=== PATIENT | female | born 1960 | race Caucasian/White ===

== ENCOUNTER 2020-08-04 15:35 | Outpatient (REF) | payer OTHER, SELFPAY | END 2020-08-04 15:36 | disposition home or self-care (01) | LOC: HO.HMGCX 15:35 | PROVIDERS: PCP Family Medicine; Visit Provider Family Medicine | DX: Z13.89 Encounter for screening for other disorder (principal) ==

== ENCOUNTER 2020-08-08 11:28 | Outpatient (REF) | payer OTHER, SELFPAY ==
--- NOTE | 2020-08-08 | US_ITS ---
EXAMINATION: US ABDOMEN LIMITED CLINICAL INFORMATION: Elevated transaminase levels. COMPARISON: MRI abdomen 04/27/2020. CT abdomen and pelvis 03/22/2020. TECHNIQUE: Real-time imaging of the right upper quadrant abdominal viscera. FINDINGS: PANCREAS: The visualized head and body of the pancreas appears unremarkable. Remainder of the pancreas is obscured by bowel gas. LIVER: Diffuse increased echogenicity of the liver parenchyma. No focal hepatic lesion. There is no intrahepatic biliary duct dilatation seen. GALLBLADDER: Normal. The gallbladder is physiologically distended without evidence of stones, sludge, polyps, wall thickening or pericholecystic fluid. COMMON BILE DUCT: Normal in caliber measuring 0.4 cm in diameter. RIGHT KIDNEY: Normal. No hydronephrosis. No renal calculi or focal parenchymal lesions. The kidney measures 10.0 cm in maximum dimension. FREE FLUID: None. US/US abdomen limited IMPRESSION: 1. Increased hepatic echogenicity more commonly seen with hepatic steatosis. Hepatic steatosis is also seen on the previous MRI of 04/27/2020. 2. No focal liver lesions or biliary duct dilatation. 3. Otherwise unremarkable study.
== END 2020-08-08 11:29 | disposition home or self-care (01) ==
LOC: HO.HMGCX 11:28
PROVIDERS: PCP Family Medicine; Visit Provider Family Medicine
DX: R74.01 Elevation of levels of liver transaminase levels (principal)
CPT/HCPCS: 76705

== ENCOUNTER → 2020-09-05 09:22 | Outpatient (BNVA) | payer MEDICAID, SELFPAY | PROVIDERS: Visit Provider Physician Assistant | DX: Z76.89 Persons encountering health services in other specified circumstances (principal) ==

== ENCOUNTER 2020-11-28 09:29 | Outpatient (REF) | payer MEDICAID, SELFPAY ==
[2020-11-28 10:28] LABS: MANUAL DIFF FLAG NO
[2020-11-28 10:41] LABS: Basophils Percent Auto 0.5 % (0-2); Eosinophils Absolute Auto 0.1 X10*3/uL (0.0-0.4); Eosinophils Percent Auto 1.8 % (0-4); Hematocrit 38.1 % (37-47); Hemoglobin 12.9 g/dl (12.0-16.0); Imm Gran Abs Auto 0.01 X10*3/uL (0.00-0.03); Imm Gran Pct Auto 0.3 % (0.0-0.4); Lymphocytes Absolute Auto 1.9 X10*3/uL (1.2-4.9); Mean Corpuscular HGB Conc 33.9 g/dl (31.0-35.0); Mean Corpuscular Hemoglobin 30.1 pg (27.0-33.0); Mean Platelet Volume 9.4 fL (9.4-12.3); Monocytes Absolute Auto 0.2 X10*3/uL (0.1-1.2); Monocytes Percent Auto 5.6 % (2-11); Neutrophils Absolute Auto 1.7 X10*3/uL (2.0-8.3); Neutrophils Percent Auto 43.8 % (45-73); Platelet Count 291 X10*3/uL (160-400); Red Blood Count 4.28 X10*6/uL (4.20-5.50); Red Cell Distribution Width 12.2 % (11.0-16.0); White Blood Count 3.9 X10*3/uL (4.8-10.8)
[2020-11-28 10:51] LABS: Alanine Aminotransferase 54 U/L (0-31); Albumin Level 4.5 g/dL (3.5-5.0); Alkaline Phosphatase 78 U/L (39-117); Anion Gap 11 (12-20); Aspartate Amino Transferase 40 U/L (5-31); Bilirubin Direct 0.2 mg/dL (0.0-0.5); Bilirubin Total 0.7 mg/dL (0.0-1.0); Blood Urea Nitrogen 14 mg/dL (9-16); Calcium 9.3 mg/dL (8.4-10.2); Carbon Dioxide 28 mmol/L (22-29); Chloride 108 mmol/L (96-108); Cholesterol 201 mg/dL; Estimated Glomerular Filt Rate > 60; Glucose Random 105 mg/dL (60-115); HDL Cholesterol 66 mg/dL; LDL Cholesterol Calculated 120 mg/dl; Potassium 4.1 mmol/L (3.3-5.1); Sodium 143 mmol/L (135-145); Total Protein 7.2 g/dL (6.5-8.0); Triglycerides 75 mg/dL
[2020-11-28 11:14] LABS: HBc Num1 0.06 S/CO (0.00-0.79); Hepatitis B Core Antibody Nonreactive (Nonreactive); ~HepC Num1 0.05 S/CO (0.00-0.79); ~Hepatitis C Antibody Nonreactive (Nonreactive)
[2020-11-28 11:28] LABS: HBS Num1 32.05 mIU/mL (0-7.99); HBsAGNum1 0.32 S/CO (0.00-0.99); Hepatitis B Surface Antigen Negative (Negative); ~Hepatitis B Surface Antibody REACTIVE (Nonreactive)
[2020-11-29 06:37] LABS: Insulin Level Total 8.1 uIU/mL
[2020-11-30 17:02] LABS: Mitochondrial Antibodies NEGATIVE (NEGATIVE)
[2020-12-01 04:43] LABS: ~Hepatitis A Antibody IgM Nonreactive (Nonreactive)
[2020-12-01 13:32] LABS: Anti Nuclear Antibody Screen NEGATIVE (NEGATIVE)
[2020-12-05 12:22] LABS: Smooth Muscle Antibody <20 U (<20)
== END 2020-11-28 09:30 | disposition home or self-care (01) ==
LOC: HO.LAB 09:29
PROVIDERS: PCP Family Medicine; Visit Provider Physician Assistant
DX: R10.11 Right upper quadrant pain (principal); K76.0 Fatty (change of) liver, not elsewhere classified; R79.89 Other specified abnormal findings of blood chemistry; R74.01 Elevation of levels of liver transaminase levels; E78.89 Other lipoprotein metabolism disorders; R74.8 Abnormal levels of other serum enzymes
CPT/HCPCS: 36415; 80053; 80061; 80076; 82248; 83525; 85025; 86038; 86039; 86255; 86256; 86704; 86706; 86709; 86803; 87340

== ENCOUNTER → 2021-01-02 09:55 | Outpatient (BNVA) | payer MEDICAID, SELFPAY | PROVIDERS: PCP Family Medicine; Visit Provider Internal Medicine Gastroenterology ==

== ENCOUNTER 2021-02-05 09:12 | Outpatient (REF) | payer MEDICAID, SELFPAY ==
--- NOTE | ~2021-02-05 | US_ITS ---
EXAMINATION: US ABDOMEN LIMITED WITH LIVER ELASTOGRAPHY CLINICAL INFORMATION: Abnormal serum enzymes. COMPARISON: None. TECHNIQUE: Real-time imaging of the abdominal viscera. Noninvasive ultrasound liver fibrosis assessment is performed using Mark ElastPQ point quantification shear wave elastography (pSWE) with a C5-2 MHz transducer. Multiple elastography samples are obtained. FINDINGS: PANCREAS: The visualized pancreatic head and body are normal in appearance. The remainder of the pancreas is obscured from visualization by the overlying bowel gas. LIVER: The liver demonstrates normal size, contour and increased echogenicity. There is a focal area of fatty sparing. No additional lesions seen. There is no intrahepatic ductal dilatation. The right lobe measures 14.9 cm in length. The left lobe measures 10.8 cm in length. Portal flow is antegrade. Shear wave liver elastography median stiffness is 1.79 m/s (reference: normal median stiffness is 1.3 m/s or less). IQR/median stiffness to assess sampling precision is 0.28 (reference: good quality data set is IQR/median stiffness of 0.15 or less). GALLBLADDER: Normal. The gallbladder is physiologically distended without evidence of stones, sludge, polyps, wall thickening or pericholecystic fluid. COMMON BILE DUCT: Normal in caliber measuring 0.5 cm in diameter. RIGHT KIDNEY: No hydronephrosis. There is a small echogenic upper pole stone measuring 0.2 x 0.1 cm. There are 2 anechoic cysts measuring 0.8 x 1.0 x 0.8 cm in lower pole and a cyst in the upper/midpole measuring 0.5 x 0.4 x 0.5 cm. The kidney measures 10.0 cm in maximum dimension. FREE FLUID: None. US/US abdomen walker w elastography IMPRESSION: 1. Diffuse hepatic steatosis with areas of focal fatty sparing. Normal hepatopedal flow seen in the portal vein. 2. Nonobstructive echogenic calculi upper pole and 2 cysts in the upper/midpole and lower pole right kidney. 3. Liver elastography: Mean liver stiffness measures 1.79 corresponding to cACLD suggestive. REFERENCE: Society of Radiologists in Ultrasound Liver Stiffness Thresholds (2020): LIVER STIFFNESS THRESHOLDS: *Liver Stiffness equal or less than 1.3 m/s: High probability of being normal. *Liver Stiffness less than 1.7 m/s: In the absence of other known clinical signs, rules out compensated advanced chronic liver disease. *Liver Stiffness 1.7-2.1 m/s: Suggestive of compensated advanced chronic liver disease but need further test for confirmation. *Liver Stiffness over 2.1 m/s: Rules in compensated advanced chronic liver disease. *Liver Stiffness over 2.4 m/s: Suggestive of clinically significant portal hypertension. QUALITY OF DATA SET: *IQR/Median value equal or less than 0.15 implies a quality data set. *IQR/Median value over 0.15 implies a poor quality data set. SIGNIFICANT CHANGE FROM PRIOR EXAM: Significant change if liver stiffness measurement is 10% or greater from prior exam. OTHER CONSIDERATIONS: The stage of liver fibrosis may be overestimated in the setting of acute hepatitis, liver inflammation, elevated liver function tests, hepatic vascular congestion, obstructive cholestasis, non-fasting state, and infiltrative diseases such as amyloidosis and lymphoma. In some patients with NAFLD, the liver stiffness thresholds for compensated advanced chronic liver disease may be lower. In causes other than viral hepatitis and NAFLD, liver stiffness thresholds are not well established.
== END 2021-02-05 09:13 | disposition home or self-care (01) ==
LOC: HO.US 09:12
PROVIDERS: Visit Provider Internal Medicine Gastroenterology
DX: R74.8 Abnormal levels of other serum enzymes (principal); E78.89 Other lipoprotein metabolism disorders
CPT/HCPCS: 76705; 76981

== ENCOUNTER → 2021-03-21 11:02 | Outpatient (BNVA) | payer MEDICAID, SELFPAY | PROVIDERS: Referring Provider Physician Assistant; Visit Provider Dietitian, Registered | DX: K21.9 Gastro-esophageal reflux disease without esophagitis (principal) | CPT/HCPCS: 97802 ==

== ENCOUNTER → 2021-06-20 11:26 | Outpatient (BNVA) | payer MEDICAID, SELFPAY | PROVIDERS: Visit Provider Dietitian, Registered | DX: K21.9 Gastro-esophageal reflux disease without esophagitis (principal) | CPT/HCPCS: 97803 ==

== ENCOUNTER 2021-06-25 09:15 | Outpatient (REF) | payer MEDICAID, SELFPAY ==
--- NOTE | ~2021-06-25 | MM_ITS ---
EXAMINATION: MM SCREENING DIGITAL BREAST TOMOSYNTHESIS, BILATERAL CLINICAL INFORMATION: Screening. Asymptomatic. The lifetime risk of breast cancer based on the Tyrer-Cuzick Model is 7%. COMPARISON: Mammography: 10/20/2018, 06/20/2017, 06/17/2016 TECHNIQUE: Digital breast tomosynthesis is performed in both the craniocaudal and mediolateral oblique views along with computer-aided detection (CAD). Synthesized 2D images are generated from the tomosynthesis. FINDINGS: The breasts are heterogeneously dense, which may obscure small masses (ACR BI-RADS breast composition Category c). There are no significant masses, abnormal calcifications, or other abnormalities. No developing density. Parenchymal pattern is similar to prior studies. The axilla are unremarkable. Skin contours are smooth. MM/MM tomosynthesis screening BI IMPRESSION: No mammographic evidence of malignancy. ASSESSMENT: BI-RADS 1: Negative RECOMMENDATION: Routine annual mammography screening. This patient's information was entered into a reminder system with a target due date for their next mammogram.
== END 2021-06-25 09:16 | disposition home or self-care (01) ==
LOC: HO.MAMMO 09:15
PROVIDERS: Visit Provider Internal Medicine
DX: Z12.31 Encounter for screening mammogram for malignant neoplasm of breast (principal)
CPT/HCPCS: 77063; 77067

== ENCOUNTER → 2021-07-10 10:31 | Outpatient (BNVA) | payer MEDICAID, SELFPAY | PROVIDERS: Visit Provider Internal Medicine Gastroenterology | DX: K63.5 Polyp of colon (principal); E78.89 Other lipoprotein metabolism disorders; R74.8 Abnormal levels of other serum enzymes | CPT/HCPCS: 99212 ==

== ENCOUNTER 2021-07-18 11:01 | Outpatient (REF) | payer MEDICAID, SELFPAY ==
[2021-07-18 11:22] LABS: MANUAL DIFF FLAG NO
[2021-07-18 11:45] LABS: Basophils Percent Auto 0.5 % (0-2); Eosinophils Absolute Auto 0.1 X10*3/uL (0.0-0.4); Eosinophils Percent Auto 2.3 % (0-4); Hematocrit 36.8 % (37.0-47.0); Hemoglobin 12.6 g/dl (12.0-16.0); Imm Gran Abs Auto 0.01 X10*3/uL (0.00-0.03); Imm Gran Pct Auto 0.2 % (0.0-0.4); Lymphocytes Percent Auto 44.1 % (20-40); Mean Corpuscular HGB Conc 34.2 g/dl (31.0-35.0); Mean Corpuscular Hemoglobin 30.4 pg (27.0-33.0); Mean Corpuscular Volume 88.7 fL (80.0-98.0); Monocytes Absolute Auto 0.3 X10*3/uL (0.1-1.2); Monocytes Percent Auto 7.2 % (2-11); Neutrophils Percent Auto 45.7 % (45-73); Platelet Count 252 X10*3/uL (160-400); Red Blood Count 4.15 X10*6/uL (4.20-5.50); Red Cell Distribution Width 11.9 % (11.0-16.0); White Blood Count 4.4 X10*3/uL (4.8-10.8)
[2021-07-18 12:02] LABS: Prothrombin Time 11.8 SEC (9.9-13.0)
[2021-07-18 12:10] LABS: Alanine Aminotransferase 22 U/L (0-31); Albumin Level 4.2 g/dL (3.5-5.0); Alkaline Phosphatase 89 U/L (39-117); Anion Gap 12 (12-20); Aspartate Amino Transferase 22 U/L (5-31); Bilirubin Total 0.5 mg/dL (0.0-1.0); Blood Urea Nitrogen 18 mg/dL (9-16); Calcium 9.2 mg/dL (8.4-10.2); Carbon Dioxide 28 mmol/L (22-29); Chloride 109 mmol/L (96-108); Estimated Glomerular Filt Rate > 60; Glucose Random 97 mg/dL (60-115); Potassium 4.5 mmol/L (3.3-5.1); Sodium 144 mmol/L (135-145); Total Protein 6.6 g/dL (6.5-8.0)
== END 2021-07-18 11:02 | disposition home or self-care (01) ==
LOC: HO.LAB 11:01
PROVIDERS: PCP Internal Medicine; Visit Provider Internal Medicine Gastroenterology
DX: E78.89 Other lipoprotein metabolism disorders (principal); R74.8 Abnormal levels of other serum enzymes; K63.5 Polyp of colon; K75.81 Nonalcoholic steatohepatitis (NASH)
CPT/HCPCS: 36415; 80053; 85025; 85610

== ENCOUNTER 2021-10-30 09:24 | Day surgery (SDC) | payer MEDICAID, SELFPAY ==
[2021-10-25 11:59] VITALS: BMI 24.3
--- NOTE | 2021-10-30 09:47 | MHC.SHP ---
Pre-Procedural Eval Section A Date of Service: 10/30/21 Section B Chief Complaint: colon polyp Relevant Family History (Specify if Yes): No Relevant Social History: None Present Medications: see Short Stay Collaborative assessment Medical History: Significant History (Elevated liver enzymes Gastroesophageal reflux disease Steatosis) History of Previous Operations: Relevant previous surgery/procedure and date(s) (hysterectomy, endoscopy) Allergies: Allergies Allergy/AdvReac Type Severity Reaction Status Date / Time acetaminophen [ACETAMINOPHEN] Allergy Intermediate Shows Verified 07/10/21 10:50 Hepitis when takes too much oxycodone [OXYCODONE] Allergy Intermediate GI UPSET Verified 07/10/21 10:50 Review of Systems Sugical H&P ROS: Negative: Constitution, Cardiovascular, Respiratory, Neurological, Psychiatric, Hem-Onc, Allergic/Immunologic, Gastrointestinal, Genitourinary, Musculoskeletal, Integumentary, Endocrine and Eyes/Ears/Nose/Throat Exam Surgical H&P Exam: Normal: HEENT, Normal: Heart, Normal: Lungs, Normal: Extremities, Normal: Abdomen, Normal: Skin and Normal: Neurological Plan Diagnosis/Plan: Unchanged I have reviewed the history and physical and performed a pertinent physical examination on my patient. No changes have occurred unless specified.
--- NOTE | 2021-10-30 10:04 | PC.NURSE ---
PT @ 0955 VASOVAGAL DIZZY WITH IV ATTEMPT X 1 - REMOVED & PRESSURE APPLIED, & PALE, HR SBRADY 26 - 30'S - REVERSE TRENDELENBERG & LEGS UP. SUSHANT RN PRESENT WITH THIS RN. NEW IV STARTED #20 R F/A. VERY SCLEROSED VEINS. BP 97/53, HR 45 SBRADY. INC OF STOOL SM AMT. 10:00 IMMEDIATE LR W.O WITH HR MID 40'S. 97/53. (BASELINE 55 HR INITIALLY UPON ARRIVAL. ) ABLE TO AMBULATE 1 ASSIST WITHOUT DIZZINESS FOR FURTHER STOOL, CLEAR YELLOW.) BP 115/61
--- NOTE | 2021-10-30 10:23 | HO.ANESPROP2 ---
HPI - Anesthesia Eval Consult details Narrative: Screening [facility] Active Problems Active Problems: All Active Problems (Updated 07/10/21 @ 11:24 by Ondina Hooker MD) Colon polyp (Acute) Gastroesophageal reflux disease (Acute) Steatosis (Acute) Elevated liver enzymes (Acute) Past Medical History Medical History Elevated liver enzymes Gastroesophageal reflux disease Steatosis Family History Family History Father Hypercholesterolemia Mother Hypertension Osteoporosis Arthritis Family history of problems with anesthesia: No Surgical History Surgical History History of hysterectomy Hx of colonoscopy Hx of endoscopy History of Problems with Anesthesia: No Social History Social History Household Members Other:: lives with father Alcohol intake: never Patient Tobacco Use Status: Never used Tobacco Use of substances other than those prescribed or required for medical reasons: No Are you DNR?: No Advance Directives: No Advance Directives Information Provided: Yes Patient : No (hysterectomy) Current occupational status: employed 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 Meds Allergies Allergy/AdvReac Type Severity Reaction Status Date / Time acetaminophen [ACETAMINOPHEN] Allergy Intermediate Shows Verified 07/10/21 10:50 Hepitis when takes too much oxycodone [OXYCODONE] Allergy Intermediate GI UPSET Verified 07/10/21 10:50 Active Medications: Current Medications Lactated Ringer's (Lr) 1,000 mls @ 50 mls/hr IVCONT .Q20H [facility] Home Medications Medication Instructions Recorded Confirmed Last Taken Type cholecalciferol (vitamin D3) 10 10 mcg PO DAILY 05/25/20 09/05/20 Unknown History mcg (400 unit) capsule (Vitamin D3) folic acid 800 mcg tablet 0.8 mg PO DAILY 05/25/20 09/05/20 Unknown History omeprazole 20 mg capsule,delayed mg PO 05/25/20 09/05/20 Unknown History release B-complex with vitamin C 1 tab PO DAILY 07/10/21 Unknown History cetirizine 10 mg tablet 10 mg PO DAILY 07/10/21 Unknown History finasteride 5 mg tablet 5 mg PO DAILY 07/10/21 Unknown History milk thistle 500 mg capsule 500 mg PO DAILY 07/10/21 Unknown History Exam Exam Date and Time: October 30, 2021 1023 Height,Weight and Vital Signs: Height 5 ft 2 in Weight 60.328 kg Airway Mallampati Class: II TM Dist: >3cm Neck ROM: Full Loose/Missing/Broken Teeth: No Heart: rrr+[id number] Lungs: cta b/l Assessment and Plan Assessment Anesthesia Assessment: Anesthesia Plan Discussed and Chart Reviewed Final Anesthetic Review Family History of Problems with Anesthesia: No History of Problems with Anesthesia: No NPO: Yes ASA Class: II Final Preanesthetic Review: No Changes in Pt Med Stat, Meds/Allgs Chart Reviewed, Consent Obtained/Reviewed and Anes Risks/Benef Reviewed Patient Risk: Intermediate Procedure Risk: Low Assessment/Block/Sedation in SS: Assess/Block/Sedation-SS Anesthetic Plan Anesthetic Plan: MAC: and Agree w/ Assess. and Plan Disposition: Standard PACU
--- NOTE | 2021-10-30 11:24 | PM.OP ---
Brief Operative Note Date of Service: 10/30/21 Pre-op diagnosis: hx of polyp Post-op diagnosis: same Procedure: see op note Surgeon: Ondina Hooker MD Anesthesia: MAC Was an Lastex Operator used for this Procedure?: No Estimated blood loss (mL): 0 Condition: stable Disposition: PACU
--- NOTE | 2021-10-30 11:25 | W.PM.OPN ---
Operative Note Operative Note Date of Service: 10/30/21 Narrative: Operative Information Procedure Description: Colonoscopy COLONOSCOPY Instrument: Olympus variable stiffness pediatric scope 190L Colonoscopy Monitoring: Vital signs and clinical assessment, continuous EKG monitoring, Pulse oximetry, Carbon Dioxide monitoring and blood pressure monitoring were done throughout the procedure. Colon withdrawal time was 27 minutes. Procedure: The patient was placed in the left lateral decubitis position and pre-procedure medications were administered. After a digital rectal examination of the ano-rectum, the video colonoscope was inserted into the rectum and advanced through the colon to the cecum/TI. The colonoscope was slowly withdrawn in a retrograde panoramic fashion and the colon mucosa was carefully examined including a retroflexed view of the rectum. Findings and interventions are described below. Procedure Difficulty: easy Findings: Terminal Ileum-normal Cecum: 10-12 mm sessile polyp noted adjacent to ileocecal valve. scope was withdrawn and then distal attachement placed. Using this I was able to push the ileocecal valve out of the way and get better visualization of the polyp which was lifted with ORISE. It was removed with cold snare, with small amount of residual tissue removed with forceps. circumferential APC then applied to edges and base of polyp with good effect Ascending Colon: normal Transverse Colon -normal Descending Colon: 6-8 mm sessile polyp removed with forceps Sigmoid Colon: normal Rectum: Retroflexion with small internal hemorrhoids, grade I Anorectum - normal Colon preparation: [place] Bowel Preparation Scale Right colon; 3 Transverse colon: 3 Left colon; 2 (0 = Unprepared colon segment with mucosa not seen due to solid stool that cannot be cleared. 1 = Portion of mucosa of the colon segment seen, but other areas of the colon segment not well seen due to staining, residual stool and/or opaque liquid. 2 = Minor amount of residual staining, small fragments of stool and/or opaque liquid, but mucosa of colon segment seen well. 3 = Entire mucosa of colon segment seen well with no residual staining, small fragments of stool or opaque liquid) Impression and Post Procedure Diagnosis: polyps internal hemorrhoids Plan: High fiber diet leaflet Avoid straining at stool, epsom salts and sitz bath, anusol supps or cream Repeat Colonoscopy in 3 years due to polyps today and prior history or earlier if clinically indicated Above findings were reviewed with the patient and relevant handouts were provided if indicated.
[2021-10-30 11:30] VITALS: BP 86/60; PULSE 48; RESP 10; TEMP 36.2; O2SAT 99
[2021-10-30 11:36] VITALS: BP 94/50; PULSE 48; RESP 17; TEMP 36.5; O2SAT 97
[2021-10-30 11:46] VITALS: BP 112/64; PULSE 51; RESP 18; TEMP 36.1; O2SAT 98
== END 2021-10-30 12:32 | disposition home or self-care (01) ==
PROVIDERS: PCP Internal Medicine; Visit Provider Internal Medicine Gastroenterology
PROC: 0DJD8ZZ Inspection of Lower Intestinal Tract, Via Natural or Artificial Opening Endoscopic (ICD-10-PCS; CPT 45378; principal; 2021-10-30 10:30)
DX: Z12.11 Encounter for screening for malignant neoplasm of colon (principal); D12.0 Benign neoplasm of cecum; D12.4 Benign neoplasm of descending colon; K64.0 First degree hemorrhoids; K21.9 Gastro-esophageal reflux disease without esophagitis; K75.81 Nonalcoholic steatohepatitis (NASH); E78.89 Other lipoprotein metabolism disorders; R74.8 Abnormal levels of other serum enzymes; Z88.8 Allergy status to other drugs, medicaments and biological substances
CPT/HCPCS: 45385; 45380; 45381; 88305; J3010

== ENCOUNTER → 2021-11-23 10:08 | Outpatient (BNVA) | payer MEDICAID, SELFPAY | PROVIDERS: PCP Internal Medicine; Visit Provider Internal Medicine Gastroenterology | DX: Z13.89 Encounter for screening for other disorder (principal) ==

== ENCOUNTER 2021-12-11 01:03 | Emergency (ER) | payer MEDICAID, SELFPAY ==
[2021-12-11 01:24] VITALS: BP 93/71; PULSE 52; RESP 16; TEMP 36.6; O2SAT 100; BMI 24.7
[2021-12-11 02:04] VITALS: BP 136/80; PULSE 61; RESP 14; TEMP 36.7; O2SAT 99
[2021-12-11 04:34] VITALS: BP 140/81; PULSE 54; RESP 16; TEMP 36.6; O2SAT 100
[2021-12-11] MEDS: Ketorolac Tromethamine 15 MG/ML VIAL IM (05:52)
--- NOTE | 2021-12-11 06:02 | PC.NURSE ---
pt a&o, no sob or chest pain. Medicated per Oct.
--- NOTE | 2021-12-11 06:05 | ED.GENADULT ---
HPI - General Adult General Chief complaint: Dental/Oral Stated complaint: abscess ? on R side gum, pain Time Seen by Provider: 12/11/21 05:34 Source: patient and aprn Mode of arrival: ambulatory History of Present Illness HPI narrative: 61-year-old female presents with complaints of facial oral pain with some difficulty on fully opening her mouth and provides a history grinding her teeth but denies any fever or chills and also reports some right-sided neck discomfort that has not been associated with headache or visual disturbances. In addition, she denies any changes in hearing. She states that the neck pain is been ongoing for 2 months. Related Data Home Medications Medication Instructions Recorded Confirmed omeprazole 20 mg capsule,delayed mg PO 05/25/20 09/05/20 release B-complex with vitamin C 1 tab PO DAILY 07/10/21 cetirizine 10 mg tablet 10 mg PO DAILY 07/10/21 finasteride 5 mg tablet 5 mg PO DAILY 07/10/21 milk thistle 500 mg capsule 500 mg PO DAILY 07/10/21 cholecalciferol (vitamin D3) 25 25 mcg PO DAILY 11/23/21 mcg (1,000 unit) tablet Previous Rx's Medication Instructions Recorded colesevelam 625 mg tablet (WelChol) 1,250 mg PO BID 14 Days #56 tab 11/23/21 Allergies Allergy/AdvReac Type Severity Reaction Status Date / Time acetaminophen [ACETAMINOPHEN] Allergy Intermediate Shows Verified 12/11/21 01:30 Hepitis when takes too much oxycodone [OXYCODONE] Allergy Intermediate GI UPSET Verified 12/11/21 01:30 Review of Systems Review of Systems: Pertinent positives and negatives as stated in HPI 10 point review of systems is otherwise negative. 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 GENERAL: Well developed, well nourished, in no acute distress. HEAD: Normocephalic/atraumatic, no pain on palpation over the temporal area EYES: PERRLA, EOMI EARS: Ext canals without abnormality, TMs non-bulging and non-erythematous NOSE: Nares patent bilateral OROPHARYNX: no oral lesions noted, posterior pharynx clear and non-erythematous without noted tonsillar enlargement/erythema/exudates, no noted dental caries and no gingival swelling. On assessment jaw alignment patient is able to open her mouth without appreciated clicking or malalignment NECK: Supple, there is a noted sub cm painful or enlarged lymph node at the right suboccipital LUNGS: Normal breath sounds. No adventitious sounds or accessory muscle use. SpO2<100> CARDIOVASCULAR: Regular rate and rhythm without noted murmurs ABDOMEN: Soft, non-tender, non-distended with bowel sounds. MUSCULOSKELETAL: No tenderness, deformities, or effusions noted on gross inspection. EXTREMITIES: No cyanosis, clubbing or edema. SKIN: Inspection of the skin reveals no rashes NEUROLOGIC: Alert and oriented x 4. Strength and sensation to light touch were grossly intact x 4. Course Course Course Narrative: 61-year-old female with history and clinical presentation consistent with a small isolated subcentimeter enlarged lymph node at the right inferior occipital, there is no right ear pathology and on examination of the jaw there is no dislocation or clicking noted on assessment. In addition intraorally there is no noted gingival swelling, abscess and the only identified right lower molar farida patient denies any pain on tapping. She was provided with combination analgesics and and ESR was obtained. Review of all investigations demonstrates and negative ESR and on re-evaluation patient is feeling much better after the pain medication. She is otherwise discharged home in stable condition with instructions to follow-up with her dentist. Medical Decision Making Lab Data Labs: Lab Results 12/11/21 Range/Units 05:42 ESR 7 (0-20) MM/HR Discharge Plan Discharge Clinical Impression: Jaw pain Patient Disposition: Home, Self-Care Instructions: Atypical Facial Pain (ED) Additional Instructions: 1. Tylenol 1000 mg, por v?a oral, cada 6 horas seg?n sea necesario para controlar el dolor. No exceda los 4000 mg dentro de las 24 horas. 2. Ibuprofeno 400 mg, por v?a oral con leche o comida, cada 6 horas seg?n sea necesario para controlar el dolor. 3. Realice un seguimiento con reza proveedor de atenci?n primaria en los pr?ximos 1 a 2 d?as para destiny reevaluaci?n adicional del manejo ambulatorio. Regrese a la nneka de emergencias si los s?ntomas empeoran. Prescriptions: No Action finasteride 5 mg tablet 5 mg PO DAILY 0RF cetirizine 10 mg tablet 10 mg PO DAILY 0RF milk thistle 500 mg capsule 500 mg PO DAILY 0RF Rx Instructions: give with meal/snack B-complex with vitamin C Tablet 1 tab PO DAILY 0RF omeprazole 20 mg capsule,delayed release(DR/EC) PO 0RF cholecalciferol (vitamin D3) 25 mcg (1,000 unit) tablet 25 mcg PO DAILY 0RF colesevelam [WelChol] 625 mg tablet 1,250 mg PO BID 14 Days Qty: 56 0RF Referrals: Kevyn Hdz MD [Primary Care Provider] - Print Language: Arabic
[2021-12-11 06:21] LABS: Erythrocyte Sedimentation Rate 7 MM/HR (0-20)
== END 2021-12-11 07:01 | disposition home or self-care (01) ==
PROVIDERS: Emergency Provider Student in an Organized Health Care Education/Training Program; PCP Internal Medicine
DX: K04.7 Periapical abscess without sinus (principal); R68.84 Jaw pain; Z79.899 Other long term (current) drug therapy
CPT/HCPCS: 36415; 85652; 96372; 99284; J1885

== ENCOUNTER 2022-05-27 10:00 | Outpatient (REF) | payer MEDICAID, SELFPAY ==
[2022-05-27 11:20] LABS: MANUAL DIFF FLAG NO
[2022-05-27 11:45] LABS: Basophils Percent Auto 0.4 % (0-2); Eosinophils Absolute Auto 0.1 X10*3/uL (0.0-0.4); Eosinophils Percent Auto 1.7 % (0-4); Hematocrit 39.1 % (37.0-47.0); Hemoglobin 13.2 g/dl (12.0-16.0); Imm Gran Abs Auto 0.01 X10*3/uL (0.00-0.03); Imm Gran Pct Auto 0.2 % (0.0-0.4); Lymphocytes Percent Auto 42.7 % (20-40); Mean Corpuscular HGB Conc 33.8 g/dl (31.0-35.0); Mean Corpuscular Hemoglobin 29.7 pg (27.0-33.0); Mean Corpuscular Volume 88.1 fL (80.0-98.0); Mean Platelet Volume 8.6 fL (9.4-12.3); Monocytes Absolute Auto 0.3 X10*3/uL (0.1-1.2); Neutrophils Absolute Auto 2.3 x10*3/uL (2.0-8.3); Platelet Count 272 X10*3/uL (160-400); Red Blood Count 4.44 X10*6/uL (4.20-5.50); Red Cell Distribution Width 11.8 % (11.0-16.0); White Blood Count 4.7 X10*3/uL (4.8-10.8)
[2022-05-27 12:21] LABS: Alanine Aminotransferase 24 U/L (0-31); Albumin Level 4.5 g/dL (3.5-5.0); Alkaline Phosphatase 92 U/L (39-117); Anion Gap 15 (12-20); Aspartate Amino Transferase 24 U/L (5-31); Bilirubin Total 0.5 mg/dL (0.0-1.0); Blood Urea Nitrogen 22 mg/dL (9-16); Calcium 9.5 mg/dL (8.4-10.2); Carbon Dioxide 26 mmol/L (22-29); Chloride 107 mmol/L (96-108); Estimated Glomerular Filt Rate > 60; Glucose Random 99 mg/dL (60-115); Potassium 4.8 mmol/L (3.3-5.1); Sodium 143 mmol/L (135-145)
[2022-05-27 13:08] LABS: Folate 15.5 ng/mL (> or = 4.0); Vitamin B12 620 pg/mL (200-900)
== END 2022-05-27 10:01 | disposition home or self-care (01) ==
LOC: HO.LAB 10:00
PROVIDERS: PCP Internal Medicine; Referring Provider Internal Medicine; Visit Provider Internal Medicine Gastroenterology
DX: R74.8 Abnormal levels of other serum enzymes (principal); K75.81 Nonalcoholic steatohepatitis (NASH); E78.89 Other lipoprotein metabolism disorders
CPT/HCPCS: 36415; 80053; 82607; 82746; 85025; 99212

== ENCOUNTER 2022-07-01 09:36 | Outpatient (REF) | payer MEDICAID, SELFPAY ==
--- NOTE | ~2022-07-01 | MM_ITS ---
EXAMINATION: MM SCREENING DIGITAL BREAST TOMOSYNTHESIS, BILATERAL CLINICAL INFORMATION: Screening. Asymptomatic. COMPARISON: Mammography: 06/25/2021 and studies dating back to 06/17/2016. TECHNIQUE: Digital breast tomosynthesis is performed in both the craniocaudal and mediolateral oblique views along with computer-aided detection (CAD). Synthesized 2D images are generated from the tomosynthesis. FINDINGS: The breasts are heterogeneously dense, which may obscure small masses (ACR BI-RADS breast composition Category c). There are some skin calcifications noted bilaterally. On right mediolateral oblique projection there is question of an asymmetric density about the deep superior aspect. However, tomosynthesis views demonstrate this to represent superimposition of fibroglandular tissue. No new abnormal dominant mass is appreciated. MM/MM tomosynthesis screening BI IMPRESSION: No significant changes from prior exam. ASSESSMENT: BI-RADS 2: Benign. RECOMMENDATION: Routine annual mammography screening. This patient's information was entered into a reminder system with a target due date for their next mammogram.
== END 2022-07-01 09:37 | disposition home or self-care (01) ==
LOC: HO.MAMMO 09:36
PROVIDERS: PCP Internal Medicine; Visit Provider Internal Medicine
DX: Z12.31 Encounter for screening mammogram for malignant neoplasm of breast (principal)
CPT/HCPCS: 77063; 77067

== ENCOUNTER 2022-08-09 08:07 | Emergency (ER) | payer MEDICAID, SELFPAY ==
--- NOTE | ~2022-08-09 | CT_ITS ---
EXAMINATION: CT ABDOMEN AND PELVIS WITH CONTRAST CLINICAL INFORMATION: Abdominal pain, diarrhea and nausea COMPARISON: Previous CT of the abdomen and pelvis February 2020, MRI of the abdomen April 2020 and abdominal ultrasound most recent January 2021 TECHNIQUE: Multidetector volumetric images were obtained from the superior aspect of the liver through the pubic symphysis following administration 85 mL of Omnipaque 350 intravenous contrast. Sagittal and coronal reformatted images were obtained on the technologist's workstation. Oral contrast: Yes This CT examination was performed using dose optimization techniques as appropriate, variously including the following: *Automated exposure control *Adjustment of mA and/or kV according to patient size (this includes techniques or standardized protocols for targeted exams where dose is matched to indication/reason for exam; i.e. extremities or head) *Use of iterative reconstruction technique DLP: 472 mGy-cm FINDINGS: LUNG BASES: The visualized lung bases are unremarkable. LIVER, GALLBLADDER, AND BILIARY TREE: Mild fatty infiltration of the liver. Stable area of increased enhancement in the peripheral right lobe of the liver probably representing a small hemangioma axial image 16 series 3. No other focal liver lesion. Normal gallbladder. No biliary duct dilatation. PANCREAS: Unremarkable. SPLEEN: Unremarkable. Stable left upper quadrant splenule. ADRENAL GLANDS: Unremarkable. KIDNEYS AND URETERS: Small bilateral low-attenuation renal lesions probably representing cysts. These are not appreciably changed from previous exams. No imaging follow-up. Question small 1 to 2 mm stone in the mid left kidney BLADDER: Unremarkable. GASTROINTESTINAL TRACT: There is question of mild distention and wall thickening of the proximal small bowel. This may represent enteritis. The small and large bowel are otherwise unremarkable. The appendix is unremarkable. The stomach is unremarkable. ABDOMINAL WALL: Small umbilical and infraumbilical hernias containing fat. LYMPH NODES: Mild fat stranding of the small bowel mesentery and increasing small bowel mesentery lymphadenopathy. This may represent mesenteritis. Differential would include changes related to small bowel inflammation. VASCULAR: Unremarkable. PELVIC VISCERA: Unremarkable. OSSEOUS STRUCTURES: Mild degenerative changes of the spine. Stable small sclerotic lesion in the left L4 vertebral probably representing a bone island. CT/CT abdomen pelvis w IV con IMPRESSION: New small bowel mesentery lymphadenopathy and fat stranding and question mild dilatation of the proximal small bowel and small bowel wall thickening. Differential would include enteritis and mesenteritis. Question small left renal stone. Stable small renal cysts. Fatty liver. Stable probable small hemangioma in the right lobe of the liver. Fleischner guidelines were followed.
[2022-08-09 08:10] VITALS: BP 135/67; PULSE 84; RESP 16; TEMP 36.6; O2SAT 98; BMI 25.2
--- NOTE | 2022-08-09 08:32 | ED.NAVMDI ---
HPI - Nausea/Vomiting/Diarrhea General Chief complaint: Nausea/Vomiting/Diarrhea Stated complaint: Stomach Pain Diarrhea Time Seen by Provider: 08/09/22 08:15 Source: patient Mode of arrival: ambulatory Limitations: no limitations History of Present Illness HPI Narrative: 62-year-old female with history of GERD who presents to the ER for evaluation of nausea, diarrhea and diffuse upset stomach for the last day and a half. She states the last time she ate was Friday at 14:00, it was some [place] and food. She states since then she has had nonbloody watery diarrhea, diffuse belly ache with nausea and gas. She has had some chills but no fevers. No urinary symptoms. She states her father who also ate the same [place] food woke up this morning with diarrhea. She denies any URI symptoms. She denies any focal abdominal pain it is more diffuse and cramping in nature. MD elicited complaint: nausea, vomiting and abdominal pain Onset (ago): day(s) (1.5) Description of diarrhea: watery Associated nausea: Yes Associated abdominal pain: Yes Location of pain: diffuse Radiation: diffuse Pain consistency: intermittent Severity: moderate Quality: cramping Exacerbating factors: none Relieving factors: none Context: possible food poisoning Associated symptoms: myalgias, fever/chills, loss of appetite, malaise, nausea/vomiting and weakness Related Data Home Medications Medication Instructions Recorded Confirmed omeprazole 20 mg capsule,delayed mg PO 05/25/20 09/05/20 release B-complex with vitamin C 1 tab PO DAILY 07/10/21 cetirizine 10 mg tablet 10 mg PO DAILY 07/10/21 finasteride 5 mg tablet 5 mg PO DAILY 07/10/21 milk thistle 500 mg capsule 500 mg PO DAILY 07/10/21 cholecalciferol (vitamin D3) 25 25 mcg PO DAILY 11/23/21 mcg (1,000 unit) tablet Previous Rx's Medication Instructions Recorded colesevelam 625 mg tablet (WelChol) 1,250 mg PO BID 2 weeks #56 tabs 11/23/21 hydrocodone 5 mg-acetaminophen 325 1 tab PO Q8H PRN severe pain 08/09/22 mg tablet (scale score 7-10) #5 tabs ondansetron 4 mg disintegrating 4 mg PO Q8H PRN nausea and 08/09/22 tablet vomiting #7 tabs Allergies Allergy/AdvReac Type Severity Reaction Status Date / Time acetaminophen [ACETAMINOPHEN] Allergy Intermediate Shows Verified 05/27/22 10:11 Hepitis when takes too much oxycodone [OXYCODONE] Allergy Intermediate GI UPSET Verified 05/27/22 10:11 Review of Systems Review of Systems: Constitutional: No Fever, + Chills ENT/Mouth: No sore throat, No Rhinorrhea, No Swallowing Difficulty Cardiovascular: No Chest Pain, No SOB, No Orthopnea, No Edema Respiratory: No Cough, No Sputum, No Wheezing, No dyspnea Gastrointestinal: + Nausea, No Vomiting, + Diarrhea, + abdominal Pain, No Hematochezia, No Melena Genitourinary: No Dysuria, No Urinary Frequency, No Hematuria Musculoskeletal: + joint pain, + Myalgias Skin: No Skin Lesions, No rash Neuro: + Weakness, No Numbness, No Dizziness, No Headache Psych: No Anxiety/Panic, No Depression Heme/Lymph: No Bruising, No Lymphadenopathy Endocrine: No Polyuria, No Polydipsia Gastrointestinal: Gastrointestinal: Reports nausea PMFSH Past Medical History Medical History Elevated liver enzymes Gastroesophageal reflux disease Steatosis Surgical History History of hysterectomy Hx of colonoscopy Hx of endoscopy Family History Family History Father Hypercholesterolemia Mother Hypertension Osteoporosis Arthritis Social History Social History Household Members Other:: lives with father Alcohol intake: never Patient Tobacco Use Status: Never used Tobacco Smoked in Last 30 Days: No Use of substances other than those prescribed or required for medical reasons: No Advance Directives: No Advance Directives Information Provided: Yes Current occupational status: employed 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 Oriented X3. No acute distress. Eyes: Pupils equal, round and reactive to light. ENT: Pharynx normal. Neck: Normal inspection. Neck supple. CVS: Normal heart rate and rhythm. Pulses normal. Respiratory: No respiratory distress. Breath sounds normal. Abdomen: Soft mild diffuse abdominal tenderness to deep palpation without guarding or rebound, hyperactive +BS x4 Skin: Skin warm and dry. Normal skin color. Normal skin turgor. No rashes. Extremities: No lower extremity edema. Neuro: Oriented X 3. No motor deficit. No sensory deficit. Course Course Course Narrative: 62-year-old female presenting with nausea, nonbloody diarrhea and intermittent abdominal pains for the last day and half. Started after she ate some [place] food on Friday. She denies any blood in her stool. Doubt bacterial source. Will check stool samples, basic labs, and hydrate with IV fluids. Will reassess. Hold off on further imaging for now Reevaluation(s) Reevaluation #1: Labs show a minor leukopenia, WBC 3.6. No major electrolyte abnormalities. She continues to complain of some abdominal pain and is having ongoing loose stools. Will send stool studies and get CT scan for further evaluation. Reevaluation #2: CT scan showing new small bowel mesentery lymphadenopathy and fat stranding, question mild dilatation of the proximal small bowel and small bowel wall thickening. Differential would include enteritis and mesenteritis. Negative for C diff. found to be positive for Astrovirus, causing her to have viral gastroenteritis. Treatment is supportive care. She is tolerating p.o.. Pain is better controlled. Comfortable discharge home with pain control, antiemetics. Patient updated on results And plan. Medications Administered Discontinued Medications Generic Name Dose Route Start Last Admin Trade Name Freq PRN Reason Stop Dose Admin Sodium Chloride 1,000 mls @ 999 mls/hr 08/09/22 08:30 08/09/22 10:43 Ns IVCONT 08/09/22 09:30 Infused .Q1H1M SHIRA Infusion Iohexol 85 ml 08/09/22 12:09 08/09/22 12:10 Iohexol 350 Mg/Ml 100 Ml Infus..Btl IV 08/09/22 12:10 85 ml ONCE ONE Administration Morphine Sulfate 4 mg 08/09/22 11:28 12/16/22 12:09 Morphine Sulfate 4 Mg/Ml Cartridge IVPUSH 08/09/22 11:29 4 mg ONCE ONE Administration Protocol Ondansetron HCl 4 mg 08/09/22 08:16 08/09/22 09:04 Ondansetron Hcl 4 Mg/2 Ml Vial IVPUSH 08/09/22 08:17 4 mg ONCE ONE Administration Medical Decision Making Lab Data Result Diagrams: 08/09/22 09:13 08/09/22 09:13 Labs: Lab Results 08/09/22 08/09/22 08/09/22 Range/Units 09:00 09:00 09:13 WBC 3.6 L (4.8-10.8) X10*3/uL RBC 4.09 L (4.20-5.50) X10*6/uL Hgb 12.0 (12.0-16.0) g/dl Hct 35.4 L (37.0-47.0) % MCV 86.6 (80.0-98.0) fL MCH 29.3 (27.0-33.0) pg MCHC 33.9 (31.0-35.0) g/dl RDW 11.9 (11.0-16.0) % Plt Count 184 D (160-400) X10*3/uL MPV 8.3 L (9.4-12.3) fL Immature Gran % (Auto) 0.0 (0.0-0.4) % Neut % (Auto) 63.6 (45-73) % Lymph % (Auto) 21.5 (20-40) % [place] % (Auto) 13.5 H (2-11) % Eos % (Auto) 1.1 (0-4) % Baso % (Auto) 0.3 (0-2) % Lymph # (Auto) 0.8 L (1.2-4.9) X10*3/uL [place] # (Auto) 0.5 (0.1-1.2) X10*3/uL Eos # (Auto) 0.0 (0.0-0.4) X10*3/uL Baso # (Auto) 0.0 (0.0-0.2) X10*3/uL Abs Immat Gran (auto) 0.00 (0.00-0.03) X10*3/uL Absolute Neuts (auto) 2.3 (2.0-8.3) x10*3/uL Absolute Nucleated RBC 0.000 (0.0-0.012) X10*3/uL Nucleated RBC % (auto) 0.0 (0.0-0.2) /100WBC Sodium (135-145) mmol/L Potassium (3.3-5.1) mmol/L Chloride (96-108) mmol/L Carbon Dioxide (22-29) mmol/L Anion Gap (12-20) BUN (9-16) mg/dL Creatinine (0.5-1.4) mg/dL Estim Creat Clear Calc Estimated GFR Random Glucose (60-115) mg/dL Calcium (8.4-10.2) mg/dL Magnesium (1.6-2.6) mg/dL Total Bilirubin (0.0-1.0) mg/dL Direct Bilirubin (0.0-0.5) mg/dL AST (5-31) U/L ALT (0-31) U/L Alkaline Phosphatase (39-117) U/L Total Protein (6.5-8.0) g/dL Albumin (3.5-5.0) g/dL Lipase (8-78) U/L Urine Color Urine Appearance Urine pH (5.0-9.0) Ur Specific [place] (1.005-1.025) Urine Protein (Neg-Trace) mg/dL Urine Glucose (UA) (Negative) mg/dL Urine Ketones (Negative) mg/dL Urine Blood (Negative) Urine Nitrite (Negative) Ur Leukocyte Esterase (Negative) Urine RBC (0-2) /HPF Urine WBC (0-5) /HPF Ur Squamous Epith Cells (0-2) /HPF Urine Bacteria (None Seen) Hyaline Casts (0-2) /LPF Stl C. cayetanensis PCR (Not Detect.) Stool Rotavirus A PCR (Not Detect.) Stl Adenov F 40/41 PCR (Not Detect.) Stool Astrovirus (PCR) (Not Detect.) Stool Campylobacter PCR (Not Detect.) Stool Cryptosporidium PCR (Not Detect.) Stl Sh Tox Pr E STEC PCR (Not Detect.) Stool E coli O157 PCR (Not Detect.) Stl Enterotoxigenic E PCR (Not Detect.) Stool EPEC (PCR) (Not Detect.) Stool EAEC (PCR) (Not Detect.) Stl E. histolytica PCR (Not Detect.) Stool Giardia Lamblia PCR (Not Detect.) Stl P. shigelloides PCR (Not Detect.) Stool Salmonella PCR (Not Detect.) Stool Sapovirus (PCR) (Not Detect.) Stl Shigella/EIEC PCR (Not Detect.) St Y.enterocolitica PCR (Not Detect.) Stool Vibrio (PCR) (Not Detect.) Stl Vibrio cholerae PCR (Not Detect.) Stl Norovirus GI/GII PCR (Not Detect.) C. difficile Tox B Gene (Negative) COVID-19 (CARLA) Negative (Negative) COVID-19 Clin Com See Note Influenza Type A (CRISTIANO) Negative (Negative) Influenza Type B (CRISTIANO) Negative (Negative) Influenza A & B Note See Note 08/09/22 08/09/22 08/09/22 Range/Units 09:13 12:10 12:30 WBC (4.8-10.8) X10*3/uL RBC (4.20-5.50) X10*6/uL Hgb (12.0-16.0) g/dl Hct (37.0-47.0) % MCV (80.0-98.0) fL MCH (27.0-33.0) pg MCHC (31.0-35.0) g/dl RDW (11.0-16.0) % Plt Count (160-400) X10*3/uL MPV (9.4-12.3) fL Immature Gran % (Auto) (0.0-0.4) % Neut % (Auto) (45-73) % Lymph % (Auto) (20-40) % [place] % (Auto) (2-11) % Eos % (Auto) (0-4) % Baso % (Auto) (0-2) % Lymph # (Auto) (1.2-4.9) X10*3/uL [place] # (Auto) (0.1-1.2) X10*3/uL Eos # (Auto) (0.0-0.4) X10*3/uL Baso # (Auto) (0.0-0.2) X10*3/uL Abs Immat Gran (auto) (0.00-0.03) X10*3/uL Absolute Neuts (auto) (2.0-8.3) x10*3/uL Absolute Nucleated RBC (0.0-0.012) X10*3/uL Nucleated RBC % (auto) (0.0-0.2) /100WBC Sodium 139 (135-145) mmol/L Potassium 3.6 D (3.3-5.1) mmol/L Chloride 108 (96-108) mmol/L Carbon Dioxide 24 (22-29) mmol/L Anion Gap 11 L (12-20) BUN 10 (9-16) mg/dL Creatinine 0.72 (0.5-1.4) mg/dL Estim Creat Clear Calc 72.3 Estimated GFR > 60 Random Glucose 100 (60-115) mg/dL Calcium 8.2 L D (8.4-10.2) mg/dL Magnesium 2.0 (1.6-2.6) mg/dL Total Bilirubin 1.1 H (0.0-1.0) mg/dL Direct Bilirubin 0.3 (0.0-0.5) mg/dL AST 33 H (5-31) U/L ALT 31 (0-31) U/L Alkaline Phosphatase 81 (39-117) U/L Total Protein 5.5 L (6.5-8.0) g/dL Albumin 3.5 (3.5-5.0) g/dL Lipase 20 (8-78) U/L Urine Color Yellow Urine Appearance Cloudy Urine pH 5.5 (5.0-9.0) Ur Specific [place] 1.015 (1.005-1.025) Urine Protein Negative (Neg-Trace) mg/dL Urine Glucose (UA) Negative (Negative) mg/dL Urine Ketones Trace (Negative) mg/dL Urine Blood Negative (Negative) Urine Nitrite Negative (Negative) Ur Leukocyte Esterase Small (1+) H (Negative) Urine RBC 11-20 H (0-2) /HPF Urine WBC 11-20 H (0-5) /HPF Ur Squamous Epith Cells 6-10 (0-2) /HPF Urine Bacteria None Seen (None Seen) Hyaline Casts 3-5 (0-2) /LPF Stl C. cayetanensis PCR (Not Detect.) Stool Rotavirus A PCR (Not Detect.) Stl Adenov F 40/41 PCR (Not Detect.) Stool Astrovirus (PCR) (Not Detect.) Stool Campylobacter PCR (Not Detect.) Stool Cryptosporidium PCR (Not Detect.) Stl Sh Tox Pr E STEC PCR (Not Detect.) Stool E coli O157 PCR (Not Detect.) Stl Enterotoxigenic E PCR (Not Detect.) Stool EPEC (PCR) (Not Detect.) Stool EAEC (PCR) (Not Detect.) Stl E. histolytica PCR (Not Detect.) Stool Giardia Lamblia PCR (Not Detect.) Stl P. shigelloides PCR (Not Detect.) Stool Salmonella PCR (Not Detect.) Stool Sapovirus (PCR) (Not Detect.) Stl Shigella/EIEC PCR (Not Detect.) St Y.enterocolitica PCR (Not Detect.) Stool Vibrio (PCR) (Not Detect.) Stl Vibrio cholerae PCR (Not Detect.) Stl Norovirus GI/GII PCR (Not Detect.) C. difficile Tox B Gene NEGATIVE (Negative) COVID-19 (CARLA) (Negative) COVID-19 Clin Com Influenza Type A (CRISTIANO) (Negative) Influenza Type B (CRISTIANO) (Negative) Influenza A & B Note 08/09/22 Range/Units 12:30 WBC (4.8-10.8) X10*3/uL RBC (4.20-5.50) X10*6/uL Hgb (12.0-16.0) g/dl Hct (37.0-47.0) % MCV (80.0-98.0) fL MCH (27.0-33.0) pg MCHC (31.0-35.0) g/dl RDW (11.0-16.0) % Plt Count (160-400) X10*3/uL MPV (9.4-12.3) fL Immature Gran % (Auto) (0.0-0.4) % Neut % (Auto) (45-73) % Lymph % (Auto) (20-40) % [place] % (Auto) (2-11) % Eos % (Auto) (0-4) % Baso % (Auto) (0-2) % Lymph # (Auto) (1.2-4.9) X10*3/uL [place] # (Auto) (0.1-1.2) X10*3/uL Eos # (Auto) (0.0-0.4) X10*3/uL Baso # (Auto) (0.0-0.2) X10*3/uL Abs Immat Gran (auto) (0.00-0.03) X10*3/uL Absolute Neuts (auto) (2.0-8.3) x10*3/uL Absolute Nucleated RBC (0.0-0.012) X10*3/uL Nucleated RBC % (auto) (0.0-0.2) /100WBC Sodium (135-145) mmol/L Potassium (3.3-5.1) mmol/L Chloride (96-108) mmol/L Carbon Dioxide (22-29) mmol/L Anion Gap (12-20) BUN (9-16) mg/dL Creatinine (0.5-1.4) mg/dL Estim Creat Clear Calc Estimated GFR Random Glucose (60-115) mg/dL Calcium (8.4-10.2) mg/dL Magnesium (1.6-2.6) mg/dL Total Bilirubin (0.0-1.0) mg/dL Direct Bilirubin (0.0-0.5) mg/dL AST (5-31) U/L ALT (0-31) U/L Alkaline Phosphatase (39-117) U/L Total Protein (6.5-8.0) g/dL Albumin (3.5-5.0) g/dL Lipase (8-78) U/L Urine Color Urine Appearance Urine pH (5.0-9.0) Ur Specific [place] (1.005-1.025) Urine Protein (Neg-Trace) mg/dL Urine Glucose (UA) (Negative) mg/dL Urine Ketones (Negative) mg/dL Urine Blood (Negative) Urine Nitrite (Negative) Ur Leukocyte Esterase (Negative) Urine RBC (0-2) /HPF Urine WBC (0-5) /HPF Ur Squamous Epith Cells (0-2) /HPF Urine Bacteria (None Seen) Hyaline Casts (0-2) /LPF Stl C. cayetanensis PCR Not Detected (Not Detect.) Stool Rotavirus A PCR Not Detected (Not Detect.) Stl Adenov F 40/41 PCR Not Detected (Not Detect.) Stool Astrovirus (PCR) Detected A (Not Detect.) Stool Campylobacter PCR Not Detected (Not Detect.) Stool Cryptosporidium PCR Not Detected (Not Detect.) Stl Sh Tox Pr E STEC PCR Not Detected (Not Detect.) Stool E coli O157 PCR Not applicable (Not Detect.) Stl Enterotoxigenic E PCR Not Detected (Not Detect.) Stool EPEC (PCR) Not Detected (Not Detect.) Stool EAEC (PCR) Not Detected (Not Detect.) Stl E. histolytica PCR Not Detected (Not Detect.) Stool Giardia Lamblia PCR Not Detected (Not Detect.) Stl P. shigelloides PCR Not Detected (Not Detect.) Stool Salmonella PCR Not Detected (Not Detect.) Stool Sapovirus (PCR) Not Detected (Not Detect.) Stl Shigella/EIEC PCR Not Detected (Not Detect.) St Y.enterocolitica PCR Not Detected (Not Detect.) Stool Vibrio (PCR) Not Detected (Not Detect.) Stl Vibrio cholerae PCR Not Detected (Not Detect.) Stl Norovirus GI/GII PCR Not Detected (Not Detect.) C. difficile Tox B Gene (Negative) COVID-19 (CARLA) (Negative) COVID-19 Clin Com Influenza Type A (CRISTIANO) (Negative) Influenza Type B (CRISTIANO) (Negative) Influenza A & B Note Discharge Plan Discharge Clinical Impression: Viral gastroenteritis Patient Disposition: Home, Self-Care Instructions: Gastroenteritis (ED) Additional Instructions: You lab workup today was unremarkable. You have viral GI bug also known as gastroenteritis. Treatment is supportive care, symptoms usually resolve on their own in 48-72 hours. Recommend rest and plenty of oral hydration. Stick to a bland diet like soup and toast while you are not feeling well. Take the prescribed medication as needed for nausea. Recommend over the counter Pepto Bismol for upset stomach and diarrhea. Follow up with your doctor as needed. If you develop new or worsening symptoms call 911 or come back to the ER for further evaluation. Prescriptions: New hydrocodone-acetaminophen 5-325 mg tablet 1 tab PO Q8H PRN (Reason: severe pain (scale score 7-10)) Qty: 5 0RF Rx Instructions: Partial Fill upon patient request. ondansetron 4 mg tablet,disintegrating 4 mg PO Q8H PRN (Reason: nausea and vomiting) Qty: 7 0RF No Action finasteride 5 mg tablet 5 mg PO DAILY cetirizine 10 mg tablet 10 mg PO DAILY milk thistle 500 mg capsule 500 mg PO DAILY Rx Instructions: give with meal/snack B-complex with vitamin C Tablet 1 tab PO DAILY omeprazole 20 mg capsule,delayed release(DR/EC) PO cholecalciferol (vitamin D3) 25 mcg (1,000 unit) tablet 25 mcg PO DAILY colesevelam [WelChol] 625 mg tablet 1,250 mg PO BID 14 Days Qty: 56 0RF
[2022-08-09] MEDS: ondansetron HCL 4 MG/2 ML VIAL IVPUSH (09:04)
[2022-08-09] MEDS: 0.9 % Sodium Chloride 1,000 ML 999 ML IVCONT (09:04)
--- NOTE | 2022-08-09 09:21 | PC.NURSE ---
Pt c/o abdominal pain accompanied by nausea, dizziness and diarrhea since 08/07/22. The pt describes pain as cramping and stabbing. pt denies vomiting. pt is alert and oriented, resting quietly while watching tv. no apparent distress.
[2022-08-09 09:22] VITALS: BP 113/61
[2022-08-09 09:26] LABS: IDNOW Serial# 9DB6401D; Influenza A Negative (Negative); Influenza B2 Negative (Negative)
[2022-08-09 09:39] LABS: MANUAL DIFF FLAG NO
[2022-08-09 09:40] LABS: Basophils Percent Auto 0.3 % (0-2); Eosinophils Percent Auto 1.1 % (0-4); Hematocrit 35.4 % (37.0-47.0); Lymphocytes Absolute Auto 0.8 X10*3/uL (1.2-4.9); Lymphocytes Percent Auto 21.5 % (20-40); Mean Corpuscular HGB Conc 33.9 g/dl (31.0-35.0); Mean Corpuscular Hemoglobin 29.3 pg (27.0-33.0); Mean Corpuscular Volume 86.6 fL (80.0-98.0); Mean Platelet Volume 8.3 fL (9.4-12.3); Monocytes Absolute Auto 0.5 X10*3/uL (0.1-1.2); Monocytes Percent Auto 13.5 % (2-11); Neutrophils Absolute Auto 2.3 x10*3/uL (2.0-8.3); Neutrophils Percent Auto 63.6 % (45-73); Platelet Count 184 X10*3/uL (160-400); Red Blood Count 4.09 X10*6/uL (4.20-5.50); Red Cell Distribution Width 11.9 % (11.0-16.0); White Blood Count 3.6 X10*3/uL (4.8-10.8)
[2022-08-09 09:44] LABS: COVID-19 Test Negative (Negative); IDNOW Serial# 55D5AD1C
[2022-08-09 09:55] LABS: Alanine Aminotransferase 31 U/L (0-31); Albumin Level 3.5 g/dL (3.5-5.0); Alkaline Phosphatase 81 U/L (39-117); Anion Gap 11 (12-20); Aspartate Amino Transferase 33 U/L (5-31); Bilirubin Direct 0.3 mg/dL (0.0-0.5); Bilirubin Total 1.1 mg/dL (0.0-1.0); Blood Urea Nitrogen 10 mg/dL (9-16); Calcium 8.2 mg/dL (8.4-10.2); Carbon Dioxide 24 mmol/L (22-29); Chloride 108 mmol/L (96-108); Creatinine Clr Calc Pharmacy 72.3; Estimated Glomerular Filt Rate > 60; Glucose Random 100 mg/dL (60-115); Lipase 20 U/L (8-78); Potassium 3.6 mmol/L (3.3-5.1); Sodium 139 mmol/L (135-145); Total Protein 5.5 g/dL (6.5-8.0)
[2022-08-09] MEDS: Morphine Sulfate 4 MG/ML CARTRIDGE IVPUSH (12:09)
[2022-08-09] MEDS: iohexoL 350 MG/ML 100 ML INFUS..BTL 85 ML IV (12:10)
[2022-08-09 12:25] LABS: Appearance Urine Cloudy; Color Urine Yellow; Glucose Urine UA Negative (Negative); Leukocyte Esterase Urine Small (1+) (Negative); Nitrite Urine Negative (Negative); PH 5.5 (5.0-9.0); Specific Gravity - Urine 1.015 (1.005-1.025); UMIC TRIGGER UACC YES; Urine Blood Negative (Negative); Urine Ketones Trace mg/dL (Negative); Urine Protein Negative (Neg-Trace)
[2022-08-09 12:33] LABS: Bacteria Urine None Seen (None Seen); UACC Culture Trigger YES
[2022-08-09 13:28] LABS: CDiff Gene PCR NEGATIVE (Negative)
[2022-08-09 14:21] LABS: Adenovirus F 40/41 Not Detected (Not Detect.); Astrovirus Detected (Not Detect.); Campylobacter Not Detected (Not Detect.); Cryptosporidium Not Detected (Not Detect.); Cyclospora cayetanensis Not Detected (Not Detect.); E. coli EAEC Not Detected (Not Detect.); E. coli EPEC Not Detected (Not Detect.); E. coli ETEC Not Detected (Not Detect.); E. coli STEC Not Detected (Not Detect.); Entamoeba histolytica Not Detected (Not Detect.); Giardia lamblia Not Detected (Not Detect.); Norovirus GI/GII Not Detected (Not Detect.); Plesiomonas shigelloides Not Detected (Not Detect.); Rotavirus A Not Detected (Not Detect.); Salmonella Not Detected (Not Detect.); Sapovirus Not Detected (Not Detect.); Shigella sp./EIEC Not Detected (Not Detect.); Vibrio Not Detected (Not Detect.); Vibrio Cholerae Not Detected (Not Detect.); Yersinia enterocolitica Not Detected (Not Detect.)
== END 2022-08-09 15:05 | disposition home or self-care (01) ==
PROVIDERS: Physician Assistant; Emergency Provider Student in an Organized Health Care Education/Training Program; PCP Internal Medicine
DX: A08.4 Viral intestinal infection, unspecified (principal); Z20.822 Contact with and (suspected) exposure to COVID-19
CPT/HCPCS: 74177; 80048; 80076; 81001; 83690; 83735; 85025; 87086; 87493; 87502; 87507; 87635; 96361; 96374; 96375; 99284; J2270; J2405; Q9967

== ENCOUNTER 2022-10-28 09:05 | Outpatient (REF) | payer MEDICAID, SELFPAY ==
[2022-10-28 10:23] LABS: MANUAL DIFF FLAG NO
[2022-10-28 11:01] LABS: Basophils Percent Auto 0.4 % (0-2); Eosinophils Absolute Auto 0.1 X10*3/uL (0.0-0.4); Eosinophils Percent Auto 2.6 % (0-4); Hematocrit 38.8 % (37.0-47.0); Hemoglobin 13.3 g/dl (12.0-16.0); Lymphocytes Absolute Auto 2.2 X10*3/uL (1.2-4.9); Lymphocytes Percent Auto 47.4 % (20-40); Mean Corpuscular HGB Conc 34.3 g/dl (31.0-35.0); Mean Corpuscular Hemoglobin 29.6 pg (27.0-33.0); Mean Corpuscular Volume 86.4 fL (80.0-98.0); Mean Platelet Volume 8.6 fL (9.4-12.3); Monocytes Absolute Auto 0.4 X10*3/uL (0.1-1.2); Monocytes Percent Auto 7.9 % (2-11); Neutrophils Absolute Auto 1.9 x10*3/uL (2.0-8.3); Neutrophils Percent Auto 41.7 % (45-73); Platelet Count 256 X10*3/uL (160-400); Red Blood Count 4.49 X10*6/uL (4.20-5.50); Red Cell Distribution Width 12.2 % (11.0-16.0); White Blood Count 4.6 X10*3/uL (4.8-10.8)
[2022-10-28 11:37] LABS: Alanine Aminotransferase 61 U/L (0-31); Albumin Level 4.4 g/dL (3.5-5.0); Alkaline Phosphatase 85 U/L (39-117); Anion Gap 12 (12-20); Aspartate Amino Transferase 47 U/L (5-31); Bilirubin Total 1.1 mg/dL (0.0-1.0); Blood Urea Nitrogen 13 mg/dL (9-16); Calcium 9.2 mg/dL (8.4-10.2); Carbon Dioxide 28 mmol/L (22-29); Chloride 108 mmol/L (96-108); Estimated Glomerular Filt Rate > 60; Glucose Random 94 mg/dL (60-115); Potassium 4.6 mmol/L (3.3-5.1); Sodium 143 mmol/L (135-145); Total Protein 6.7 g/dL (6.5-8.0)
[2022-10-31 06:05] LABS: Vitamin A 60 mcg/dL (38-98)
== END 2022-10-28 09:06 | disposition home or self-care (01) ==
LOC: HO.LAB 09:05
PROVIDERS: PCP Internal Medicine; Visit Provider Internal Medicine Gastroenterology
DX: K75.81 Nonalcoholic steatohepatitis (NASH) (principal); R10.13 Epigastric pain; K64.9 Unspecified hemorrhoids; E78.89 Other lipoprotein metabolism disorders; R74.8 Abnormal levels of other serum enzymes; Z79.899 Other long term (current) drug therapy
CPT/HCPCS: 36415; 80053; 84590; 85025; 85610; 99212

== ENCOUNTER → 2022-11-27 09:02 | Outpatient (BNVA) | payer MEDICAID, SELFPAY | PROVIDERS: PCP Internal Medicine; Referring Provider Internal Medicine Gastroenterology; Visit Provider Surgery | DX: K64.8 Other hemorrhoids (principal); Z80.3 Family history of malignant neoplasm of breast | CPT/HCPCS: 46600; 99202 ==

== ENCOUNTER 2022-12-02 08:55 | Outpatient (REF) | payer MEDICAID, SELFPAY ==
--- NOTE | ~2022-12-02 | US_ITS ---
EXAMINATION: US ABDOMEN LIMITED WITH LIVER ELASTOGRAPHY CLINICAL INFORMATION: Nonalcoholic steatohepatitis. COMPARISON: None available. TECHNIQUE: Real-time imaging of the abdominal viscera. Noninvasive ultrasound liver fibrosis assessment is performed using Mark ElastPQ point quantification shear wave elastography (2D-SWE) with a C5-2 MHz transducer. Multiple elastography samples are obtained. FINDINGS: PANCREAS: The visualized pancreatic head and body are normal in appearance. The tail of the pancreas is obscured from visualization by the overlying bowel gas. LIVER: The liver demonstrates normal size, contour and increased echogenicity. No focal lesion or intrahepatic biliary duct dilatation. The right lobe measures 15.1 cm in length. The left lobe measures 10.9 cm in length. Portal flow is hepatopedal. Shear wave liver elastography median stiffness is 1.35 m/s (reference: normal median stiffness is 1.3 m/s or less). IQR/median stiffness to assess sampling precision is 0.08 (reference: good quality data set is IQR/median stiffness of 0.15 or less). GALLBLADDER: Normal. The gallbladder is physiologically distended without evidence of stones, sludge, polyps, wall thickening or pericholecystic fluid. COMMON BILE DUCT: Normal in caliber measuring 0.2 cm in diameter. RIGHT KIDNEY: Normal. No hydronephrosis. No renal calculi or focal parenchymal lesions. The kidney measures 9.1 cm in maximum dimension. FREE FLUID: None. US/US abdomen walker w elastography IMPRESSION: 1. Mild hepatic steatosis without focal lesion. 2. Liver Elastography: Median liver stiffness measures1.35 m/s corresponding to cACLD ruled out. REFERENCE: Society of Radiologists in Ultrasound Liver Stiffness Thresholds (2020): LIVER STIFFNESS THRESHOLDS: *Liver Stiffness equal or less than 1.3 m/s: High probability of being normal. *Liver Stiffness less than 1.7 m/s: In the absence of other known clinical signs, rules out compensated advanced chronic liver disease. *Liver Stiffness 1.7-2.1 m/s: Suggestive of compensated advanced chronic liver disease but need further test for confirmation. *Liver Stiffness over 2.1 m/s: Rules in compensated advanced chronic liver disease. *Liver Stiffness over 2.4 m/s: Suggestive of clinically significant portal hypertension. QUALITY OF DATA SET: *IQR/Median value equal or less than 0.15 implies a quality data set. *IQR/Median value over 0.15 implies a poor quality data set. SIGNIFICANT CHANGE FROM PRIOR EXAM: Significant change if liver stiffness measurement is 10% or greater from prior exam. OTHER CONSIDERATIONS: The stage of liver fibrosis may be overestimated in the setting of acute hepatitis, liver inflammation, elevated liver function tests, hepatic vascular congestion, obstructive cholestasis, non-fasting state, and infiltrative diseases such as amyloidosis and lymphoma. In some patients with NAFLD, the liver stiffness thresholds for compensated advanced chronic liver disease may be lower. In causes other than viral hepatitis and NAFLD, liver stiffness thresholds are not well established.
== END 2022-12-02 08:56 | disposition home or self-care (01) ==
LOC: HO.US 08:55
PROVIDERS: PCP Internal Medicine; Visit Provider Internal Medicine Gastroenterology
DX: E78.89 Other lipoprotein metabolism disorders (principal); K74.60 Unspecified cirrhosis of liver; K75.81 Nonalcoholic steatohepatitis (NASH); R74.8 Abnormal levels of other serum enzymes
CPT/HCPCS: 76705; 76981

== ENCOUNTER 2022-12-02 09:25 | Outpatient (REF) | payer MEDICAID, SELFPAY ==
[2022-12-02 10:45] LABS: Alanine Aminotransferase 33 U/L (0-31); Albumin Level 4.3 g/dL (3.5-5.0); Alkaline Phosphatase 92 U/L (39-117); Anion Gap 10 (12-20); Aspartate Amino Transferase 26 U/L (5-31); Bilirubin Total 0.8 mg/dL (0.0-1.0); Blood Urea Nitrogen 15 mg/dL (9-16); Calcium 9.3 mg/dL (8.4-10.2); Carbon Dioxide 28 mmol/L (22-29); Chloride 108 mmol/L (96-108); Estimated Glomerular Filt Rate > 60; Glucose Random 105 mg/dL (60-115); Potassium 4.6 mmol/L (3.3-5.1); Sodium 141 mmol/L (135-145); Total Protein 6.6 g/dL (6.5-8.0)
== END 2022-12-02 09:26 | disposition home or self-care (01) ==
LOC: HO.LAB 09:25
PROVIDERS: PCP Internal Medicine; Visit Provider Internal Medicine Gastroenterology
DX: K75.81 Nonalcoholic steatohepatitis (NASH) (principal)
CPT/HCPCS: 36415; 80053

== ENCOUNTER → 2023-01-08 09:20 | Outpatient (BNVA) | payer MEDICAID, SELFPAY | PROVIDERS: PCP Internal Medicine; Visit Provider Surgery | DX: K64.8 Other hemorrhoids (principal); Z80.3 Family history of malignant neoplasm of breast | CPT/HCPCS: 99212 ==

== ENCOUNTER 2023-01-21 09:18 | Outpatient (REF) | payer MEDICAID, SELFPAY ==
--- NOTE | ~2023-01-21 | CT_ITS ---
EXAMINATION: CT SOFT TISSUE NECK WITH CONTRAST CLINICAL INFORMATION: Neck pain. Lymphadenopathy. COMPARISON: No relevant prior imaging. TECHNIQUE: Following the intravenous administration of 60 mL of Omnipaque 350 intravenous contrast, helical imaging was performed in the axial plane with generation of coronal and sagittal reformatted images. This CT examination was performed using dose optimization techniques as appropriate, variously including the following: *Automated exposure control *Adjustment of mA and/or kV according to patient size (this includes techniques or standardized protocols for targeted exams where dose is matched to indication/reason for exam; i.e. extremities or head) *Use of iterative reconstruction technique DLP: 271 mGy-cm FINDINGS: There are multiple pathologically enlarged heterogeneously enhancing right sided cervical lymph nodes, the majority of which are located within level III. The dominant lymph node best visualized on axial image 66 of 129 series 2 measures 1.3 cm in maximal transaxial dimension. In addition to this finding there is a nodule within the right lobe of the thyroid gland that demonstrates some heterogeneous intralesional calcification measuring 1.3 cm in maximal transaxial dimension which may represent a potential source of zeeshan disease. There is no identifiable mucosal mass however a squamous cell carcinoma cannot be definitively excluded on the basis of this examination and correlation with nasolaryngoscopy is recommended to exclude this possibility. Parapharyngeal and retromaxillary fat is preserved. [employer] spaces are symmetric. The parotid and submandibular glands are normal. The tongue base and epiglottis are normal. Preepiglottic fat is preserved. Glottic and subglottic airways are widely patent. Lung apices are clear. There is no mediastinal or axillary adenopathy within the [id number]-ag-[id number] of this examination. Aortic arch apex is normal. Cervical carotid and vertebral arteries are patent. Internal jugular veins fill symmetrically. There is no acute osseous finding. Specifically no worrisome lytic or blastic osseous lesion. The skull base is intact. No mastoid or middle ear effusion. No active paranasal sinus disease. Limited visualization of the intracranial anatomy reveals no abnormal finding. CT/CT soft tissue neck w IV con IMPRESSION: There are multiple pathologically enlarged heterogeneously enhancing right-sided cervical lymph nodes, the majority of which are located within level III. In addition to this finding there is a nodule within the right lobe of the thyroid gland that demonstrates some heterogeneous intralesional calcification measuring 1.3 cm in maximal transaxial dimension which may represent a potential source of metastatic zeeshan disease. There is no identifiable mucosal mass however a squamous cell carcinoma cannot be definitively excluded on the basis of this examination and correlation with nasolaryngoscopy is recommended to exclude this possibility. This critical result was discussed with Kevyn Barber at 10:24 AM on 01/28/2023 and it was ascertained that the content and urgency of the report was understood at the time of direct communication.
[2023-01-21] MEDS: iohexoL 350 MG/ML 100 ML INFUS..BTL IV (12:36)
== END 2023-01-21 09:19 | disposition home or self-care (01) ==
LOC: HO.CT 09:18
PROVIDERS: PCP Internal Medicine; Visit Provider Internal Medicine
DX: M54.2 Cervicalgia (principal); R59.0 Localized enlarged lymph nodes
CPT/HCPCS: 70491; Q9967

== ENCOUNTER 2023-01-28 11:25 | Outpatient (REF) | payer MEDICAID, SELFPAY ==
--- NOTE | ~2023-01-28 | XR_ITS ---
EXAMINATION: XR CHEST CLINICAL INFORMATION: pos PPD COMPARISON: CXR 2018 TECHNIQUE: 2 views of the chest were obtained. FINDINGS: No significant abnormality is noted involving the heart, lungs, mediastinum, bony thorax or soft tissues. XR/XR chest 2V IMPRESSION: Unremarkable examination.
== END 2023-01-28 11:26 | disposition home or self-care (01) ==
LOC: HO.HHCX 11:25
PROVIDERS: Visit Provider Internal Medicine
DX: Z92.89 Personal history of other medical treatment (principal)
CPT/HCPCS: 71046

== ENCOUNTER 2023-01-30 14:30 | Outpatient (REF) | payer MEDICAID, SELFPAY ==
--- NOTE | ~2023-01-30 | US_ITS ---
EXAMINATION: US THYROID CLINICAL INFORMATION: Suspicious thyroid nodule COMPARISON: CT neck from 01/21/2023. TECHNIQUE: Linear transducer grayscale and color Doppler examination with attention to the region of the thyroid. FINDINGS: SIZE: Measurements of the thyroid lobes and nodules are given in sagittal, anteroposterior and transverse dimensions respectively. Right Thyroid Lobe: 4.8 x 2 x 1.8 cm, volume 9 mL. Left Thyroid Lobe: 4.8 x 2 x 1.4 cm, volume 7 mL. Isthmus: 0.3 cm in maximum AP dimension. THYROID PARENCHYMA AND NODULES: The main finding of concern is a nodule in the right upper pole. Other than nodules, thyroid gland has normal echotexture and has normal vascularity on color Doppler imaging. Nodules detected are as follows: 1.3 x 1.2 x 1.1 cm solid, heterogeneous very hypoechoic, partially calcified nodule of the right upper pole is taller than wide. The border is irregular. There appear to be both punctate and peripheral calcifications of this lesion. ACR TI-RADS score of 13 points, TR5. 0.3 x 0.2 x 0.3 cm hypoechoic, cystic-appearing focus is present in the mid right lobe. 0.5 x 0.4 x 0.5 cm smoothly marginated, noncalcified, very hypoechoic focus with internal echoes is present in region of junction of the right lower pole and isthmus. There appears to be mild Doppler flow within the structure. ACR TI-RADS score of 5 points, TR4. Small 0.3 x 0.2 x 0.3 cm hypoechoic focus in the left upper pole appears to represent a colloid cyst. Also, there appears to be a 0.2 cm colloid cyst in the anterior left lower pole. LYMPH NODES: The right cervical lymphadenopathy is more completely shown on the neck CT of 01/21/2023. A right cervical lymph node of 0.7 cm short axis dimension has heterogeneous echotexture; it appears to contain punctate calcifications. Also, punctate calcific lesions are observed within a right cervical lymph node of 0.9 cm short axis dimension. US/US thyroid IMPRESSION: * There is a highly suspicious TR 5 nodule in the right thyroid lobe. * Associated lymphadenopathy within the right neck. ACR TI-RADS RECOMMENDATIONS: * TR1 (0 point) and TR 2 (2 points): No FNA or follow up * TR3 (3 points): FNA if at least 2.5 cm maximum dimension. Otherwise, perform ultrasound follow up in 1, 3 and 5 years if at least 1.5 cm maximum dimension. * TR4 (4-6 points): FNA if at least 1.5 cm maximum dimension. Otherwise, perform ultrasound follow up in 1, 2, 3 and 5 years if at least 1 cm maximum dimension. * TR5 (more than or equal to 7 points): FNA if at least 1 cm in maximum dimension. Otherwise, perform ultrasound follow up every year for 5 years if at least 0.5 cm in maximum dimension.
== END 2023-01-30 14:31 | disposition home or self-care (01) ==
LOC: HO.US 14:30
PROVIDERS: PCP Internal Medicine; Visit Provider Internal Medicine
DX: E04.1 Nontoxic single thyroid nodule (principal)
CPT/HCPCS: 76536

== ENCOUNTER 2023-02-10 09:52 | Outpatient (REF) | payer MEDICAID, SELFPAY ==
--- NOTE | ~2023-02-10 | US_ITS ---
EXAMINATION: Ultrasound-guided thyroid biopsy CLINICAL INFORMATION: Thyroid nodule COMPARISON: Previous thyroid ultrasound 01/30/[address] of the soft tissues of the neck December 2022 TECHNIQUE: Procedure and risks and benefits including bleeding and infection were discussed with the patient through an family educator and informed consent was obtained. The right neck was prepped and draped in the usual sterile fashion. The skin and soft tissues were anesthetized percent lidocaine plain. Using ultrasound guidance a 25-gauge needle, access to the nodule in the superior right lobe was obtained. 4 25-gauge FNA specimens were obtained. Patient experienced vagal reaction and was treated with Trendelenburg, smelling salt and cold cloth in between the third and fourth and after the fourth and final fine-needle aspiration. FINDINGS: There is a 1.4 x 1.3 x 1.3 cm calcified nodule in the superior right lobe that was targeted for fine-needle aspiration. US/US biopsy thyroid IMPRESSION: Ultrasound-guided right thyroid nodule fine-needle aspiration
[2023-02-10] MEDS: Lidocaine HCl 1 % MPF 5 ML VIAL SUBCUT (11:24)
== END 2023-02-10 09:53 | disposition home or self-care (01) ==
LOC: HO.US 09:52
PROVIDERS: PCP Internal Medicine; Visit Provider Internal Medicine
DX: E04.1 Nontoxic single thyroid nodule (principal)
CPT/HCPCS: 10005; 88172; 88173; 88177; 88305

== ENCOUNTER 2023-04-11 14:01 | Emergency (ER) | payer MEDICAID, SELFPAY ==
--- NOTE | ~2023-04-11 | CT_ITS ---
EXAMINATION: CT ANGIOGRAM OF THE CHEST WITH AND WITHOUT CONTRAST (CT PULMONARY ANGIOGRAM FOR PE) CLINICAL INFORMATION: Reason for Exam SOB post op COMPARISON: None available. TECHNIQUE: Prior to contrast administration, noncontrast localization images were obtained. Subsequently, multidetector volumetric imaging was performed from the thoracic inlet to below the diaphragms following the administration of 65 mL Omnipaque 350 intravenous contrast. No contrast reaction reported Sagittal, coronal, and MIP oblique sagittal reformatted images were obtained on the CT workstation, uploaded to PACS, and reviewed. This CT examination was performed using dose optimization techniques as appropriate, variously including the following: *Automated exposure control *Adjustment of mA and/or kV according to patient size (this includes techniques or standardized protocols for targeted exams where dose is matched to indication/reason for exam; i.e. extremities or head) *Use of iterative reconstruction technique Total exam dose-length product 306 mGy-cm FINDINGS: QUALITY OF STUDY/CONTRAST BOLUS: Satisfactory. PULMONARY ARTERIES: No pulmonary emboli. THORACIC AORTA: No aneurysm. LUNG: There is right lower lobe consolidation with air bronchograms most likely due to atelectasis or aspiration pneumonia.. Central airways are patent PLEURA: No pleural effusion or pneumothorax. MEDIASTINUM: Normal heart size. No pericardial effusion. No hilar or mediastinal lymphadenopathy. No evidence of septal bowing or right heart strain. CORONARY ARTERY CALCIFICATION: None visualized on this study. CHEST WALL/AXILLA: No axillary or internal mammary lymphadenopathy. OSSEOUS STRUCTURES: No acute or suspicious osseous abnormality. UPPER ABDOMEN: Unremarkable. No reflux of contrast into the hepatic veins to suggest elevated right heart pressures. CT/CT angio chest PE protocol IMPRESSION: 1. No evidence of pulmonary embolism. 2. Right lower lobe consolidation with air bronchograms most likely due to atelectasis or aspiration pneumonia. VTE: negative.
[2023-04-11 14:11] VITALS: BP 183/92; PULSE 74; RESP 18; TEMP 36.6; O2SAT 98; BMI 27.0
--- NOTE | 2023-04-11 14:11 | ED.GENADULT ---
HPI - General Adult General Chief complaint: Upper Respiratory Symptoms Stated complaint: high bp Time Seen by Provider: 04/11/23 15:07 Source: patient Mode of arrival: ambulatory Limitations: no limitations History of Present Illness HPI narrative: Patient is a 62 year old female with a history of thyroid cancer presents today with shortness of breath since Friday. Patient reports she had surgery on her thyroid on Friday for malignancy. Patient is not on blood thinners and denies history of blood clots. Denies chest pain, nausea, vomiting, fevers chills, headache, vision changes. Thyroid surgery done at [facility]. Related Data Home Medications Medication Instructions Recorded Confirmed omeprazole 20 mg capsule,delayed mg PO 05/25/20 01/08/23 release B-complex with vitamin C 1 tab PO DAILY 07/10/21 01/08/23 cetirizine 10 mg tablet 10 mg PO DAILY 07/10/21 01/08/23 finasteride 5 mg tablet 5 mg PO DAILY 07/10/21 01/08/23 cholecalciferol (vitamin D3) 25 25 mcg PO DAILY 11/23/21 01/08/23 mcg (1,000 unit) tablet Previous Rx's Medication Instructions Recorded albuterol sulfate 90 mcg/actuation 2 inh inhalation Q4-6H PRN 04/11/23 breath activated powder inhaler shortness of breath or wheezing #1 ea amoxicillin 875 mg-potassium 1 tab PO BID 10 days #20 tabs 04/11/23 clavulanate 125 mg tablet prednisone 20 mg tablet 40 mg PO DAILY 5 days #10 tabs 04/11/23 Allergies Allergy/AdvReac Type Severity Reaction Status Date / Time acetaminophen [ACETAMINOPHEN] Allergy Intermediate Shows Verified 04/11/23 14:11 Hepitis when takes too much oxycodone [OXYCODONE] Allergy Intermediate GI UPSET Verified 04/11/23 14:11 Review of Systems Review of Systems: Constitutional : No Weight loss, No Fever, No Chills, No Fatigue, No Malaise ENT/Mouth : No sore throat, No Rhinorrhea Eyes: No Eye Pain, No Swelling, No Redness Cardiovascular : No Chest Pain, + SOB, No Dyspnea on Exertion, No Orthopnea, No Edema, No Palpitations Respiratory : +shortness of breath, No Cough, No Sputum, No Wheezing Gastrointestinal : No Nausea, No Vomiting, No Diarrhea, No Constipation, No abdominal Pain, No Hematochezia, No Melena Genitourinary : No Dysuria, No Urinary Frequency, No Hematuria, Musculoskeletal : No joint pain, No Myalgias, No Joint Swelling Skin : No Skin Lesions, No rash Neuro : No Weakness, No Numbness, No Dizziness, No Headache Psych : No Anxiety/Panic, No Depression All other systems reviewed and are negative Yes all other systems are reviewed and are negative [facility] Past Medical History Attestation statement: The following information was validated with the patient. Source: old records reviewed and nursing notes reviewed Medical History Elevated liver enzymes Family history of breast cancer Gastroesophageal reflux disease Hemorrhoids with complication Steatosis Surgical History History of hysterectomy Hx of colonoscopy Hx of endoscopy Family History Family History Father Hypercholesterolemia Mother Hypertension Osteoporosis Arthritis Social History Social History Household Members Other:: lives with father Alcohol intake: former Patient Tobacco Use Status: Never used Tobacco Smoked in Last 30 Days: No Use of substances other than those prescribed or required for medical reasons: No Advance Directives: No Current occupational status: employed 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 Oriented X3.? No acute distress.? Head: Normocephalic, atraumatic, no step-offs or deformities Eyes: Pupils equal, round and reactive to light.? Neck: Normal inspection.? Neck supple.? CVS: Normal heart rate and rhythm.? Pulses normal.? Respiratory: No respiratory distress.? Breath sounds normal.? Abdomen: Soft and nontender.? Skin: Skin warm and dry.? Normal skin color.? Normal skin turgor.? Extremities: No lower extremity edema.? No calf ttp. 5/5 strength to bilateral upper and lower extremities Neuro: Oriented X 3.? No motor deficit.? No sensory deficit. CN 2-12 intact Course Course Course Narrative: RME performed by Dominique Seals PA-C. Patient is a 62 year old assigned female at presenting to the emergency department with SOB after having a thyroid surgery. Labs ordered. Patient placed back in the waiting room pending room availability and results. Reevaluation(s) Reevaluation #1: Patient's CBC appears to be around patient's baseline no acute findings. Chemistry unremarkable. Slightly elevated transaminases however around patient's baseline. Troponin negative. EKG nonischemic. CTA with no evidence of PE, right lower lobe consolidation with air bronchograms most likely due to aspiration pneumonia. Patient refusing further blood work, and admission, she would like to go home she states she does not would be poked or in the hospital anymore. I went over AMA paperwork with her. She verbalizes understanding. Will discharge home on Augmentin, prednisone, albuterol inhaler. Educated patient on diagnosis and treatment plan, answered all question, patient verbalizes understanding. At this time patient will be discharged home against medical advice, advised to return with new or worsening symptoms. Educated on worrisome signs and symptoms and when to return. Time: 17:48 Medications Administered Discontinued Medications Generic Name Dose Route Start Last Admin Trade Name Freq PRN Reason Stop Dose Admin Iohexol 100 ml 04/11/23 15:43 04/11/23 15:43 Iohexol 350 Mg/Ml 100 Ml Infus..Btl IV 04/11/23 15:44 65 ml ONCE ONE Administration Morphine Sulfate 4 mg 04/11/23 15:26 04/11/23 16:00 Morphine Sulfate 4 Mg/Ml Cartridge IVPUSH 04/11/23 15:27 Not Given ONCE ONE Protocol Medical Decision Making Medical Decision Making [facility] Narrative: 15:15 62 year old female with shortness of breath after thyroid surgery on Friday. Exam benign. Concern for pulmonary embolism given recent surgery and history of malignancy. Other differentials include viral illness, pneumonia. No signs of pneumothorax, flail chest, CHF. Unlikely ACS. Plan: labs, imaging Differential Diagnosis Differential Diagnoses: The differential diagnosis associated with the presentation includes Concern for pulmonary embolism given recent surgery and history of malignancy. Other differentials include viral illness, pneumonia. No signs of pneumothorax, flail chest, CHF. Unlikely ACS. Admission/Observation Consideration of admission/observation: Escalation of care including admission/observation considered Unlikely Lab Data MDM Lab Attestation statement: I reviewed the patient's lab results. 04/11/23 14:33 04/11/23 14:33 Labs: Lab Results 04/11/23 04/11/23 04/11/23 Range/Units 14:33 14:33 14:33 WBC 5.8 (4.8-10.8) X10*3/uL RBC 4.45 (4.20-5.50) X10*6/uL Hgb 13.3 (12.0-16.0) g/dl Hct 37.6 (37.0-47.0) % MCV 84.5 (80.0-98.0) fL MCH 29.9 (27.0-33.0) pg MCHC 35.4 H (31.0-35.0) g/dl RDW 11.6 (11.0-16.0) % Plt Count 272 (160-400) X10*3/uL MPV 8.4 L (9.4-12.3) fL Immature Gran % (Auto) 0.5 H (0.0-0.4) % Neut % (Auto) 55.1 (45-73) % Lymph % (Auto) 33.3 (20-40) % [place] % (Auto) 7.7 (2-11) % Eos % (Auto) 3.1 (0-4) % Baso % (Auto) 0.3 (0-2) % Lymph # (Auto) 1.9 (1.2-4.9) X10*3/uL [place] # (Auto) 0.5 (0.1-1.2) X10*3/uL Eos # (Auto) 0.2 (0.0-0.4) X10*3/uL Baso # (Auto) 0.0 (0.0-0.2) X10*3/uL Abs Immat Gran (auto) 0.03 (0.00-0.03) X10*3/uL Absolute Neuts (auto) 3.2 (2.0-8.3) x10*3/uL Absolute Nucleated RBC 0.000 (0.0-0.012) X10*3/uL Nucleated RBC % (auto) 0.0 (0.0-0.2) /100WBC Sodium 143 (135-145) mmol/L Potassium 4.3 (3.3-5.1) mmol/L Chloride 106 (96-108) mmol/L Carbon Dioxide 29 (22-29) mmol/L Anion Gap 12 (12-20) BUN 15 (9-16) mg/dL Creatinine 0.81 (0.5-1.4) mg/dL Estim Creat Clear Calc 66.2 Estimated GFR > 60 Random Glucose 113 (60-115) mg/dL Calcium 9.9 D (8.4-10.2) mg/dL Magnesium 2.3 (1.6-2.6) mg/dL Total Bilirubin 0.5 (0.0-1.0) mg/dL AST 35 H (5-31) U/L ALT 46 H (0-31) U/L Alkaline Phosphatase 92 (39-117) U/L Troponin I High Sens < 2.7 (<3.5-17.0) ng/L Total Protein 7.3 (6.5-8.0) g/dL Albumin 4.2 (3.5-5.0) g/dL COVID-19 (CARLA) (Negative) COVID-19 Clin Com 04/11/23 Range/Units 14:33 WBC (4.8-10.8) X10*3/uL RBC (4.20-5.50) X10*6/uL Hgb (12.0-16.0) g/dl Hct (37.0-47.0) % MCV (80.0-98.0) fL MCH (27.0-33.0) pg MCHC (31.0-35.0) g/dl RDW (11.0-16.0) % Plt Count (160-400) X10*3/uL MPV (9.4-12.3) fL Immature Gran % (Auto) (0.0-0.4) % Neut % (Auto) (45-73) % Lymph % (Auto) (20-40) % [place] % (Auto) (2-11) % Eos % (Auto) (0-4) % Baso % (Auto) (0-2) % Lymph # (Auto) (1.2-4.9) X10*3/uL [place] # (Auto) (0.1-1.2) X10*3/uL Eos # (Auto) (0.0-0.4) X10*3/uL Baso # (Auto) (0.0-0.2) X10*3/uL Abs Immat Gran (auto) (0.00-0.03) X10*3/uL Absolute Neuts (auto) (2.0-8.3) x10*3/uL Absolute Nucleated RBC (0.0-0.012) X10*3/uL Nucleated RBC % (auto) (0.0-0.2) /100WBC Sodium (135-145) mmol/L Potassium (3.3-5.1) mmol/L Chloride (96-108) mmol/L Carbon Dioxide (22-29) mmol/L Anion Gap (12-20) BUN (9-16) mg/dL Creatinine (0.5-1.4) mg/dL Estim Creat Clear Calc Estimated GFR Random Glucose (60-115) mg/dL Calcium (8.4-10.2) mg/dL Magnesium (1.6-2.6) mg/dL Total Bilirubin (0.0-1.0) mg/dL AST (5-31) U/L ALT (0-31) U/L Alkaline Phosphatase (39-117) U/L Troponin I High Sens (<3.5-17.0) ng/L Total Protein (6.5-8.0) g/dL Albumin (3.5-5.0) g/dL COVID-19 (CARLA) Negative (Negative) COVID-19 Clin Com See Note Independent Interpretation I performed an independent interpretation of an: CT Scan (CT/CT angio chest PE protocol IMPRESSION: 1. No evidence of pulmonary embolism. 2. Right lower lobe consolidation with air bronchograms most likely due to atelectasis or aspiration pneumonia. VTE: negative. ) Radiology Impression Discussion of test interpretation with radiology: I have reviewed the radiologist's reading. Core Measures AMI core measures followed: Yes Measure exclusions: not indicated Discharge Plan Discharge Clinical Impression: Aspiration pneumonia, Left against medical advice Patient Disposition: Left Against Medical Advice Instructions: Aspiration Pneumonia (DC), Against Medical Advice (ED) Additional Instructions: Take your medications as prescribed. If you were prescribed antibiotics today, it is important that you take your medication to their entirety, do not skip any doses, do not finish them early. Follow-up with your primary care provider this week. Return to the emergency department with new or worsening symptoms. Such as fevers, chills, chest pain, shortness of breath, nausea, vomiting, dizziness, headache, vision changes, lethargy In case of emergency call 911 You left against medical advice. Noted to have aspiration pneumonia. Please return with new or worsening symptoms. CT/CT angio chest PE protocol IMPRESSION: 1.? No evidence of pulmonary embolism. 2.? Right lower lobe consolidation with air bronchograms most likely due to atelectasis or aspiration pneumonia. VTE: negative. Prescriptions: New amoxicillin-pot clavulanate 875-125 mg tablet 1 tab PO BID 10 Days Qty: 20 0RF prednisone 20 mg tablet 40 mg PO DAILY 5 Days Qty: 10 0RF albuterol sulfate 90 mcg/actuation aerosol powdr breath activated 2 inh inhalation Q4-6H PRN (Reason: shortness of breath or wheezing) Qty: 1 0RF No Action finasteride 5 mg tablet 5 mg PO DAILY cetirizine 10 mg tablet 10 mg PO DAILY B-complex with vitamin C Tablet 1 tab PO DAILY omeprazole 20 mg capsule,delayed release(DR/EC) PO cholecalciferol (vitamin D3) 25 mcg (1,000 unit) tablet 25 mcg PO DAILY Referrals: Kevyn Hdz MD [Primary Care Provider] - 2 days Stand Alone Forms: Against Medical Advice
--- NOTE | 2023-04-11 14:12 | ECG_ITS ---
Test Reason : SOB Blood Pressure : / mmHG Vent. Rate : 060 BPM Atrial Rate : 060 BPM P-R Int : 162 ms QRS Dur : 074 ms QT Int : 398 ms P-R-T Axes : 049 -02 025 degrees QTc Int : 398 ms Normal sinus rhythm Normal ECG When compared with ECG of 22-MAR-2020 04:19, Borderline criteria for Inferior infarct are no longer Present Referred By: Dominique Seals Electronically Signed By:DEONDRE MORE
[2023-04-11 14:38] LABS: Basophils Percent Auto 0.3 % (0-2); Eosinophils Absolute Auto 0.2 X10*3/uL (0.0-0.4); Eosinophils Percent Auto 3.1 % (0-4); Hematocrit 37.6 % (37.0-47.0); Hemoglobin 13.3 g/dl (12.0-16.0); Imm Gran Abs Auto 0.03 X10*3/uL (0.00-0.03); Imm Gran Pct Auto 0.5 % (0.0-0.4); Lymphocytes Absolute Auto 1.9 X10*3/uL (1.2-4.9); Lymphocytes Percent Auto 33.3 % (20-40); MANUAL DIFF FLAG NO; Mean Corpuscular HGB Conc 35.4 g/dl (31.0-35.0); Mean Corpuscular Hemoglobin 29.9 pg (27.0-33.0); Mean Corpuscular Volume 84.5 fL (80.0-98.0); Mean Platelet Volume 8.4 fL (9.4-12.3); Monocytes Absolute Auto 0.5 X10*3/uL (0.1-1.2); Monocytes Percent Auto 7.7 % (2-11); Neutrophils Absolute Auto 3.2 x10*3/uL (2.0-8.3); Neutrophils Percent Auto 55.1 % (45-73); Platelet Count 272 X10*3/uL (160-400); Red Blood Count 4.45 X10*6/uL (4.20-5.50); Red Cell Distribution Width 11.6 % (11.0-16.0); White Blood Count 5.8 X10*3/uL (4.8-10.8)
[2023-04-11 14:57] LABS: Alanine Aminotransferase 46 U/L (0-31); Albumin Level 4.2 g/dL (3.5-5.0); Alkaline Phosphatase 92 U/L (39-117); Anion Gap 12 (12-20); Aspartate Amino Transferase 35 U/L (5-31); Bilirubin Total 0.5 mg/dL (0.0-1.0); Blood Urea Nitrogen 15 mg/dL (9-16); Calcium 9.9 mg/dL (8.4-10.2); Carbon Dioxide 29 mmol/L (22-29); Chloride 106 mmol/L (96-108); Creatinine Clr Calc Pharmacy 66.2; Estimated Glomerular Filt Rate > 60; Glucose Random 113 mg/dL (60-115); Magnesium 2.3 mg/dL (1.6-2.6); Potassium 4.3 mmol/L (3.3-5.1); Sodium 143 mmol/L (135-145); Total Protein 7.3 g/dL (6.5-8.0)
[2023-04-11 14:58] LABS: COVID-19 Test Negative (Negative); IDNOW Serial# 55D5AD1C
[2023-04-11 15:04] VITALS: BP 158/86; PULSE 61; RESP 18; TEMP 37.1; O2SAT 95; O2SAT 96
[2023-04-11 15:04] LABS: Troponin-I High Sensitivity < 2.7 ng/L (<3.5-17.0)
--- NOTE | 2023-04-11 15:07 | PC.NURSE ---
Patient arrived from home with complaints os sob. Reports had surgery to remove thyroid cancer about a week ago. States sob started around the same time. Denies pain at site. Incision healing well. Reports tube was removed yesterday. VSS, nsr on monitor.
[2023-04-11] MEDS: iohexoL 350 MG/ML 100 ML INFUS..BTL IV (15:43)
--- NOTE | 2023-04-11 16:00 | PC.NURSE ---
Patient declined morphine stating she doesnt have any pain
[2023-04-11 18:01] LABS: Lactic Acid 1.3 mmol/L (0.5-2.0)
== END 2023-04-11 18:04 | disposition left against medical advice (07) ==
PROVIDERS: Physician Assistant; Physician Assistant Medical; Emergency Provider Emergency Medicine Emergency Medical Services; PCP Internal Medicine
DX: J18.8 Other pneumonia, unspecified organism (principal); R06.02 Shortness of breath; C73 Malignant neoplasm of thyroid gland; Z20.822 Contact with and (suspected) exposure to COVID-19; I10 Essential (primary) hypertension; Z79.899 Other long term (current) drug therapy
CPT/HCPCS: 36415; 71275; 80053; 83605; 83735; 84484; 85025; 87635; 93005; 99284; 99285; Q9967

== ENCOUNTER 2023-05-02 08:56 | Outpatient (AMB) | payer MEDICAID, SELFPAY ==
--- NOTE | 2023-05-02 08:57 | A.OFFVIS_ITS ---
Intake Vital Signs 05/02/23 09:05 Height 5 ft 2 in Weight 143 lb 4.807 oz BMI 26.2 BP 121/79 Blood Pressure Location Lt brachial Position Sitting Pulse 88 Intake Visit Reasons: 6 Month Follow Up Intake Note: Omayra presents in the office as a 6 month follow up. CC: She states that she is not having any concerns today. Allergies acetaminophen [ACETAMINOPHEN] Allergy (Intermediate, Verified 05/02/23 09:05) Shows Hepitis when takes too much oxycodone [OXYCODONE] Allergy (Intermediate, Verified 05/02/23 09:05) GI UPSET HPI 6 Month Follow Up HPI Details 62 yr old f here for f/u ? RECAP: ? she was having epigastric pain ? EGD 03/2019--with chronic gastritis, no h pylori, relfux esophagitis on path ? on omeprazole, ? lots of stess in home life ? overall feels 70% improved ? no dysphagia, epigastric pain gone ? seeing urology for renal stones ? no more blood in stool but has abn bowel habit, going several times to toilet, 4-5 times going on for a while, no tenesmus ? colonoscopy--08/2019-- sessile polyp right colon--tubular adenoma, moderate hemorrhoids, tortuous colon ? rept 1-2 yrs due to prep ? she had CT scan in ED? after going for abdo pain, dialted appendix noted, ?liver hemangioma, steatosis ? labs with mild raised alt,ast, nml cbc--neg AMA, JOVANNY, rept labs 06/2021-- nml LFT ? MRI 04/2020-- diffuse steatosis, hemangioma, no gallstones, renal cysts incl hemorrhagic I had arranged Mr defocgraphy but she was unable to do it US 01/2021-- renal calculi, diffuse steatosis, Colonoscopy: 2021-- Polyp lesion removed from cecum and DC, path with adenoma, no dysplasia, small internal hemorrhoids US 11/2022-- midl steatosis, elastography 1.35 INTERIM: She has no issues today she is taking omeprazole at night and it works good stools are normal, no blood in stools she denies abdominal pain appetite is good she is not bothered by hemorrhoids now LFT: 04/16-- mild AST, ALT elevatin she is recovering from thyroid cancer and thyroidectomy done 03/2023 ? EXAM: GENERAL: The patient is well developed and nontoxic. VITAL SIGNS:see workflow HEENT: Nonicteric sclerae, PERRLA, EOMI. Oropharynx clear. Moist mucous membranes. Conjunctivae appear well perfused. No thyroid mass.--scar over lower neck noted CHEST: Chest wall is nontender. HEART: Regular rate and rhythm without murmurs. LUNGS: Clear to auscultation bilaterally. ABDOMEN: Soft, positive bowel sounds, nontender, no organomegaly.no flank tenderness SKIN: No rash, no excessive bruising, petechiae, or purpura. NEUROLOGIC: Cranial nerves II-XII intact without motor/sensory deficit. Assessments ? 1. AVALOS, Mild 2. post prandial urgency--controlled ?3. GERD-controlled 4. hemorrhoids, not active at this time PLAN: 1/ recheck LFT q6-12 months, US liver 2/cont with PPi 3/ repeat colonoscopy 2024 [facility] Medical History (Updated 05/02/23 @ 09:25 by Ondina Hooker MD) Family history of breast cancer Hemorrhoids with complication Gastroesophageal reflux disease Steatosis Elevated liver enzymes Surgical History (Updated 05/02/23 @ 09:06 by MIKAYLA Matias) Hx of thyroidectomy Hx of endoscopy Hx of colonoscopy History of hysterectomy Family History Father Hypercholesterolemia Mother Hypertension Osteoporosis Arthritis Social History Household Members Other:: lives with father Alcohol intake: former Patient Tobacco Use Status: Never used Tobacco Current occupational status: employed 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
[2023-05-02 09:05] VITALS: BP 121/79; PULSE 88; BMI 26.2
== END 2023-05-02 09:27 | disposition home or self-care (01) ==
PROVIDERS: Visit Provider Internal Medicine Gastroenterology
DX: R74.8 Abnormal levels of other serum enzymes (principal); E78.89 Other lipoprotein metabolism disorders; K63.5 Polyp of colon
CPT/HCPCS: 99214

== ENCOUNTER → 2023-05-02 08:56 | Outpatient (BNVA) | payer MEDICAID, SELFPAY | PROVIDERS: Visit Provider Internal Medicine Gastroenterology | DX: R74.8 Abnormal levels of other serum enzymes (principal); E78.89 Other lipoprotein metabolism disorders; K63.5 Polyp of colon | CPT/HCPCS: 99212 ==

== ENCOUNTER 2023-05-02 09:42 | Outpatient (REF) | payer MEDICAID, SELFPAY ==
[2023-05-02 12:10] LABS: Alanine Aminotransferase 42 U/L (0-31); Albumin Level 4.2 g/dL (3.5-5.0); Alkaline Phosphatase 91 U/L (39-117); Anion Gap 11 (12-20); Aspartate Amino Transferase 31 U/L (5-31); Bilirubin Direct 0.3 mg/dL (0.0-0.5); Bilirubin Total 0.8 mg/dL (0.0-1.0); Blood Urea Nitrogen 13 mg/dL (9-16); Calcium 9.6 mg/dL (8.4-10.2); Carbon Dioxide 28 mmol/L (22-29); Chloride 109 mmol/L (96-108); Estimated Glomerular Filt Rate > 60; Glucose Random 149 mg/dL (60-115); Potassium 4.4 mmol/L (3.3-5.1); Sodium 144 mmol/L (135-145); Total Protein 7.1 g/dL (6.5-8.0)
[2023-05-04 12:39] LABS: Calcium (PTHI) 9.3 mg/dL (8.6-10.4); PTHI 58 pg/mL (16-77)
== END 2023-05-02 09:43 | disposition home or self-care (01) ==
LOC: HO.HHCL 09:42
PROVIDERS: Visit Provider Internal Medicine
DX: C73 Malignant neoplasm of thyroid gland (principal); E89.0 Postprocedural hypothyroidism
CPT/HCPCS: 36415; 80048; 80076; 82330; 83970; 84443

== ENCOUNTER 2023-07-04 09:59 | Outpatient (REF) | payer MEDICAID, SELFPAY ==
--- NOTE | ~2023-07-04 | MM_ITS ---
EXAMINATION: MM SCREENING DIGITAL BREAST TOMOSYNTHESIS, BILATERAL CLINICAL INFORMATION: Screening. Asymptomatic. COMPARISON: Mammography: 07/01/2022, 06/25/2021, 10/20/2018, 06/20/2017, 06/17/2016 TECHNIQUE: Digital breast tomosynthesis is performed in both the craniocaudal and mediolateral oblique views along with computer-aided detection (CAD). Synthesized 2D images are generated from the tomosynthesis. FINDINGS: The breasts are heterogeneously dense, which may obscure small masses (ACR BI-RADS breast composition Category c). There are no suspicious masses, suspicious grouped calcifications, or areas of architectural distortion in either breast. The parenchymal pattern is stable from prior exams. MM/MM tomosynthesis screening BI IMPRESSION: No mammographic evidence of malignancy. ASSESSMENT: BI-RADS BI-RADS 1 - Negative RECOMMENDATION: Routine annual mammography screening. 1 year F/U This examination should not preclude the clinical evaluation of a suspicious palpable abnormality. This patient's information was entered into a reminder system with a target due date for their next mammogram.
== END 2023-07-04 10:00 | disposition home or self-care (01) ==
LOC: HO.MAMMO 09:59
PROVIDERS: PCP Internal Medicine; Visit Provider Internal Medicine
DX: Z12.31 Encounter for screening mammogram for malignant neoplasm of breast (principal)
CPT/HCPCS: 77063; 77067

== ENCOUNTER → 2023-07-04 10:00 | Outpatient (BNV) | payer MEDICAID, SELFPAY | PROVIDERS: PCP Internal Medicine; Visit Provider Radiology Diagnostic Radiology | DX: Z12.31 Encounter for screening mammogram for malignant neoplasm of breast (principal) | CPT/HCPCS: 77063; 77067 ==

== ENCOUNTER 2023-07-08 10:28 | Outpatient (REF) | payer MEDICAID, SELFPAY ==
[2023-07-08 11:29] LABS: MANUAL DIFF FLAG NO
[2023-07-08 11:49] LABS: Basophils Percent Auto 0.5 % (0-2); Eosinophils Absolute Auto 0.1 X10*3/uL (0.0-0.4); Eosinophils Percent Auto 3.4 % (0-4); Hematocrit 38.4 % (37.0-47.0); Hemoglobin 13.3 g/dl (12.0-16.0); Lymphocytes Absolute Auto 1.9 X10*3/uL (1.2-4.9); Mean Corpuscular HGB Conc 34.6 g/dl (31.0-35.0); Mean Corpuscular Hemoglobin 29.6 pg (27.0-33.0); Mean Corpuscular Volume 85.5 fL (80.0-98.0); Mean Platelet Volume 8.8 fL (9.4-12.3); Monocytes Absolute Auto 0.4 X10*3/uL (0.1-1.2); Monocytes Percent Auto 8.7 % (2-11); Neutrophils Absolute Auto 1.7 x10*3/uL (2.0-8.3); Neutrophils Percent Auto 41.4 % (45-73); Platelet Count 277 X10*3/uL (160-400); Red Blood Count 4.49 X10*6/uL (4.20-5.50); Red Cell Distribution Width 11.7 % (11.0-16.0); White Blood Count 4.1 X10*3/uL (4.8-10.8)
[2023-07-08 12:00] LABS: Alanine Aminotransferase 102 U/L (0-31); Albumin Level 4.2 g/dL (3.5-5.0); Alkaline Phosphatase 92 U/L (39-117); Anion Gap 14 (12-20); Aspartate Amino Transferase 65 U/L (5-31); Bilirubin Direct 0.2 mg/dL (0.0-0.5); Bilirubin Total 0.9 mg/dL (0.0-1.0); Blood Urea Nitrogen 14 mg/dL (9-16); Calcium 9.6 mg/dL (8.4-10.2); Carbon Dioxide 28 mmol/L (22-29); Chloride 108 mmol/L (96-108); Estimated Glomerular Filt Rate > 60; Glucose Random 122 mg/dL (60-115); Potassium 3.8 mmol/L (3.3-5.1); Sodium 146 mmol/L (135-145)
[2023-07-08 12:18] LABS: TSH reflex Free T4 < 0.01 uIU/mL (0.32-4.0)
[2023-07-08 13:15] LABS: Free T4 (Free Thyroxine) 1.48 ng/dL (0.71-1.85)
[2023-07-09 16:28] LABS: Calcium (PTHI) 9.4 mg/dL (8.6-10.4); PTHI 42 pg/mL (16-77)
== END 2023-07-08 10:29 | disposition home or self-care (01) ==
LOC: HO.HHCL 10:28
PROVIDERS: Visit Provider Internal Medicine
DX: C73 Malignant neoplasm of thyroid gland (principal)
CPT/HCPCS: 36415; 80048; 80076; 83970; 84439; 84443; 85025

== ENCOUNTER 2023-07-14 13:18 | Outpatient (REF) | payer MEDICAID, SELFPAY ==
[2023-07-15 04:12] LABS: HBS Num1 22.93 mIU/mL (0-7.99); HBsAGNum1 0.31 S/CO (0.00-0.99); Hepatitis A Antibody IgM 0.27 Index (0-0.79); Hepatitis B Core Antibody Nonreactive (Nonreactive); Hepatitis B Surface Antigen Negative (Negative); ~HepC Num1 0.09 S/CO (0.00-0.79); ~Hepatitis A Antibody IgM Nonreactive (Nonreactive); ~Hepatitis B Surface Antibody REACTIVE (Nonreactive); ~Hepatitis C Antibody Nonreactive (Nonreactive)
== END 2023-07-14 13:19 | disposition home or self-care (01) ==
LOC: HO.HHCL 13:18
PROVIDERS: Visit Provider Internal Medicine
DX: R79.89 Other specified abnormal findings of blood chemistry (principal)
CPT/HCPCS: 36415; 86704; 86706; 86709; 86803; 87340

== ENCOUNTER 2023-08-14 09:03 | Outpatient (REF) | payer MEDICAID, SELFPAY ==
--- NOTE | ~2023-08-14 | US_ITS ---
EXAMINATION: US ABDOMEN COMPLETE CLINICAL INFORMATION: Elevated LFTs. COMPARISON: Ultrasound abdomen limited with elastography 12/02/2022 and 02/05/2021. CT abdomen and pelvis 08/09/2022. MRI abdomen 04/27/2020. TECHNIQUE: Real-time imaging of the abdominal viscera. FINDINGS: PANCREAS: Normal head and body, the tail is obscured by bowel gas. ABDOMINAL AORTA: The proximal, mid, and distal segments are normal in caliber. INFERIOR VENA CAVA: Visualized portions are normal. LIVER: The liver is normal in size. The liver contour is normal. There is diffuse increased liver parenchymal echogenicity, consistent with hepatic steatosis. No focal hepatic lesion. There is no intrahepatic biliary duct dilatation seen. GALLBLADDER: Normal. The gallbladder is physiologically distended without evidence of stones, sludge, polyps, wall thickening or pericholecystic fluid. COMMON BILE DUCT: Normal in caliber measuring 0.3 cm in diameter. RIGHT KIDNEY: No hydronephrosis or renal calculi. The kidney measures 10.2 cm in maximum dimension. 0.4 x 0.3 x 0.2 cm simple cyst is seen in the upper pole. No imaging follow-up is recommended. LEFT KIDNEY: Normal. No hydronephrosis. No renal calculi or focal parenchymal lesions. The kidney measures 10.2 cm in maximum dimension. SPLEEN: Normal. The spleen measures 10.6 cm in maximum dimension. FREE FLUID: None. US/US abdomen complete IMPRESSION: Hepatic steatosis.
== END 2023-08-14 09:04 | disposition home or self-care (01) ==
LOC: HO.US 09:03
PROVIDERS: PCP Internal Medicine; Visit Provider Internal Medicine
DX: R79.89 Other specified abnormal findings of blood chemistry (principal)
CPT/HCPCS: 76700

== ENCOUNTER 2023-12-05 10:32 | Outpatient (AMB) | payer MEDICAID, SELFPAY ==
--- NOTE | 2023-12-05 10:37 | MHC.OFFVIS ---
Intake Vital Signs 12/05/23 10:39 Height 5 ft 2 in Weight 145 lb 8.081 oz BMI 26.6 BP 124/77 Blood Pressure Location Lt brachial Position Sitting Pulse 66 Intake Visit Reasons: 7 month f/u Intake Note: Omayra presents in the office as a 7 month follow up. CC: She wants to know when she is due for a colonoscopy. she knows it is every 3 years not sure if it is this year or next year. Allergies acetaminophen [ACETAMINOPHEN] Allergy (Intermediate, Verified 12/05/23 10:39) Shows Hepitis when takes too much oxycodone [OXYCODONE] Allergy (Intermediate, Verified 12/05/23 10:39) GI UPSET HPI 7 month f/u HPI Details 63 yr old f w/ hx of thyroid ca and thyroidectomy here for f/u ? RECAP: ? she was having epigastric pain ? EGD 03/2019--with chronic gastritis, no h pylori, relfux esophagitis on path ? on omeprazole, ? lots of stess in home life ? overall feels 70% improved ? no dysphagia, epigastric pain gone ? seeing urology for renal stones ? no more blood in stool but has abn bowel habit, going several times to toilet, 4-5 times going on for a while, no tenesmus ? colonoscopy--08/2019-- sessile polyp right colon--tubular adenoma, moderate hemorrhoids, tortuous colon ? rept 1-2 yrs due to prep ? she had CT scan in ED? after going for abdo pain, dialted appendix noted, ?liver hemangioma, steatosis ? labs with mild raised alt,ast, nml cbc--neg AMA, JOVANNY, rept labs 06/2021-- nml LFT ? MRI 04/2020-- diffuse steatosis, hemangioma, no gallstones, renal cysts incl hemorrhagic I had arranged Mr defocgraphy but she was unable to do it US 01/2021-- renal calculi, diffuse steatosis, Colonoscopy: 2021-- Polyp lesion removed from cecum and DC, path with adenoma, no dysplasia, small internal hemorrhoids US 11/2022-- mild steatosis, elastography 1.35 INTERIM: she can still have post prandial urgency at times she has no nausea or vomiting no blood in stools she denies abdominal pain appetite is good ? EXAM: GENERAL: The patient is well developed and nontoxic. VITAL SIGNS:see workflow HEENT: Nonicteric sclerae, PERRLA, EOMI. Oropharynx clear. Moist mucous membranes. Conjunctivae appear well perfused. No thyroid mass.--scar over lower neck noted CHEST: Chest wall is nontender. HEART: Regular rate and rhythm without murmurs. LUNGS: Clear to auscultation bilaterally. ABDOMEN: Soft, positive bowel sounds, nontender, no organomegaly.no flank tenderness SKIN: No rash, no excessive bruising, petechiae, or purpura. NEUROLOGIC: Cranial nerves II-XII intact without motor/sensory deficit. Assessments ? 1. AVALOS, Mild 2. post prandial urgency--unable to take fiber supplement? ?3. GERD-controlled PLAN: 1/ recheck LFT now 2/cont with PPi 3/ repeat colonoscopy 2024 4/ advised try fiber gummies, and high fiber diet --can try low dose TCA PFSH Medical History Family history of breast cancer Hemorrhoids with complication Gastroesophageal reflux disease Steatosis Elevated liver enzymes Surgical History Hx of thyroidectomy Hx of endoscopy Hx of colonoscopy History of hysterectomy Family History Father Hypercholesterolemia Mother Hypertension Osteoporosis Arthritis Social History Household Members Other:: lives with father Alcohol intake: former Patient Tobacco Use Status: Never used Tobacco Current occupational status: employed 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 Physical Exam Vital Signs: Last Vital Signs Pulse 66 12/05/23 10:39 BP 124/77 12/05/23 10:39 BMI result Body Mass Index 26.6 Assessment & Plan Assessment & Plan (1) Elevated liver enzymes: Code(s): R74.8 - Abnormal levels of other serum enzymes Plan: 1/ recheck LFT now 2/cont with PPi 3/ repeat colonoscopy 2024 4/ advised try fiber gummies, and high fiber diet --can try low dose TCA (2) Steatosis: Code(s): E78.89 - Other lipoprotein metabolism disorders Plan: 1/ recheck LFT now 2/cont with PPi 3/ repeat colonoscopy 2024 4/ advised try fiber gummies, and high fiber diet --can try low dose TCA Orders: Orders Complete Blood Count Auto Diff Today E78.89 - Other lipoprotein metabolism disorders, R74.8 - Abnormal levels of other serum enzymes Comprehensive Met. Panel Today E78.89 - Other lipoprotein metabolism disorders, K75.81 - Nonalcoholic steatohepatitis (AVALOS), R74.8 - Abnormal levels of other serum enzymes Coding Level of Care Code Est Pt Level 3 (02341) Diagnoses Elevated liver enzymes R74.8 Steatosis E78.89
[2023-12-05 10:39] VITALS: BP 124/77; PULSE 66; BMI 26.6
== END 2023-12-05 11:14 | disposition home or self-care (01) ==
PROVIDERS: PCP Internal Medicine; Referring Provider Internal Medicine; Visit Provider Internal Medicine Gastroenterology
DX: R74.8 Abnormal levels of other serum enzymes (principal); E78.89 Other lipoprotein metabolism disorders
CPT/HCPCS: 99213

== ENCOUNTER → 2023-12-05 10:32 | Outpatient (BNVA) | payer MEDICAID, SELFPAY | PROVIDERS: PCP Internal Medicine; Visit Provider Internal Medicine Gastroenterology | DX: R74.8 Abnormal levels of other serum enzymes (principal); E78.89 Other lipoprotein metabolism disorders | CPT/HCPCS: 99212 ==

== ENCOUNTER 2025-02-21 10:07 | Outpatient (REF) | payer OTHER, SELFPAY ==
--- OUTSIDE RECORDS SUMMARY | 2025-02-21 10:46 | XMS_ITS | Clinical Summary ---
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 the absence of any injury. On exam there was full ROM, there was no redness, there was some tenderness over her right sternocleidomastoid region with firmness suggestive of deep lymphadenopathy. No nucal rigidity. Ear and mouth normal Initial work up included a CBC, LDH, Normal CT of soft tissues of the neck done 01/21/2023 but it was not read until 01/28/2023 CT showed: multiple pathologically enlarged heterogeneously enhancing right- sided cervical lymph nodes the majority of which are located within the level III. In addition to this finding there is a nodule within the right lobe of the thyroid gland that demonstrates some heterogeneous intralesional calcification measuring 1.3 cm in maximal transaxial dimension which may represent a potential source of metastatic zeeshan disease. There is no identifiable mucosal mass however a squamous cell carcinoma cannot be definitively excluded on the basis of this examination and correlation with nasolaryngoscopy is recommended to exclude this possibility. I discussed case with Radiologist Jameson Casarez I ordered a Thyroid U/S , this was done 01/30 showing a highly suspicious TR5 nodule right thyroid lobe with associated lymphadenopathy and U/S Guided biopsy done 02/12/2023 showed: Atypia of unknown significance. Afirma testing pending. Case discussed with Dr. Guevara Pathologist at [facility] who mentioned the testing could take from 1-3 weeks to come back We had placed a stat referral referral with ENT surgeon for nasolaryngoscopy and potential Lymph node biopsy IF Thyroid nodule biopsy was negative or inconclusive. ENT offices did not give us appointment until after results of testing back. I tried to speak to local ENT surgeons directly to discuss case with no success. I have asked our nerve specialist to inquire for appointment availability with ENT at [facility]. Follow up with me after ENT Will also refer [place] [facility] [place] & Plan (01/28/2023 8:53 AM EDT): Pt here for a follow up Previous visit came in with c/o right sided neck pain 4-5/10 x 7 months in the absence of any injury. On exam there was full ROM, there was no redness, there was some tenderness over her right sternocleidomastoid region with firmness suggestive of deep lymphadenopathy. No nucal rigidity. Ear and mouth normal CBC, LDH, Normal CT of soft tissues of the neck ordered Assessment & Plan (12/26/2022 10:00 AM EDT): Pt with c/o right sided neck pain 4-5/10 x 7 months in the absence of any injury. On exam there is full ROM, there is no redness, there is some tenderness over her right sternocleidomastoid region with firmness suggestive of deep lymphadenopathy. No nucal rigidity. Ear and mouth normal Plan: CBC, LDH, CT of soft tissues of the neck 4 week follow up Preventative health care 12/25/2022 Assessment & Plan (02/03/2025 2:31 PM EDT): Mammogram: 07/04/2023 Normal, will order repeat Pap Smear: s/p hysterectomy 2007 She has her ovaries Colonoscopy: 10/30/2021 Tubular adenoma 3 year follow up recommended (2024) Assessment & Plan (03/04/2024 10:28 AM EDT): Mammogram: 07/04/2023 Normal Pap Smear: s/p hysterectomy 2007 She has her ovaries Colonoscopy: 10/30/2021 Tubular adenoma 3 year follow up recommended (2024) Assessment & Plan (09/09/2023 10:16 AM EST): Mammogram: 07/04/2023 Normal Pap Smear: s/p hysterectomy 2007 She has her ovaries Colonoscopy: 10/30/2021 Tubular adenoma 3 year follow up recommended (2024) Assessment & Plan (12/26/2022 9:26 AM EDT): Mammogram: 07/01/2022 Normal Pap Smear: s/p hysterectomy 2007 She has her ovaries Colonoscopy: 10/30/2021 Tubular adenoma 3 year follow up recommended (2024) Steatosis of liver 08/09/2020 Assessment & Plan (12/25/2022 2:35 PM EDT): Under the care of GI, Recent LFTs 05/27/2022 Normal 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 ultimately determined to be a hemangioma; Tubular adenoma of colon 09/15/2019 Assessment & Plan (02/03/2025 2:30 PM EDT): Last colonoscopy done 10/30/2021 Dr Diaz showed polyps and hemorrhoids Needs a repeat in 3 Yrs (2024) per GI recommendations Referred back Assessment & Plan (12/26/2022 9:21 AM EDT): Last colonoscopy done 10/30/2021 showed polyps and hemorrhoids Needs a repeat in 3 Yrs (2024) per GI recommendations Impaired fasting glucose 11/10/2014 Assessment & Plan (02/03/2025 2:28 PM EDT): Glucose 2022 elevated Will repeat Assessment & Plan (12/25/2022 2:37 PM EDT): Glucose 05/27/2022 Normal Obstructive sleep apnea syndrome 08/08/2014 Assessment & Plan (11/18/2023 10:21 AM EDT): Pt here for a follow up She has CPAP but is nonadherent with it. Discussed the need to adhere to it Assessment & Plan (12/26/2022 9:21 AM EDT): Pt here for a follow up She has CPAP but is nonadherent with it. Discussed the need to adhere to it Kidney stone 05/24/2013 Dyslipidemia 06/16/2012 Assessment & Plan (02/03/2025 2:24 PM EDT): Patient elevated lipids. Most recent lipid profile from: Lab Results Component Value Date TRIG 92 01/17/2023 01/17/2023 shows a total cholesterol of: 236 triglycerides of: 92 HDL of: 59 and LDL of: 155 Currently not on any regimen. She used to be on Fenofibrate but not taking since November 2020 . Most recent LFT'S from: 07/18/2021 showed a GOT of: 22 and a GPT of: 22 Plan: Continue with diet and exercise, repeat Lipid profile advised to try to adhere to a low cholesterol diet, counseled and educated about diet and exercise, Patient encouraged to come up with a personal goal for weight loss. Assessment & Plan (06/15/2024 11:55 AM EDT): Patient elevated lipids. Most recent lipid profile from: 01/17/2023 shows a total cholesterol of: 236 triglycerides of: 92 HDL of: 59 and LDL of: 155 Currently not on any regimen. She used to be on Fenofibrate but not taking since November 2020 . Most recent LFT'S from: 07/18/2021 showed a GOT of: 22 and a GPT of: 22 Plan: Continue with diet and exercise, repeat Lipid profile advised to try to adhere to a low cholesterol diet, counseled and educated about diet and exercise, Patient encouraged to come up with a personal goal for weight loss. Assessment & Plan (01/28/2023 12:27 PM EDT): Patient elevated lipids. Most recent lipid profile from: 01/17/2023 shows a total cholesterol of: 236 triglycerides of: 92 HDL of: 59 and LDL of: 155 Currently not on any regimen. She used to be on Fenofibrate but not taking since November 2020 . Most recent LFT'S from: 07/18/2021 showed a GOT of: 22 and a GPT of: 22 Plan: Continue with diet and exercise advised to try to adhere to a low cholesterol diet, counseled and educated about diet and exercise, Patient encouraged to come up with a personal goal for weight loss. Assessment & Plan (12/26/2022 9:23 AM EDT): Patient elevated lipids. Most recent lipid profile from: 06/01/2021 shows a total cholesterol of: 248 triglycerides of: 143 HDL of: 62 and LDL of: 159 Currently not on any regimen. She used to be on Fenofibrate but not taking since November 2020 . Most recent LFT'S from: 07/18/2021 showed a GOT of: 22 and a GPT of: 22 Plan: For now will continue with current regimen. Repeat Lipid profile prior to next visit. advised to try to adhere to a low cholesterol diet, counseled and educated about diet and exercise, Patient encouraged to come up with a personal goal for weight loss. Resolved Problems Problem Noted Date Diagnosed Date Resolved Date Thyroid nodule 02/18/2023 02/03/2025 Assessment & Plan (02/21/2023 3:21 PM EDT): Thyroid U/S , this was done 01/30 showing a highly suspicious TR5 nodule right thyroid lobe with associated lymphadenopathy and U/S Guided biopsy done 02/12/2023 showed: Atypia of unknown significance. Afirma testing pending. Case discussed with Dr. Guevara Pathologist at [facility] who mentioned the testing could take from 1-3 weeks to come back We had placed a stat referral referral with ENT surgeon for nasolaryngoscopy and potential Lymph node biopsy IF Thyroid nodule biopsy was negative or inconclusive. ENT offices did not give us appointment until after results of testing back. We have tried to speak to ENT surgeons directly to discuss case with no success. I have asked our nerve specialist to inquire for appointment availability at [facility]. Follow up with me after ENT Will also refer to [place] [facility] [place] [facility] does not have availability Lymphadenopathy of right cervical region 12/26/2022 09/09/2023 Assessment & Plan (02/21/2023 3:21 PM EDT): Pt here for a follow up Back in December 26 patient came in with c/o right sided neck pain in the absence of any injury. Today she describes the discomfort as waxing and wayning On exam she had full ROM, there was no redness, there was some tenderness over her right sternocleidomastoid region with firmness suggestive of deep lymphadenopathy. No nucal rigidity. Ear and mouth normal CBC, LDH were Normal CT of soft tissues of the neck done 01/21/2023 but it was not read until 01/28/2023 CT showed: multiple pathologically enlarged heterogeneously enhancing right- sided cervical lymph nodes the majority of which are located within the level III. In addition to this finding there is a nodule within the right lobe of the thyroid gland that demonstrates some heterogeneous intralesional calcification measuring 1.3 cm in maximal transaxial dimension which may represent a potential source of metastatic zeeshan disease. There is no identifiable mucosal mass however a squamous cell carcinoma cannot be definitively excluded on the basis of this examination and correlation with nasolaryngoscopy is recommended to exclude this possibility. I discussed case with Radiologist Jameson Casarez I ordered a Thyroid U/S , this was done 01/30 showing a highly suspicious TR5 nodule right thyroid lobe with associated lymphadenopathy and U/S Guided biopsy done 02/12/2023 showed: Atypia of unknown significance. Afirma testing pending. Case discussed with Dr. Guevara Pathologist at [facility] who mentioned the testing could take from 1-3 weeks to come back We had placed a stat referral referral with ENT surgeon for nasolaryngoscopy and potential Lymph node biopsy IF Thyroid nodule biopsy was negative or inconclusive. ENT offices did not give us appointment until after results of testing back. We have tried to speak to local ENT surgeons directly to discuss case with no success. I have asked our nerve specialist to inquire for appointment availability with an ENT at [facility]. Follow up with me after ENT Will also refer to [place] [facility] [place] & Plan (01/28/2023 12:36 PM EDT): Pt here for a follow up Back in December 26 patient came in with c/o right sided neck pain intensity 4-5/10 For approximately 7 months in the absence of any injury. Today she describes the discomfort as waxing and wayning On exam she had full ROM, there was no redness, there was some tenderness over her right sternocleidomastoid region with firmness suggestive of deep lymphadenopathy. No nucal rigidity. Ear and mouth normal CBC, LDH were Normal CT of soft tissues of the neck ordered was dne 01/21/2023 but it was not read until today. CT showed: multiple pathologically enlarged heterogeneously enhancing right- sided cervical lymph nodes the majority of which are located within the level III. In addition to this finding there is a nodule within the right lobe of the thyroid gland that demonstrates some heterogeneous intralesional calcification measuring 1.3 cm in maximal transaxial dimension which may represent a potential source of metastatic zeeshan disease. There is no identifiable mucosal mass however a squamous cell carcinoma cannot be definitively excluded on the basis of this examination and correlation with nasolaryngoscopy is recommended to exclude this possibility. I discussed case with Radiologist Jameson Casarez Plan: Thyroid U/S and U/S Guided biopsy of thyroid nodule meme. ENT referral with ENT surgeon for nasolaryngoscopy and potential Lymph node biopsy IF Thyroid nodule biopsy is negative Follow up with me in 3 weeks after testing Assessment & Plan (12/26/2022 10:00 AM EDT): Pt with c/o right sided neck pain 4-5/10 x 7 months in the absence of any injury. On exam there is full ROM, there is no redness, there is some tenderness over her right sternocleidomastoid region with firmness suggestive of deep lymphadenopathy. No nucal rigidity. Ear and mouth normal Plan: CBC, LDH, CT of soft tissues of the neck 4 week follow up Encounters Date Type Department Care Team Description 02/09/2025 Refill [facility] [address] [place] [address] Kevyn Samson MD Other fatigue 02/03/2025 2:15 PM EDT Office Visit [facility] [address] [place] [address] Kevyn Samson MD Dyslipidemia (Primary Dx); Hx of papillary thyroid carcinoma; Postoperative hypothyroidism; Impaired fasting glucose; Tubular adenoma of colon; Preventative health care; Breast cancer screening by mammogram; Seasonal allergies; Restless leg syndrome 02/03/2025 Travel 02/02/2025 Telephone [facility] [address] [place] [address] Kevyn Samson MD chart prep 01/27/2025 Patient Outreach [facility] [address] [place] [address] Kevyn Samson MD Pre-visit Planning (SDOH negative, Tobacco screening negative) from Last 3 Months Immunizations Immunization Administration Dates Next Due Hep A, Adult 07/12/2019,11/09/2007 Hep B, adult 12/09/2007,11/09/2007 Influenza Injectable Quadriv alant Preservative Free IIV4 MDCK 07/26/2020 Influenza injectable quadrivalent preservative f ree 01/28/2023,07/12/2019 Influenza, seasonal, injectable, preservative fr ee 06/15/2024 Tdap 02/20/2017 Social History Tobacco Use Types Packs/Day Years Used Date Smoking Tobacco: Never Passive Smoke Exposure: Never Smokeless Tobacco: Never Tobacco Cessation:Counseling Given: Not Answered Depression Answer Date Recorded Patient Health Questionnaire-9 Score 0 02/03/2025 Patient Health Questionnaire-9 Score 0 02/03/2025 Last PHQ-9: Questionnaire Data Not on file 0 02/03/2025 Housing Stability Answer Date Recorded What is your housing situation today? I have radha alvarado 01/27/[address] you li ve. Do you have problems with any of the following? None of the above 01/27/2025 Food Insecurity Answer Date Recorded Within the past 12 months, y ou worried that your food would run out before you got money to buy more: Never True 01/27/2025 Within the past 12 months,th e food you bought just didn't last and you didn't have enough money to get more: Never True 12/2024 Transportation Answer Date Recorded In the past 12 months, has l ack of transportation kept you from medical appts, meetings, work or from getting things needed for daily living? No 01/27/2025 Utilities Answer Date Recorded In the past 12 months, has t he electric, gas, oil or water company threatened to shut off services in your home? No 01/27/2025 Depression Answer Date Recorded Patient Health Questionnaire-2 Score 0 02/03/2025 Internet Access Answer Date Recorded Internet Access Q1 Yes 04/26/2024 Internet Access Q2 Not on file 04/26/2024 Comments No Sex and Gender Information Value Date Recorded Sex Assigned at Female 06/24/2022 10:17 AM EDT Legal Sex Female 10:17 AM EDT Gender Identity Female 06/24/2022 10:17 AM EDT Sexual Orientation Choose not to disclose 2021 10:17 AM EDT Last Filed Vital Signs Vital Sign Reading Time Taken Comments Blood Pressure 138/82 02/03/2025 2:14 PM EDT Pulse 77 02/03/2025 2:14 PM EDT Temperature 36.7 C (98.1 F) 02/03/2025 2:14 PM EDT Respiratory Rate 20 02/03/2025 2:14 PM EDT Oxygen Saturation 97% 02/03/2025 2:14 PM EDT Inhaled Oxygen Concentration - - Weight 65.8 kg (145 lb) 02/03/2025 2:14 PM EDT Height 157.5 cm (5' 2 ) 02/03/2025 2:14 PM EDT Body Mass Index 26.52 02/03/2025 2:14 PM EDT Plan of Treatment Health Maintenance Due Date Last Done Comments CT Colonography 1960 FIT DNA/Cologuard 1960 FIT 1960 FOBT 1960 HIV Screening 1960 Sigmoidoscopy 1960 Hepatitis B Vaccines (3 of 3 - Risk 3-dose series) 05/11/2008 12/09/2007, 11/09/2007 Pneumococcal Vaccine: 50+ Years (1 of 1 - PCV) 2012 Zoster Vaccines (1 of 2) 2012 RSV Patients and Patients Aged 60 years or older (1 - Risk 60-74 years 1-dose series) 2022 COVID-19 Vaccine ( season) 2024 Mammogram 07/04/2024 07/04/2023, 06/25, 07/04/2023, Additional history exists Colonoscopy 10/30/2024 10/30/2021 Colorectal Cancer Screening 10/30/2024 Alcohol/Substance Use Screening 06/15/2025 06/15/2024 Disability Screening 07/13/2025 07/13/2024 SDOH Screening 01/27/2026 01/27/2025 Depression Screening 02/03/2026 02/03/2025, 02/04/20 25 Tobacco Screening 02/03/2026 02/03/2025 DTaP/Tdap/Td Vaccines (2 - Td or Tdap) 02/20/2027 02/20/2017 Hepatitis A Vaccines Completed 07/12/2019, 11/09/19 08 Hepatitis C Screening Completed 07/14/2023, 021 Influenza Vaccine Completed 06/15/2024, , 07/26/2020, Additional history exists HIB Vaccines Aged Out No longer eligi ble based on patient's age to complete this topic HPV Vaccines Aged Out No longer eligi ble based on patient's age to complete this topic IPV Vaccines Aged Out No longer eligi ble based on patient's age to complete this topic Meningococcal B Vaccine Aged Out No l onger eligible based on patient's age to complete this topic Meningococcal Vaccine Aged Out No arnol aram eligible based on patient's age to complete this topic RSV under 20 months Aged Out No longe r eligible based on patient's age to complete this topic Rotavirus Vaccines Aged Out No longer eligible based on patient's age to complete this topic Procedures Procedure Name Priority Date/Time Associated Diagnosis Comments HEPATITIS PANEL, GENERAL Routine 07/14/2023 1:24 PM EST Elevated liver function tests BI MAMMOGRAM SCREENING TOMOSYNTHESIS BILATERAL Routine 07/04/2023 10:30 AM EST HM COLONOSCOPY Routine 10/30/2021 from Last 3 Months or Most Recently Relevant to Health Maintenance Results * Hepatitis A,B,C Profile (07/14/2023 1:24 PM EST) Hepatitis A IgM Nonreactive Nonreactive [facility] Comment:IgM antibodies to HAMMOND V not detected; does not exclude earlyacute or recovered HAV infection. ~Hepatitis B Surface Antibody REACTIVE Nonreactive [facility] Comment:REACTIVE: > 11.99 mI U/mL Hepatitis B Core Antibody Nonreactive Nonreactive [facility] Hepatitis C Antibody Nonreactive Nonreactive [facility] Comment:Antibodies to HCV no t detected; does not exclude early acuteHCV infection. Hepatitis B Surface Ag Negative Negative [facility] Blood Venous blood specimen / Unknown 07/14/2023 1:24 PM EST 07/14/2023 3:59 PM EST Kevyn Murphy MD LAB BLOOD ORDERABLES Final Result Performing Organization Address City/State/[facility] Co de Phone Number [facility] [address] [place] [phone] * BI Mammogram Screening Tomosynthesis Bilateral (07/04/2023 10:30 AM EST) Anatomical Region Laterality Modality Breast Bilateral Mammography 07/04/2023 10:3 0 AM EST Narrative 07/18/2023 1:35 PM EST [facility] [address] [place] [address] Mammography Report Signed Patient: Omayra Salmeron MR#: [id number] 7 : 1960 Acct:[id number] Age/Sex: 63 / F ADM Date: 07/04/23 Loc: [facility] Attending Dr: Kevyn Hdz MD Ordering Physician: Kevyn Hdz MD Resu lts: 1Negative Date of Service: 07/04/23 Follow Up: 1 Year From Orig inal Mammogram Procedure(s): MM tomosynthesis screening BI Accession Number(s): [id number] cc: Kevyn Hdz MD EXAMINATION: MM SCREENING DIGITAL BREAST TOMOSYNTHESIS, BILATERAL CLINICAL INFORMATION: Screening. Asymptomatic. COMPARISON: Mammography: 07/01/2022, 2021, 10/20/2018, 06/20/2017, 06/17/2016 TECHNIQUE: Digital breast tomosynthesis is performed in both the craniocaudal and mediolateral oblique views along with computer-aided detection (CAD). Synthesized 2D images are generated from the tomosynthesis. FINDINGS: The breasts are heterogeneously dense, which may obscure small masses (ACR BI-RADS breast composition Category c). There are no suspicious masses, suspicious grouped calcifications, or areas of architectural distortion in either breast. The parenchymal pattern is stable from prior exams. MM/MM tomosynthesis screening BI IMPRESSION: No mammographic evidence of malignancy. ASSESSMENT: BI-RADS BI-RADS 1 - Negative RECOMMENDATION: Routine annual mammography screening. 1 year F/U This examination should not preclude the clinical evaluation of a suspicious palpable abnormality. This patient's information was entered into a reminder system with a target due date for their next mammogram. Dictated By: Stephen Knapp MD Signed By: <Electronically signed by Stephen Knapp MD in OV> 07/18/23 1331 DD/ 1030 TD/TT: Sales Development Representative: Procedure Note Donotuseinterpreter, Image - 07/18/2023 [facility] [address] [place] [address] Mammography Report Signed Patient: Valdez Salmeron#: [id number] 7 : 1960cct:[id number] Age/Sex: 63 / FADM Date: 07/04/23 Loc: HO.MAMMO Attending Dr: Kevyn Hdz MD Ordering Physician: Kevyn Hdz MDResu lts: 1Negative Date of Service: 07/04/23Follow Up: 1 Year From Orig inal Mammogram Procedure(s): MM tomosynthesis screening BI Accession Number(s): [id number] cc: Kevyn Hdz MD EXAMINATION: MM SCREENING DIGITAL BREAST TOMOSYNTHESIS, BILATERAL CLINICAL INFORMATION: Screening. Asymptomatic. COMPARISON: Mammography: 07/01/2022, 2021, 10/20/2018, 06/20/2017, 06/17/2016 TECHNIQUE: Digital breast tomosynthesis is performed in both the craniocaudal and mediolateral oblique views along with computer-aided detection (CAD). Synthesized 2D images are generated from the tomosynthesis. FINDINGS: The breasts are heterogeneously dense, which may obscure small masses (ACR BI-RADS breast composition Category c). There are no suspicious masses, suspicious grouped calcifications, or areas of architectural distortion in either breast. The parenchymal pattern is stable from prior exams. MM/MM tomosynthesis screening BI IMPRESSION: No mammographic evidence of malignancy. ASSESSMENT: BI-RADS BI-RADS 1 - Negative RECOMMENDATION: Routine annual mammography screening. 1 year F/U This examination should not preclude the clinical evaluation of a suspicious palpable abnormality. This patient's information was entered into a reminder system with a target due date for their next mammogram. Dictated By: Stephen Knapp MD Signed By: <Electronically signed by Stephen Knapp MD in OV> 07/18/23 1331 DD/ 1030 TD/TT: Sales Development Representative: Kevyn Murphy MD IMG BI PROCEDURES Fin al Result * Hm Colonoscopy (10/30/2021) Colonoscopy Normal Normal 10/30/2021 Arelis Jacobo - 10/30/2021 1:16 PM EST Recommended 3 year follow up ( see scanned report) Historical Provider HEALTH MAINTENANCE Edited Result - Final from Last 3 Months or Most Recently Relevant to Health Maintenance Insurance [facility] Care Teams Waist Fitter Relationship Specialty Start Date End Date Kevyn Samson MD [address] [place] [address] PCP - General Internal Medicine 04/20/21
== END 2025-02-21 10:08 | disposition home or self-care (01) ==
LOC: HO.MAMMO 10:07
PROVIDERS: PCP Internal Medicine; Visit Provider Internal Medicine
DX: Z12.31 Encounter for screening mammogram for malignant neoplasm of breast (principal)
CPT/HCPCS: 77063; 77067

== ENCOUNTER → 2025-02-21 10:15 | Outpatient (BNV) | payer OTHER, SELFPAY | PROVIDERS: PCP Internal Medicine; Visit Provider Internal Medicine | DX: Z12.31 Encounter for screening mammogram for malignant neoplasm of breast (principal) | CPT/HCPCS: 77063; 77067 ==

== ENCOUNTER 2025-04-14 08:32 | Outpatient (REF) | payer OTHER, SELFPAY ==
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
--- OUTSIDE RECORDS SUMMARY | 2025-04-14 09:27 | XMS_ITS | Encounter Summary ---
Author Organization [facility] Address [address] [place] [address] Care Team Providers Care Sack Keeper Name Role Phone Kevyn Hdz Primary Care Provider + Encounter Details Date Type Department Care Team (Late st Contact Info) Description 05/08/2023 Orders Only [facility] Nuclear Medicine [address] [place], [place] [id number] Jameson Barr MD [address] [place] [address] Social History Tobacco Use Types Packs/Day Years Used Date Smoking Tobacco: Never Smokeless Tobacco: Never Alcohol Use Standard Drinks/Week Comments Not Currently 0 (1 standard drink = 0.6 oz pur e alcohol) Comments No Sex and Gender Information Value Date Recorded Sex Assigned at Female 04/06/2024 9:30 AM EDT Legal Sex Female 3:30 PM EDT Gender Identity Not on file Sexual Orientation Not on file documented as of this encounter Plan of Treatment Upcoming Encounters Date Type Department Care Team (Late st Contact Info) Description 04/15/2025 11:00 AM EDT Follow-Up [facility]ocr[facility]ology [facility] [address] [place] [address] Rj Rhodes MD [address] [place] [address] documented as of this encounter Visit Diagnoses Not on filedocumented in this encounter Care Teams Sack Keeper Relationship Specialty Start Date End Date Kevyn Hdz [address] [place] [id number] PCP - General Internal Medicine 02/17/23 documented as of this encounter
--- OUTSIDE RECORDS SUMMARY | 2025-04-14 09:27 | XMS_ITS | Encounter Summary ---
Author Organization [facility] Address [address] [facility] [address] [place] [phone] Phone Care Team Providers Care Sewing Machinist Name Role Phone Kevyn Hdz MD Primary Care Provide r Encounter Details Date Type Department Care Team (Late st Contact Info) Description 02/04/2024 Procedure Pass [facility], Ct Scan - [address] [address] Social History Tobacco Use Types Packs/Day Years Used Date Smoking Tobacco: Never Assessed Education Answer Date Recorded Are you interested in more education? Not on tasha e 02/04/2024 Are you concerned about learning? Not on file 02/04/2024 No 02/04/2024 No 02/04/2024 Digital Access Answer Date Recorded No 02/04/2024 No 02/04/2024 Reliable internet access at home? Not on file 02/04/2024 Device with a working camera? Not on file Intimate Partner Violence Answer Date R ecorded Are you denied basic needs s uch as food, clothing, or medical care? No 02/04/2024 In the past 12 months have y ou been in a relationship with a person who hurts, threatens, or tries to control you? No 02/04/2024 Are you denied basic needs s uch as food, clothing, or medical care? No 02/04/2024 In the past 12 months have y ou been in a relationship with a person who hurts, threatens, or tries to control you? No 02/04/2024 Comments Unknown Sex and Gender Information Value Date Recorded Sex Assigned at Unknown 02/04/2024 9:19 PM EDT Legal Sex Female 6:30 PM EDT Gender Identity Other 02/04/2024 9:19 PM EDT Sexual Orientation Don't know 02/04/2024 9: 19 PM EDT documented as of this encounter Functional Status * Calculated C-SSRS Risk Score (Lifetime/Recent) Answer Date of Assessment Author No Risk Indicated 02/04/2024 6:40 PM EDT Arianne Swain RN * [place] Suicide Severity Rating Scale (Screener/Recent Self-Report) Question Answer Date of Assessment Author 1. Wish to be (Past 1 Month) No 024 6:40 PM EDT Arianne Swain RN 2. Non-Specific Active Suici luis Thoughts (Past 1 Month) No 02/04/2024 6:40 PM EDT Arianne Swain RN 6. Suicidal Behavior (Lifetime) No 6:40 PM EDT Arianne Swain RN documented as of this encounter Plan of Treatment Not on file documented as of this encounter Visit Diagnoses Not on filedocumented in this encounter Care Teams Sewing Machinist Relationship Specialty Start Date End Date Kevyn Hdz MD [address] [place] [address] [address] [place] [id number] [email or web address] PCP - General Internal Medicine 02/04/24 documented as of this encounter Additional Source Comments The information contained in this document represents components of the legal health record. It is not the complete legal health record.[facility]
[2025-04-14 12:08] LABS: Alanine Aminotransferase 42 U/L (0-31); Albumin Level 4.7 g/dL (3.5-5.0); Alkaline Phosphatase 101 U/L (39-117); Anion Gap 12 (12-20); Aspartate Amino Transferase 33 U/L (5-31); Blood Urea Nitrogen 16 mg/dL (9-16); Calcium 9.2 mg/dL (8.4-10.2); Carbon Dioxide 28 mmol/L (22-29); Chloride 106 mmol/L (96-108); Cholesterol 253 mg/dL (<200); Estimated Glomerular Filt Rate > 60; HDL Cholesterol 55 mg/dL (>40); Potassium 4.2 mmol/L (3.3-5.1); Sodium 142 mmol/L (135-145); Total Protein 7.3 g/dL (6.5-8.0); Triglycerides 156 mg/dL (<150)
[2025-04-14 13:03] LABS: Free T4 (Free Thyroxine) 1.35 ng/dL (0.71-1.85)
== END 2025-04-14 08:33 | disposition home or self-care (01) ==
LOC: HO.HHCL 08:32
PROVIDERS: PCP Internal Medicine; Visit Provider Internal Medicine
DX: R73.01 Impaired fasting glucose (principal); E78.5 Hyperlipidemia, unspecified; Z85.850 Personal history of malignant neoplasm of thyroid
CPT/HCPCS: 36415; 80053; 80061; 84439; 84443

== ENCOUNTER 2025-06-29 15:22 | Outpatient (AMB) | payer OTHER, SELFPAY ==
--- NOTE | 2025-06-29 15:30 | A.OFFVIS_ITS ---
Vital Signs 06/29/25 15:35 Height 5 ft 2 in Weight 149 lb 14.629 oz BMI 27.4 BP 100/60 Blood Pressure Location Rt brachial Position Sitting Pulse 72 Pulse Source Pulse Oximeter Pulse Oximetry (%) 96 Oxygen Delivery Method Room Air Intake Visit Reasons: Hx of thyroid Ca, hypothyrodism Intake Note: NEW Patient presents today to establish care for Hypothyroidism & Thyroid C ancer: Picture Framer Required: Yes Picture Framer Language: Facilities Maintenance Engineer Services: Picture Framer Offered & Declined (DR Haro Speak Fluent Armenian) Accompanied by: Self / Same As Patient Allergies acetaminophen (ACETAMINOPHEN) Allergy (Intermediate, Verified 06/29/25 15:30) Shows Hepitis when takes too much oxycodone (OXYCODONE) Allergy (Intermediate, Verified 06/29/25 15:30) GI UPSET Medication List - Last Reconciled 06/29/25 by Yeset Tahir Trevino MD [COLLAGEN PEPTIDE 6,000 MG] ashwagandha extract 1,000 mg PO cetirizine 10 mg PO DAILY PRN cholecalciferol (vitamin D3) 25 mcg PO DAILY levothyroxine 112 mcg PO DAILY magnesium citrate 330 mg PO DAILY rosuvastatin 10 mg PO DAILY HPI Comments Details: Omayra is a 62-year-old female who initially presented with throat discomfort and was found by her primary care provider to have cervical lymphadenopathy. Subsequent CT imaging and fine-needle aspiration of the thyroid revealed papillary thyroid carcinoma. She underwent a total thyroidectomy with central and right neck dissection on April 07, 2023. 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 Florin gical margins were negative, and one of two parathyroid glands was involved. Lymph node dissection was positive for metastatic papillary thyroid carcinoma, including 2 of 11 level 6 nodes, 3 of 17 level 2 nodes, and 3 of 9 level 3 nodes, with the largest metastatic deposit measuring 2.5 cm without definitive extranodal extension. Lymphovascular invasion was present. Preoperative CT from February 2023 showed small pulmonary nodules (0.2 cm in the right upper and left lower lobes) without significant adenopathy. Her disease was staged as pT1b, N1b, M0, corresponding to AJCC stage II and categorized as IVAN intermediate risk based on the presence of microscopic extrathyroidal extension and cervical lymph node metastases measuring less than 3 cm. Following Thyrogen stimulation, she received 98.8 mCi of I-131 on September 17, 2023. The post-therapy whole-body scan demonstrated no evidence of radiotracer uptake suggestive of distant or extrathyroidal disease. Stimulated thyroglobulin level at that time was 6.6 ng/mL with undetectable thyroglobulin antibodies. From a thyroid cancer standpoint, her response to therapy remains indeterminate, given the current thyroglobulin level and the presence of small pulmonary nodules. She is clinically euthyroid on levothyroxine 112 mcg, with a target TSH range of 0.1?0.5 ?IU/mL for suppression. She will have blood work today to assess for dose adequacy and continue surveillance with serial thyroglobulin measurements and imaging. She is scheduled to return for follow-up in 3 months. Physical exam General: Well appearing. NAD. Neck/Thyroid: No residual thyroid or LN palpable CV: RRR, no murmur. No edema. Resp:Lungs clear to auscultation bilaterally Abdomen: Soft, nontender. nondistended Extremities/Neuro: No weakness or tremor of outstretched hands Labs: Component Value Date TSH <0.005 (L) 08/07/2023 TSH 0.599 05/08/2023 FREET4 1.32 08/07/2023 THYROGLOBULI <1 08/07/2023 THYROGLOBULI 0.3 (L) 08/07/2023 CALCIUM 8.7 04/08/2023 Thyroglobulin Antibody (08/07/2023 11:05 AM EST) Value: <1 IU/mL (Ref: <= IU/mL) Thyroglobulin (08/07/2023 11:05 AM EST) Value: 0.3 ng/mL (L) (Ref: Not specified) TSH Reflex Free T4 (08/07/2023 11:05 AM EST) TSH: <0.005 (L) (Ref: 0.280 - 3.890 uIU/mL) Additional Lab Results TSH <0.005 (L) 09/15/2023 TSH <0.005 (L) 08/07/2023 TSH 0.599 05/08/2023 FREET4 1.55 09/15/2023 FREET4 1.32 08/07/2023 THYROGLOBULI <1 09/19/2023 THYROGLOBULI 66.01 09/19/2023 CALCIUM 9.7 09/15/2023 Imaging: ULTRASOUND SOFT TISSUE NECK AND THYROID (04/06/2024, Shelton Barrett MD) INDICATION: History of thyroid cancer. Malignant neoplasm of thyroid gland. TECHNIQUE: Ultrasound of the soft tissues of the neck and thyroid. Multiple grayscale and color Doppler images were obtained. COMPARISON: Nuclear medicine I-131 post ablation images from 09/24/2023 FINDINGS: The thyroid gland is surgically absent. No abnormality identified within the thyroid bed. No suspicious cervical lymphadenopathy. IMPRESSION: Status post thyroidectomy, with no abnormality seen in the thyroid bed, and no suspicious cervical lymphadenopathy. CT CHEST WITHOUT CONTRAST 02/04/24 Lungs: No focal consolidation. Bibasilar atelectatic changes. Right upper lobe pulmonary nodule measuring 0.3 cm. Left lower lobe 0.2 cm pulmonary nodule. Pleura: No pleural effusion or pneumothorax. Mediastinum: Postsurgical changes related to prior thyroidectomy. Heart is within normal size limits. No significant pericardial effusion. Lymph Nodes: No enlarged supraclavicular, axillary, mediastinal, or hilar lymph nodes. Upper Abdomen: No acute abnormality detected in the visualized upper abdomen. Absence of intravenous contrast limits sensitivity for detecting solid organ findings. Chest Wall: No chest wall mass. Bones: Mild multilevel degenerative changes of the visualized spine. I-131 THYROID TREATMENT REPORT Addendum by Jameson Barr MD on 10/01/2023 10:20 AM EST 108.8 mCi I-131 administered. Narrative (09/17/2023 11:01 AM EST): EXAM: I131 THYROID TREATMENT INDICATION: 63 years with thyroid CA. Thyrogen stimulation. PHARMACEUTICAL/CONCLUSION: After it was determined that the patient qualified for outpatient high dose, immediate post-therapy and radiation safety issues were reviewed in detail, the patient ingested 98.8 mCi of I131 [place] for ablation of residual thyroid tissue. Environmental exposure determined to be under 500 mrem. Release calculations: Activity Q: 99 mCi Gamma Ray Constant (grc): 2.2 R/mCi at 1 cm Occupancy (1st 8 hours): E1 0.1 Occupancy (8 hours to total decay): E2 0.1 Impressions (09/25/2023 11:12 AM EST): Status post thyroid gland ablation with expected tracer activity in the thyroid bed region. No evidence of radiotracer uptake to suggest extra-thyroidal disease. Narrative (09/25/2023 11:12 AM EST): INDICATION: History of papillary thyroid carcinoma status post near-total thyroidectomy and I-131 ablation of residual thyroid. Evaluate for evidence of r esidual thyroid activity or metastatic disease. PHARMACEUTICAL: 98.8 mCi I-131 were administered orally on 09/17/2023. Whole body and static images were then obtained at 7 days. COMPARISON: CT chest from 03/07/2023. FINDINGS: Multiple scintiphotos demonstrate focal thyroid activity in the thyroid bed region, without evidence of extrathyroidal disease. There is a physiologic pattern of iodide distribution throughout the salivary glands, nasopharynx, gastrointestinal tract and bladder. NM Thyroid I-131 Post Therapy Whole Body Scan (09/24/2023 - 09/25/2023) INDICATION: History of papillary thyroid carcinoma status post near-total thyroidectomy and I-131 ablation of residual thyroid. Evaluate for evidence of residual thyroid activity or metastatic disease. PHARMACEUTICAL: 98.8 mCi I-131 were administered orally on 09/17/2023. Whole body and static images were then obtained at 7 days. COMPARISON: CT chest from 03/07/2023. FINDINGS: Multiple scintiphotos demonstrate focal thyroid activity in the thyroid bed region, without evidence of extrathyroidal disease. There is a physiologic pattern of iodide distribution throughout the salivary glands, nasopharynx, gastrointestinal tract and bladder. Pathology: PATHOLOGY REPORT 04/10/2023 ([facility]) Specimen #1 - Thyroid, Total Thyroidectomy: * PAPILLARY THYROID CARCINOMA (1.4 CM), CONVENTIONAL (CLASSIC) SUBTYPE, right lobe. * PAPILLARY THYROID MICROCARCINOMA (0.4 CM), INFILTRATIVE FOLLICULAR SUBTYPE, right lobe. * Pathologic stage (AJCC 8th edition): pT1b(m) N1b. * One of two lymph nodes, positive for papillary thyroid carcinoma (1/2). * Focal microscopic extrathyroidal extension (2 mm) into fibroadipose tissue is identified. * Resection margins are negative for carcinoma (< 1 mm). * See synoptic report for further details. Specimen #2 - Neck Lymph Node (Level 6), Dissection: * Two of eleven lymph nodes, positive for metastatic carcinoma (2/11). * A fragment of benign parathyroid tissue. * A fragment of benign thymic tissue. Specimen #3 - Neck Lymph Node (Level 2), Dissection: * Three of seventeen lymph nodes, positive for metastatic carcinoma (3/17). Specimen #4 - Neck Lymph Node (Level 3), Dissection: * Three of nine lymph nodes, positive for metastatic carcinoma (3/9). * The largest metastatic deposit: 2.5 cm; no definitive extranodal extension identified. Specimen #5 - Neck Lymph Node (Level 4), Dissection: * One of eight lymph nodes, positive for metastatic carcinoma (1/8). * Lymphovascular invasion present. HYROID GLAND: RESECTION - All Specimens (8th Edition - Protocol posted: 11/13/2022) SPECIMEN Procedure: Total thyroidectomy TUMOR Tumor Focality: Multifocal Tumor Site: Right lobe Tumor Size: Greatest Dimension: 1.4 cm; Additional Dimensions: 1.2 cm, 0.8 cm Histologic Tumor Types and Subtypes: Papillary carcinoma, classic subtype Mitotic Rate: Less than 3 mitoses per 2mm? Tumor Necrosis: Not identified Angioinvasion (vascular invasion): Present Lymphatic Invasion: Present Extrathyroidal Extension: Microscopic fibroadipose tissue invasion only Margin Status: All margins negative for carcinoma Distance from Invasive Carcinoma to Closest Margin: Less than 1 mm REGIONAL LYMPH NODES Tumor present in regional lymph node(s) Number of Lymph Nodes with Tumor: 10 Felicia Level(s) Involved: Level , Right Lateral Level II, Right Lateral Level I II, Right Lateral Level IV Size of Largest Metastatic Deposit: 2.5 cm Extranodal Extension (DORA): Not identified Number of Lymph Nodes Examined: 47 pTNM CLASSIFICATION (AJCC 8th Edition) pT Category: pT1b T Suffix: (m) pN Category: pN1b PFSH Medical History Family history of breast cancer Hemorrhoids with complication Gastroesophageal reflux disease Steatosis Elevated liver enzymes Surgical History Hx of thyroidectomy Hx of endoscopy Hx of colonoscopy History of hysterectomy Family History Father Hypercholesterolemia Mother Hypertension Osteoporosis Arthritis Social History Household Members Other:: lives with father Alcohol intake: former Patient Tobacco Use Status: Never used Tobacco Current occupational status: employed 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 Subsequent CT imaging and fine-needle aspiration of the thyroid revealed papillary thyroid carcinoma. She underwent a total thyroidectomy with central and right neck dissection on April 07, 2023. 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 Surgical margins were negative, and one of two parathyroid glands was involved. Lymph node dissection was positive for metastatic papillary thyroid carcinoma, including 2 of 11 level 6 nodes, 3 of 17 level 2 nodes, and 3 of 9 level 3 nodes, with the largest metastatic deposit measuring 2.5 cm without definitive extranodal extension. Lymphovascular invasion was present. Preoperative CT from February 2023 showed small pulmonary nodules (0.2 cm in the right upper and left lower lobes) without significant adenopathy. Her disease was staged as pT1b, N1b, M0, corresponding to AJCC stage II and c ategorized as IVAN intermediate risk based on the presence of microscopic extrathyroidal extension and cervical lymph node metastases measuring less than 3 cm. Following Thyrogen stimulation, she received 98.8 mCi of I-131 on September 17, 2023. The post-therapy whole-body scan demonstrated no evidence of radiotracer uptake suggestive of distant or extrathyroidal disease. Stimulated thyroglobulin level at that time was 6.6 ng/mL with undetectable thyroglobulin antibodies. From a thyroid cancer standpoint, her response to therapy remains indeterminate, given the current thyroglobulin level and the presence of small pulmonary nodules. Plan She is clinically euthyroid on levothyroxine 112 mcg, I agree with a target TSH range of 0.1?0.5 Obtain tumor markers: Thyroglobulin, thyroglobulin antibodies, TSH Obtain thyroid ultrasound Follow-up in 3 months. Plan 70 minutes spent reviewing previous records, labs, imaging, education and documenting in the chart Orders: Orders Free T4 (Free Thyroxine) 06/29/25 Z85.850 - Personal history of malignant neoplasm of thyroid US thyroid 06/29/25 Z85.850 - Personal history of malignant neoplasm of thyroid Thyroglobulin Antibodies 06/29/25 Z85.850 - Personal history of malignant neoplasm of thyroid Thyroglobulin Tumor Marker 06/29/25 Z85.850 - Personal history of malignant neoplasm of thyroid Thyroid Stimulating Hormone 06/29/25 Z85.850 - Personal history of malignant neoplasm of thyroid Referrals Pulmonology Referral R91.8 - Other nonspecific abnormal finding of lung field Coding Level of Care Code New Pt Level 5 (30267) Complex EM visit Add On G2211 Diagnoses Hx of papillary adenocarcinoma of thyroid Z85.850
[2025-06-29 15:35] VITALS: BP 100/60; PULSE 72; O2SAT 96; BMI 27.4
--- OUTSIDE RECORDS SUMMARY | 2025-06-29 18:18 | XMS_ITS | Encounter Summary ---
Author Organization [facility] Address [address] [place] [address] Care Team Providers Care Legal Process Specialist Name Role Phone Kevyn Hdz Primary Care Provider + Encounter Details Date Type Department Care Team (Late st Contact Info) Description 05/08/2023 Orders Only [facility] Nuclear Medicine [address], [place] [phone] Jameson Barr MD [address] [place] [address] Social History Tobacco Use Types Packs/Day Years [...] on filedocumented in this encounter Care Teams Legal Process Specialist Relationship Specialty Start Date End Date Kevyn Hdz [address] [place] [address] PCP - General Internal Medicine 02/17/23 documented as of this encounter
--- OUTSIDE RECORDS SUMMARY | 2025-06-29 18:18 | XMS_ITS | Encounter Summary ---
Author Organization [facility] Address [address] [facility] [address] [place] [id number] Phone Care Team Providers Care Lawn Maintenance Worker Name Role Phone Kevyn Hdz MD Primary Care Provide r Encounter Details Date Type Department Care Team (Late st Contact Info) Description 02/04/2024 Procedure Pass [facility], Ct Scan - [address] [address] Social History Tobacco Use Types Packs/Day Years [...] 6:40 PM EDT Arianne Swain RN * [place] Suicide Severity Rating Scale (Screener/Recent Self-Report) Question [...] on filedocumented in this encounter Care Teams Lawn Maintenance Worker Relationship Specialty Start Date End Date Kevyn Hdz MD [address] [place] [address] [address] [place] [id number] [email or web address] PCP - General Internal Medicine 02/04/24 documented as of this encounter Additional Source Comments The information contained in this document represents components of the legal health record. It is not the complete legal health record.[facility]
--- OUTSIDE RECORDS SUMMARY | 2025-06-29 18:18 | XMS_ITS | Clinical Summary ---
Author Organization [employer] Address [address] [facility] 7[address] [place] [address] Care Team Providers Care Digital Photo Printer Name Role Phone Kevyn Samson MD Primary [...] needed for shortness of breath or wheezing. 023 Active Calcium Antacid 500 MG chewable tablet CHEW AND SWALLOW 1 TABLET THREE TIMES DAILY IN THE MORNING, AT NOON, AND AT BEDTIME NEEDED FOR INDIGESTION OR HEARTBURN 90 tablet 3 024 Active ketorolac (Acular) 0.4 % ophthalmic solutionIndicatio ns:Subconjunctiva l hemorrhage of left eye,Blurry vision, bilateral Administer 1 drop into the left eye 4 times daily. 5 mL 024 Active cetirizine (ZyrTEC) 10 MG tabletIndications :Seasonal allergies Take 1 tablet (10 mg) by mouth Once per day. 30 tablet 2 025 Active fluticasone (Flonase) 50 MCG/ACT nasal sprayIndications: Seasonal allergies Administer 1-2 sprays into each nostril Once per day. Shake gently. Before first use, prime pump. After use, clean tip and replace cap. 16 g 2 025 2025 Active cholecalciferol (Vitamin D-3) 25 MCG tabletIndications :Other fatigue TAKE 1 TABLET BY MOUTH EVERY DAY 90 tablet 3 025 Active rosuvastatin (Crestor) 10 MG tabletIndications :Dyslipidemia Take 1 tablet (10 mg) by mouth Once per day. 30 tablet 3 025 2025 Active levothyroxine (Synthroid, Levoxyl) 112 MCG tabletIndications :Postoperative hypothyroidism Take 1 tablet (112 mcg) by mouth Once per day. 90 tablet 1 025 Active levothyroxine (Synthroid, Levoxyl) 112 MCG tabletIndications :Postoperative hypothyroidism Take 1 tablet (112 mcg) by mouth Once per day. 30 tablet 3 025 2024 Discontinued(R eorder (will not trigger notification to Pharmacy)) Active Problems Problem Noted Date Diagnosed Date Overweight (BMI 25.0-29.9) 06/09/2025 Assessment & Plan (06/09/2025 2:27 PM EDT): Patient has been counseled and educated about diet and exercise. Personal goal of weight loss discussedPatient has comorbidity of: hypothyroidism Restless leg syndrome 06/15/2024 Assessment & Plan [...] (03/04/2024 8:53 AM EDT): Pt seen at [facility] 01/24/2024, she presented to the ED [...] prefers to be self-referred to [facility] in [place] and will follow-up with clinician during next medical appointment. PLAN: (check all that apply) Behavioral Health Integration Plan Patient Self Plan Patient to utilize skills provided in intervention , Patient to reach out to [facility] team as needed, Comply with medication , and Patient to reach out to [facility] as needed Self-referred to [facility] program in [place]. Assessment & Plan (02/09/2024 4:18 PM EDT): [...] a traumatic experience. Omayra presented to the [facility] for a follow-up. She was involved in [...] She is open to do follow-up with [facility] clinician during next medical appointment with Dr. White. PLAN: (check all that apply) Behavioral Health Integration Plan Internal Follow up with [facility] Patient Self Plan Patient to utilize skills provided in intervention , Patient to reach out to [facility] team as needed, Comply with medication , and Patient to reach out to [facility] as needed Anxiety 02/09/2024 Assessment & Plan (06/15/2024 12:11 PM EDT): Feels good Seen by our [facility] clinician, She presented with Acute Stress Disorder [...] prefers to be self-referred to [facility] in [place] and will follow-up with clinician during next medical appointment. PLAN: (check all that apply) Behavioral Health Integration Plan Patient Self Plan Patient to utilize skills provided in intervention , Patient to reach out to [facility] team as needed, Comply with medication , and Patient to reach out to [facility] as needed Self-referred to [facility] program in [place]. Assessment & Plan (03/04/2024 10:28 AM EDT): Seen by our [facility] clinician, She presented with Acute Stress Disorder [...] a traumatic experience. Omayra presented to the [facility] for a follow-up. She was involved in [...] She is open to do follow-up with [facility] clinician during next medical appointment with Dr. White. PLAN: (check all that apply) Behavioral Health Integration Plan Internal Follow up with [facility] Patient Self Plan Patient to utilize skills provided in intervention , Patient to reach out to [facility] team as needed, Comply with medication , and Patient to reach out to [facility] as needed Other fatigue 07/08/2023 Assessment & Plan (07/08/2023 11:59 AM EST): Pt with c/o feeling fatigued ever since her thyroidectomy. Vital signs and weight remain stable, exam unremarkable Plan: Obtain CBC, TSH, PTH, CMP Pt has follow up with Drawing Box Tender next month Follow up with me afterwards [...] treatment Postoperative hypothyroidism 04/24/2023 Assessment & Plan (06/09/2025 2:07 PM EDT): Pt on levothyroxine 112 mcg po daily by Drawing Box Tender Last seen 03/04/[address] motley. She cannot continue to see them at [facility] Will refer to Local Drawing Box Tender S/p radioactive iodine treatment Will continue to prescribe her Levothyroxine for now Assessment & Plan (02/03/2025 2:28 PM EDT): Pt on levothyroxine 112 mcg po daily by her Drawing Box Tender Last seen 03/04/[address] motley S/p radioactive iodine treatment Assessment & Plan (06/15/2024 11:54 AM EDT): Pt on levothyroxine 112 mcg po daily by her Drawing Box Tender Last seen 03/04/[address] motley S/p radioactive iodine treatment Assessment & Plan (03/04/2024 10:21 AM EDT): Pt on levothyroxine 112 mcg po daily by her Drawing Box Tender Last seen 11/13/[address] motley S/p radioactive iodine treatment Has a follow up today Assessment & Plan (11/18/2023 10:29 AM EDT): Pt on levothyroxine 125 mcg po daily by her Drawing Box Tender Last seen 11/13/[address] tiesha Santana/p radioactive iodine treatment Assessment & Plan (09/09/2023 10:13 AM EST): Pt on levothyroxine recently lowered to 125 mcg po daily by her Drawing Box Tender She has a follow up with Endocrinology she is scheduled to receive radioactive iodine treatment Assessment & Plan (05/29/2023 4:15 PM EDT): Pt on levothyroxine recently increased to 137 mcg po daily by her Drawing Box Tender Pt feels ever since the dose was [...] Overview (03/05/2023): Confirmed via biopsy 02/2023 [facility], they are coordinating w/ pt for CT to eval for metastatic disease and for surgical planning Assessment & Plan (06/09/2025 2:26 PM EDT): Patient is here for a f/u. S/P radioactive iodine treatment 09/15/[address] Motley 03/04/2024 Unable to continue to follow at [facility] Will refer to local funder She is s/p total thyroidectomy April 07, [...] is under the care of Dr Motley Drawing Box Tender at [facility] who counseled her about the [...] dose of 100 mCi. Assessment & Plan (02/03/2025 2:27 PM EDT): [...] is under the care of Dr Motley Drawing Box Tender at [facility] who counseled her about the [...] is under the care of Dr Shoemaker Drawing Box Tender at [facility] who counseled her about the [...] is under the care of Dr Shoemaker Drawing Box Tender at [facility] who counseled her about the [...] is under the care of Dr Shoemaker Drawing Box Tender at [facility] who counseled her about the [...] is under the care of Dr Shoemaker Drawing Box Tender at [facility] who counseled her about the [...] is under the care of Dr Shoemaker Drawing Box Tender at [facility] who counseled her about the [...] present. Pt is already scheduled to see funder 05/08/2023 Dr Shoemaker at [facility] for likely SPRAGUE treatment Pt [...] in with c/o right sided neck pain 12/02 x 7 months in the absence of [...] Case discussed with Dr. Guevara Pathologist at [facility] who mentioned the testing could take from [...] with no success. I have asked our employment service specialist to inquire for appointment availability with ENT at [facility]. Follow up with me after ENT Will also refer to Endocrinology at [facility] Assessment & Plan (01/28/2023 8:53 AM EDT): [...] Preventative health care 12/25/2022 Assessment & Plan (06/09/2025 2:09 PM EDT): Mammogram: 02/21/2025 Normal Pap Smear: s/p hysterectomy 2007 She has her ovaries Colonoscopy: 10/30/2021 Tubular adenoma 3 year follow up recommended (2024) referred to GI already Assessment & Plan (02/03/2025 2:31 PM EDT): [...] adenoma of colon 09/15/2019 Assessment & Plan (06/09/2025 2:08 PM EDT): Last colonoscopy done 10/30/2021 Dr Diaz showed polyps and hemorrhoids Needs a repeat in 3 Yrs (2024) per GI recommendations Referred back last visit Assessment & Plan (02/03/2025 2:30 PM EDT): Last colonoscopy done 10/30/2021 Dr Diaz showed polyps and hemorrhoids Needs a repeat in 3 Yrs (2024) per GI recommendations Referred back Assessment & Plan (12/26/2022 9:21 AM EDT): Last colonoscopy done 10/30/2021 showed polyps and hemorrhoids Needs a repeat in 3 Yrs (2024) per GI recommendations Impaired fasting glucose 11/10/2014 Assessment & Plan (06/09/2025 2:25 PM EDT): Glucose 03/2025: 109 Continue to monitor Assessment & Plan (02/03/2025 2:28 PM EDT): [...] stone 05/24/2013 Dyslipidemia 06/16/2012 Assessment & Plan (06/09/2025 2:06 PM EDT): Patient elevated lipids. Most recent lipid profile from: Lab Results Component Value Date TRIG 156 (H) 04/14/2025 TRIG 92 01/17/2023 CHOL 253 (H) 04/14/2025 LDLCHOLCAL 167 (H) 04/14/2025 HDL 55 04/14/2025 Currently not on any regimen. She used to be on Fenofibrate but not taking since November 2020 . Plan: Start Atorvastatin 20 mg po qhs advised to try to adhere to a low cholesterol diet, counseled and educated about diet and exercise, Patient encouraged to come up with a personal goal for weight loss. Assessment & Plan (02/03/2025 2:24 PM EDT): [...] Case discussed with Dr. Guevara Pathologist at [facility] who mentioned the testing could take from [...] with no success. I have asked our employment service specialist to inquire for appointment availability at [facility]. Follow up with me after ENT Will also refer to Endocrinology at [facility]. ENT at [facility] does not have availability Lymphadenopathy of right [...] Case discussed with Dr. Guevara Pathologist at [facility] who mentioned the testing could take from [...] with no success. I have asked our employment service specialist to inquire for appointment availability with an ENT at [facility]. Follow up with me after ENT Will also refer to Endocrinology at [facility] Assessment & Plan (01/28/2023 12:36 PM EDT): [...] Encounters Date Type Department Care Team Description 06/09/2025 2:15 PM EDT Office Visit [facility] [address] [place] [phone] Kevyn Samson MD Dyslipidemia (Primary Dx); Postoperative hypothyroidism; Tubular adenoma of colon; Impaired fasting glucose; Hx of papillary thyroid carcinoma; Overweight (BMI 25.0-29.9); Preventative health care; Dietary counseling; Exercise counseling; Encounter for immunization 06/09/2025 Travel 06/08/2025 Telephone [facility] [address] [place] [address] Kevyn Samson MD chart prep 05/19/2025 Orders Only [address] [address] Kevyn Samson MD Postoperative hypothyroidism (Primary Dx) 05/16/[address] [address] Kevyn Samson MD Medication Question 04/14/2025 Orders Only [facility] [address] [place] [address] Kevyn Samson MD from Last 3 Months Immunizations Immunization Administration Dates Next Due Hep A, Adult 07/12/2019,11/09/2007 Hep B, adult 12/09/2007,11/09/2007 Influenza Injectable Quadriv alant Preservative Free IIV4 MDCK 07/26/2020 Influenza injectable quadrivalent preservative f ree 01/28/2023,07/12/2019 Influenza, seasonal, injectable, preservative fr ee 06/09/2025,06/15/2024 Pneumococcal Conjugate PCV 20 06/09/2025 Tdap 02/20/2017 Social History Tobacco Use Types [...] Sign Reading Time Taken Comments Blood Pressure 130/70 06/09/2025 2:17 PM EDT Pulse 63 06/09/2025 2:17 PM EDT Temperature 36.2 C (97.2 F) 06/09/2025 2:17 PM EDT Respiratory Rate 10 06/09/2025 2:17 PM EDT Oxygen Saturation 98% 06/09/2025 2:17 PM EDT Inhaled Oxygen Concentration - - Weight 66.7 kg (147 lb) 06/09/2025 2:17 PM EDT Height 157.5 cm (5' 2 ) 06/09/2025 2:17 PM EDT Body Mass Index 26.89 06/09/2025 2:17 PM EDT Plan of Treatment Health Maintenance Due Date Last Done Comments CT Colonography 1960 FIT DNA/Cologuard 1960 FIT 1960 FOBT 1960 HIV Screening 1960 Sigmoidoscopy 1960 Alcohol/Substance Use Screening 1974 Hepatitis B Vaccines (3 of 3 - Risk 3-dose series) 05/11/2008 12/09/2007, 11/09/2007 Zoster Vaccines (1 of 2) 2012 RSV Patients and Patients Aged 60 years or older (1 - Risk 60-74 years 1-dose series) 2022 Colonoscopy 10/30/2024 10/30/2021 Colorectal Cancer Screening 10/30/2024 COVID-19 Vaccine ( season) 2025 Disability Screening 07/13/2025 07/13/2024 SDOH Screening 01/27/2026 01/27/2025 Depression Screening 02/03/2026 02/03/2025, 02/04/20 25 Mammogram 02/21/2026 02/21/2025, 06/25, 07/04/2023, Additional history exists Tobacco Screening 06/09/2026 06/09/2025 DTaP/Tdap/Td Vaccines (2 - Td or Tdap) 02/20/2027 02/20/2017 Hepatitis A Vaccines Completed 07/12/2019, 11/09/19 08 Hepatitis C Screening Completed 07/14/2023, 021 Influenza Vaccine Completed 06/09/2025, , 01/28/2023, Additional history exists Pneumococcal Vaccine: 50+ Years Completed 06/09/2025 HIB Vaccines Aged Out No longer eligi [...] Procedure Name Priority Date/Time Associated Diagnosis Comments T4, FREE Routine 04/14/2025 8:36 AM EDT TSH W/REFLEX TO FT4 Routine 04/14/2025 8 :36 AM EDT Hx of papillary thyroid carcinoma COMPREHENSIVE METABOLIC PANEL Routine 04/14/2025 8:36 AM EDT Impaired fasting glucose LIPID PANEL, STANDARD Routine 04/14/2025 8:36 AM EDT Dyslipidemia BI MAMMOGRAM SCREENING TOMOSYNTHESIS BILATERAL Routine 02/21/2025 10:15 AM EDT Breast cancer screening by mammogram HEPATITIS PANEL, GENERAL Routine 07/14/2023 1:24 PM EST Elevated liver function tests HM COLONOSCOPY Routine 10/30/2021 from Last 3 Months or Most Recently Relevant to Health Maintenance Results * (ABNORMAL) TSH with Reflex to Free T4 (04/14/2025 8:36 AM EDT) TSH reflex Free T4 0.01(L) 0.32 - 4.0 uIU/mL [facility] Blood Venous blood specimen / Unknown 04/14/2025 8:36 AM EDT 04/14/2025 11:21 AM EDT us Kevyn Murphy MD LAB BLOOD ORDERABLES Final Result [facility] [address] [place] [phone] * T4, Free (04/14/2025 8:36 AM EDT) Free T4 (Free Thyroxine) 1.35 0.71 - 1.85 ng/dL [facility] 04/14/2025 8:36 AM EDT 04/14/2025 11:21 AM EDT Kevyn Murphy MD LAB BLOOD ORDERABLES Final Result [facility] [address] [place] [phone] * (ABNORMAL) Lipid Panel, Standard (04/14/2025 8:36 AM EDT) Triglycerides 156(H) <150 mg/dL [facility] Comment:Desirable Triglyceri de: less than 150 mg/dLBorderline High Triglyceride 150-199 mg/dLHigh Triglyceride: 200-499 mg/dLVery High Triglyceride: greater than or equal to 5OO mg/dL Cholesterol 253(H) <200 mg/dL [facility] Comment:Desirable Cholestero l: less than 200 mg/dLBorderline High Cholesterol: 200-239 mg/dLHigh Cholesterol: greater than 239 mg/dL LDL Cholesterol Calculated 167(H) <100 mg/dL [facility] Comment:Desirable LDL: less than 100 mg/dLNear Optimal/Above Optimal LDL: 110- 129 mg/dLBorderline High LDL: 130-159 mg/dLHigh LDL: 160-189 mg/dLVery High LDL: greater than or equal to 190 mg/dL HDL Cholesterol 55 >40 mg/dL [facility] Comment:Desirable HDL: great er than 40 mg/dL Note: This HDL assay may give artificially low results in patients with liver disease. Blood Venous blood specimen / Unknown 04/14/2025 8:36 AM EDT 04/14/2025 11:21 AM EDT us Kevyn Murphy MD LAB BLOOD ORDERABLES Final Result Performing Organization Address City/[facility]/ZIP Co de Phone Number [facility] [address] [place] [phone] * (ABNORMAL) Comprehensive Metabolic Panel (04/14/2025 8:36 AM EDT) Sodium 142 135 - 145 mmol/L [facility] Potassium 4.2 3.3 - 5.1 mmol/L [facility] Chloride 106 96 - 108 mmol/L [facility] Carbon Dioxide 28 22 - 29 mmol/L [facility] Anion Gap 12 12 - 20 [facility] Urea Nitrogen (BUN) 16 9 - 16 mg/dL [facility] Creatinine, Serum 0.69 0.5 - 1.4 mg/dL [facility] Estimated Glomerular Filt Rate >60 [facility] Comment:Chronic Kidney Disea se: Estimated GFR < 60 mL/min/[id number] Kidney Disease: Estimated GFR < 15 mL/min/1.73m2 Glucose 109 60 - 115 mg/dL [facility] Calcium 9.2 8.4 - 10.2 mg/dL [facility] Bilirubin, Total 0.7 0.0 - 1.0 mg/dL [facility] Aspartate Amino Transferase 33(H) 5 - 31 U/L [facility] Alanine Aminotransferase 42(H) 0 - 31 U/L [facility] Total Protein 7.3 6.5 - 8.0 g/dL [facility] Albumin Level 4.7 3.5 - 5.0 g/dL [facility] Alkaline Phosphatase 101 39 - 117 U/L [facility] Blood Venous blood specimen / Unknown 04/14/2025 8:36 AM EDT 04/14/2025 11:21 AM EDT Kevyn Murphy MD LAB BLOOD ORDERABLES Final Result Performing Organization Address City/[facility]/ZIP Co de Phone Number [facility] [address] [place] [phone] * BI Mammogram Screening Tomosynthesis Bilateral (02/21/2025 10:15 AM EDT) Anatomical Region Laterality Modality Breast Bilateral Mammography 02/21/2025 10:1 5 AM EDT Narrative 03/06/2025 1:53 PM EDT [facility] [place] [address] Mammography Report Signed Patient: Omayra Salmeron MR#: [id number] 7 : 1960 Acct:[id number] Age/Sex: 64 / F ADM Date: 02/21/25 Loc: [facility] Attending Dr: Kevyn Hdz MD Ordering Physician: Kevyn Hdz MD Resu lts: 1Negative Date of Service: 02/21/25 Follow Up: 1 Year From Orig ina Mammogram Procedure(s): MM tomosynthesis screening BI Accession Number(s): [id number] cc: Kevyn Hdz MD EXAMINATION: MM SCREENING [...] 03/06/25 1350 DD/ 1015 TD/TT: 02/21/25 1024 Dock Manager: Procedure Note Donotuseinterpreter, Image - 03/06/2025 [facility] [address] [place], [place] [address] Mammography Report Signed Patient: Valdez Salmeron#: [id number] 7 : 1960cct:[id number] Age/Sex: 64 / FADM Date: 02/21/25 Loc: HO.MAMMO Attending Dr: Kevyn Hdz MD Ordering Physician: Kevyn Hdzu lts: 1Negative Date of Service: 02/21/25Follow Up: 1 Year From Orig inal Mammogram Procedure(s): MM tomosynthesis screening BI Accession Number(s): [id number] cc: Kevyn Hdz MD EXAMINATION: MM SCREENING [...] 03/06/25 1350 DD/ 1015 TD/TT: 02/21/25 1024 Dock Manager: Kevyn Murphy MD IMG BI PROCEDURES Fin al Result * Hepatitis A,B,C Profile (07/14/2023 1:24 PM EST) Hepatitis A IgM Nonreactive Nonreactive [facility] Comment:IgM antibodies to HAMMOND V not detected; does not exclude earlyacute or recovered HAV infection. ~Hepatitis B Surface Antibody REACTIVE Nonreactive [facility] Comment:REACTIVE: > 11.99 mI U/mL Hepatitis B Core Antibody Nonreactive Nonreactive [facility] Hepatitis C Antibody Nonreactive Nonreactive [facility] Comment:Antibodies to HCV no t detected; does not exclude early acuteHCV infection. Hepatitis B Surface Ag Negative Negative [facility] Blood Venous blood specimen / Unknown 07/14/2023 1:24 PM EST 07/14/2023 3:59 PM EST Kevyn Murphy MD LAB BLOOD ORDERABLES Final Result [facility] [address] [place] [phone] * Hm Colonoscopy (10/30/2021) Colonoscopy Normal Normal 10/30/2021 Narrative Arelis Brooks - 10/30/2021 1:16 PM EST Recommended 3 year follow up ( see scanned report) Historical Provider HEALTH MAINTENANCE Edited Result - Final from Last 3 Months or Most Recently Relevant to Health Maintenance Insurance [facility] Care Teams Digital Photo Printer Relationship Specialty Start Date End Date Kevyn Samson MD [address] [place] [phone] PCP - General Internal Medicine 04/20/21
--- OUTSIDE RECORDS SUMMARY | 2025-06-29 18:18 | XMS_ITS | Encounter Summary ---
Author Organization [employer] Address [address] [facility] [address] [place] [address] Care Team Providers Care Window Shade Installer Name Role Phone Kevyn Samson MD Primary Care Provide r Reason for Visit * Reason Onset Date Comments Medication Question 06/05/2023 Encounter Details Date Type Department Care Team ([facility] st Contact Info) Description 06/05/2023 Refill [facility] [address] [place], [place] [phone] Kevyn Samson MD [address] [place], [place] [phone] Social History Tobacco Use Types Packs/Day Years Used Date Smoking Tobacco: Never Passive Smoke Exposure: Never Smokeless Tobacco: Never Depression Answer Date Recorded Patient Health Questionnaire-9 Score 2 12/26/2022 Housing Stability Answer Date Recorded What is your housing situation today? I have radha alvarado 06/01/[address] you li ve. Do you have problems with any of the following? None of the above 06/01/2023 Food Insecurity Answer Date Recorded Within the past 12 months, y ou worried that your food would run out before you got money to buy more: Never True 06/01/2023 Within the past 12 months,th e food you bought just didn't last and you didn't have enough money to get more: Never True 03/2023 Transportation Answer Date Recorded In the past 12 months, has l ack of transportation kept you from medical appts, meetings, work or from getting things needed for daily living? No 06/01/2023 Utilities Answer Date Recorded In the past 12 months, has t he electric, gas, oil or water company threatened to shut off services in your home? No 06/01/2023 Depression Answer Date Recorded Patient Health Questionnaire-2 Score 0 12/26/2022 Comments Unknown Sex and Gender Information Value Date Recorded Sex Assigned at Female 06/24/2022 10:17 AM EDT Legal Sex Female 10:17 AM EDT Gender Identity Female 06/24/2022 10:17 AM EDT Sexual Orientation Choose not to disclose 2021 10:17 AM EDT documented as of this encounter Miscellaneous Notes * Telephone Encounter - Leigh Jimenez - 06/05/2023 9:56 AM EDT Tc from pt would like to know if pcp can prescribe medication Antacid Calcium 500 MG chewable tablet. documented in this encounter Plan of Treatment Not on file documented as of this encounter Visit Diagnoses Not on filedocumented in this encounter Additional Health Concerns Assessment Noted Time PHQ-9 Depression Total Score: 2 12/27/19 23 9:28 AM EDT documented as of this encounter Care Teams Window Shade Installer Relationship Specialty Start Date End Date Kevyn Samson MD [address] [place] [phone] PCP - General Internal Medicine 04/20/21 documented as of this encounter
--- OUTSIDE RECORDS SUMMARY | 2025-06-29 18:18 | XMS_ITS ---
Author Organization [facility] Address [address] [place] [address] Care Team Providers Care Front Desk Admin Name Role Phone WhiteRaphael Kevyn Primary Care Provider + Active Problems Problem Noted Date Diagnosed Date Pulmonary nodule less than 6 mm determined by computed tomography of lung 11/13/2023 Postoperative hypothyroidism 04/24/2023 Overview (05/08/2023): Last Assessment & Plan: Pt already started on levothyroxine 125 mcg po daily Calcium Carbonate 3 tabs in Am and 3 tabs in PM Will check TSH Thyroid cancer 03/05/2023 Overview (03/31/2023): Confirmed via biopsy 02/2023 [facility], they are coordinating w/ pt for CT to eval for metastatic disease and for surgical planning Lymphadenopathy of right cervical region 023 Overview (03/31/2023): Last Assessment & Plan: Pt here for a follow up Back [...] CT showed: multiple pathologically enlarged heterogeneously enhancing right-sided cervical lymph nodes the majority of which [...] discussed with Dr. Guevara Pathologist at [facility] who mentioned the [...] with no success. I have asked our credit operations specialist to inquire for appointment availability with an ENT at [facility]. Follow up with me after ENT Will also refer to Endocrinology at [facility] Steatosis of liver 08/09/2020 Overview (03/31/2023): Last Assessment & Plan: Under the care of GI, Recent LFTs 05/27/2022 Normal Neoplasm of uncertain behavior of liver 03/29/20 20 Overview (03/31/2023): Last Assessment & Plan: see Previous MRI results 04/27/2020. ultimately determined to be a hemangioma; Tubular adenoma of colon 09/15/2019 Overview (03/31/2023): Last Assessment & Plan: Last colonoscopy done 10/30/2021 showed polyps and hemorrhoids Needs a repeat in 3 Yrs (2024) per GI recommendations Obstructive sleep apnea syndrome 08/08/2014 Overview (03/31/2023): Last Assessment & Plan: Pt here for a follow up She has CPAP but is nonadherent with it. Discussed the need to adhere to it Kidney stone 05/24/2013 Dyslipidemia 06/16/2012 Overview (03/31/2023): Last Assessment & Plan: Patient elevated lipids. Most recent lipid profile [...] with a personal goal for weight loss. Current Treatment and Therapy Plans No current plan information found. Past Treatment and Therapy Plans No past plan information found. Lifetime Dose Tracking * Chemical Lifetime Dose Automatic Entry Manual Entr y TotalDLP 533 mGy 533 mGy 0 mGy [id number] 12.9 mSv 12.9 mSv 0 mSv CTDIvol Max 16.3 mGy 16.3 mGy 0 mGy CTDIvol Min 16.3 mGy 16.3 mGy 0 mGy Resolved Problems Problem Noted Date Diagnosed Date Resolved Date Thyroid nodule 02/18/2023 05/08/2023 Overview (03/31/2023): Last Assessment & Plan: Thyroid U/S , this was done 01/30 showing a highly suspicious TR5 nodule right thyroid lobe with associated lymphadenopathy and U/S Guided biopsy done 02/12/2023 showed: Atypia of unknown significance. Afirma testing pending. Case discussed with Dr. Guevara Pathologist at [facility] who mentioned the [...] with no success. I have asked our credit operations specialist to inquire for appointment availability at [facility]. Follow up with me after ENT Will also refer to Endocrinology at [facility]. ENT at [facility] does not have availability
--- OUTSIDE RECORDS SUMMARY | 2025-06-29 18:18 | XMS_ITS | Encounter Summary ---
Author Organization [facility] Address [address] [place] [address] Care Team Providers Care Satellite Installation Technician Name Role Phone Kevyn Hdz Primary Care Provider + Encounter Details Date Type Department Care Team (Late st Contact Info) Description 08/11/2023 Orders Only [facility] Nuclear Medicine [address], [place] [phone] Jameson Barr MD [address] [place] [address] Social History Tobacco Use Types Packs/Day Years [...] on filedocumented in this encounter Care Teams Satellite Installation Technician Relationship Specialty Start Date End Date Kevyn Hdz [address] [place] [address] PCP - General Internal Medicine 02/17/23 documented as of this encounter
--- OUTSIDE RECORDS SUMMARY | 2025-06-29 18:18 | XMS_ITS | Encounter Summary ---
Author Organization [employer] Address [address] [facility] 7t [place] [address] Care Team Providers Care Blend Plant Operator Name Role Phone Kevyn Samson MD Primary Care Provide r Encounter Details Date Type Department Care Team (Late st Contact Info) Description 12/12/2022 Orders Only [facility] CHC MED & PEDS [address] [place] [address] Kat Glasgow LPN Social History Tobacco Use Types Packs/Day Years Used Date Smoking Tobacco: Never Assessed Comments Unknown Sex and Gender Information Value Date Recorded Sex Assigned at Female 06/24/2022 10:17 AM EDT Legal Sex Female 10:17 AM EDT Gender Identity Female 06/24/2022 10:17 AM EDT Sexual Orientation Choose not to disclose 2021 10:17 AM EDT documented as of this encounter Plan of Treatment Not on file documented as of this encounter Visit Diagnoses Not on filedocumented in this encounter Care Teams Blend Plant Operator Relationship Specialty Start Date End Date Kevyn Samson MD [address] [place] [id number] PCP - General Internal Medicine 04/20/21 documented as of this encounter
--- OUTSIDE RECORDS SUMMARY | 2025-06-29 18:18 | XMS_ITS | Encounter Summary ---
Author Organization [employer] Address [address] [facility] 7t [place] [address] Care Team Providers Care Track Welder Name Role Phone Kevyn Samson MD Primary Care Provide r Encounter Details Date Type Department Care Team (Late st Contact Info) Description 10/16/2022 Orders Only [facility] CHC MED & PEDS [address] [place] [address] Kat Glasgow LPN Social History Tobacco Use [...] on filedocumented in this encounter Care Teams Track Welder Relationship Specialty Start Date End Date Kevyn Samson MD [address] [place] [id number] PCP - General Internal Medicine 04/20/21 documented as of this encounter
--- OUTSIDE RECORDS SUMMARY | 2025-06-29 18:18 | XMS_ITS | Encounter Summary ---
Author Organization [employer] Address [address] [facility] [address]t [place] [address] Care Team Providers Care Blasting Entryman Name Role Phone Kevyn Samson MD Primary Care Provide r Encounter Details Date Type Department Care Team (Late st Contact Info) Description 12/27/2022 Abstract [facility] MEDICINE [address] [place], [place] [phone] Kevyn Samson MD [address] [place], [place] [phone] Social History Tobacco Use Types Packs/Day Years Used Date Smoking Tobacco: Never Passive Smoke Exposure: Never Smokeless Tobacco: Never Depression Answer Date Recorded Patient Health Questionnaire-9 Score 2 12/26/2022 Depression Answer Date Recorded Patient Health Questionnaire-2 Score 0 12/26/2022 Comments Unknown Sex and Gender Information Value Date Recorded Sex Assigned at Female 06/24/2022 10:17 AM EDT Legal Sex Female 10:17 AM EDT Gender Identity Female 06/24/2022 10:17 AM EDT Sexual Orientation Choose not to disclose 2021 10:17 AM EDT COVID-19 Exposure Response Date Recorded In the last 10 days, have yo u been in contact with someone who was confirmed or suspected to have Coronavirus/COVID-19? No / Unsure 12/26/2022 9:05 AM EDT documented as of this encounter Plan of Treatment Not on file documented as of this encounter Procedures Procedure Name Priority Date/Time Associated Diagnosis Comments COLONOSCOPY Routine 10/30/2021 documented in this encounter Results * Colonoscopy (10/30/2021) Colonoscopy Normal Normal 10/30/2021 Narrative Arelis Brooks - 10/30/2021 1:16 PM EST Recommended 3 year follow up ( see scanned report) us Historical Provider HEALTH MAINTENANCE Edited Result - Final documented in this encounter Visit Diagnoses Not on filedocumented in this encounter Additional Health Concerns Assessment Noted Time PHQ-9 Depression Total Score: 2 12/27/19 23 9:28 AM EDT documented as of this encounter Care Teams Blasting Entryman Relationship Specialty Start Date End Date Kevyn Samson MD [address] [place] [phone] PCP - General Internal Medicine 04/20/21 documented as of this encounter
--- OUTSIDE RECORDS SUMMARY | 2025-06-29 18:18 | XMS_ITS | Encounter Summary ---
Author Organization [employer] Address [address] [facility] 7t [place] [address] Care Team Providers Care Package Car Driver Name Role Phone Kevyn Samson MD Primary Care Provide r Encounter Details Date Type Department Care Team (Latest Contact Info) Description 07/27/2021 Abstract [facility] CONVERSIONS Dental, Provider, DDS Social History Tobacco Use Types Packs/Day Years [...] on filedocumented in this encounter Care Teams Package Car Driver Relationship Specialty Start Date End Date Kevyn Samson MD [address] [place] [id number] PCP - General Internal Medicine 04/20/21 documented as of this encounter
--- OUTSIDE RECORDS SUMMARY | 2025-06-29 18:18 | XMS_ITS | Clinical Summary ---
Author Organization [facility] Address [address] [facility] [address] [place] [phone] Phone Care Team Providers Care Biomed Tech Name Role Phone Kevyn Hdz MD Primary Care Provide r Allergies Active Allergy Reactions Criticality Noted Date Comments Acetaminophen Hepatitis Medium 02/04/2024 Oxycodone Nausea and/or Vomiting 02/04/2024 Medications cyclobenzaprine (FLEXERIL) 10 MG tablet Take 1 tablet (10 mg total) by mouth 3 (three) times a day as needed. 20 tablet 02/05/2024 Active Social History Tobacco Use Types Packs/Day Years [...] Don't know 02/04/2024 9: 19 PM EDT Last Filed Vital Signs Vital Sign Reading Time Taken Comments Blood Pressure 159/78 02/05/2024 12:17 AM EDT Pulse 65 02/05/2024 12:17 AM EDT Temperature 36.5 C (97.7 F) 02/04/2024 6:38 PM EDT Respiratory Rate 16 02/05/2024 12:17 AM EDT Oxygen Saturation 98% 02/05/2024 12:17 AM EDT Inhaled Oxygen Concentration - - Weight 65.8 kg (145 lb) 02/04/2024 6:38 PM EDT Height 157.5 cm (5' 2 ) 02/04/2024 6:38 PM EDT Body Mass Index 26.52 02/04/2024 6:38 PM EDT Plan of Treatment Health Maintenance Due Date Last Done Comments LIPID PANEL 1962 DEPRESSION SCREENING 1974 SMOKING Hx and SMOKELESS TOBACCO SCREENING 1975 HEPATITIS C SCREENING 1980 HIV ONE-TIME SCREENING (18-6 5 YEARS) 1980 PAP SMEAR 1983 SCREENING FOR DIABETES 1997 COLOGUARD 2007 COLONOSCOPY 2007 COLORECTAL CANCER SCREENING 2007 FIT TEST 2007 FOBT 2007 SIGMOIDOSCOPY 2007 VIRTUAL COLONOSCOPY 2007 PNEUMOCOCCAL VACCINES (50+ years) (1 of 1 - PCV) 2012 ZOSTER VACCINES (1 of 2) 2012 INFLUENZA VACCINE (#1) 2025 COVID-19 VACCINE (1 - 2024-2 6 season) 2025 MAMMOGRAM 07/04/2025 07/04/2023, 07/04/2023, 10/21/2018 Adult Td,Tdap Booster 02/20/2027 02/20/2017 RSV VACCINE (1 - 1-dose 75+ series) 2037 HEPATITIS A VACCINES Aged Out No long er eligible based on patient's age to complete this topic HIB VACCINES Aged Out No longer eligi ble based on patient's age to complete this topic MENINGOCOCCAL VACCINES (ACWY) Aged Out No longer eligible based on patient's age to complete this topic MENINGOCOCCAL VACCINES (B) Aged Out N o longer eligible based on patient's age to complete this topic Medical Devices Not on file Insurance C3 ACO C3 ACO C3 ACO C3 ACO C3 ACO C3 ACO Care Teams Biomed Tech Relationship Specialty Start Date End Date Kevyn Hdz MD [address] [place] [address] [address] [place] [phone] PCP - General Internal Medicine 02/04/24 Additional Source Comments The information contained in this document represents components of the legal health record. It is not the complete legal health record.[facility]
--- OUTSIDE RECORDS SUMMARY | 2025-06-29 18:18 | XMS_ITS | Clinical Summary ---
Author Organization [facility] Address [address] [place] [address] Care Team Providers Care Batch Records Clerk Name Role Phone Kevyn Hdz Primary Care Provider + Allergies Active Allergy Reactions Criticality Noted Date Comments Acetaminophen Hepatitis High 12/26/2022 Oxycodone Nausea 12/26/2022 Medications omeprazole (PriLOSEC) 20 mg capsule SMARTSI Capsule(s) By Mouth Daily PRN 3 Active ascorbic acid (VITAMIN C) 500 mg tablet Take 500 mg by mouth once a day. Active cholecalciferol (VITAMIN D3) 1,000 unit tablet SMARTSI Tablet(s) By Mouth Daily 4 Active hydrOXYzine (VISTARIL) 25 mg capsule Take 25 mg by mouth. 4 Active levothyroxine (SYNTHROID, LEVOTHROID) 112 mcg tabletIndications:P ostoperative hypothyroidism Take 1 tablet (112 mcg total) by mouth once a day. 90 tablet 3 4 Active Active Problems Problem Noted Date Diagnosed Date Pulmonary nodule less than 6 mm determined by computed tomography of lung 11/13/2023 Postoperative hypothyroidism 04/24/2023 Overview (05/08/2023): Last Assessment & Plan: Pt already started on levothyroxine 125 mcg po daily Calcium Carbonate 3 tabs in Am and 3 tabs in PM Will check TSH Thyroid cancer 03/05/2023 Overview (03/31/2023): Confirmed via biopsy 02/2023 [facility], they are coordinating w/ pt for [...] Case discussed with Dr. Guevara Pathologist at [facility] who mentioned the testing could take from [...] with no success. I have asked our erp specialist to inquire for appointment availability with an ENT at [facility]. Follow up with me after ENT Will also refer to Endocrinology at [facility] Steatosis of liver 08/09/2020 Overview (03/31/2023): Last Assessment & Plan: Under the care of GI, Recent LFTs 05/27/2022 Normal Neoplasm of uncertain behavior of liver 03/29/20 Overview (03/31/2023): Last Assessment & Plan: see [...] Case discussed with Dr. Guevara Pathologist at [facility] who mentioned the testing could take from [...] with no success. I have asked our erp specialist to inquire for appointment availability at [facility]. Follow up with me after ENT Will also refer to [place]in[place] [facility] ENT at [facility] does not have availability Immunizations Immunization Administration Dates Next Due Hepatitis A Vaccine, Adult Dosage 07/12/2019, Hepatitis B adult (ENGERIX-B ADULT) vaccine 1 mL IM 12/09/2007,11/09/2007 Influenza, Injectable, Madin Heather Canine Kidney, Preservative Free, Quadrivalent 07/26/2020 Influenza, Injectable, Quadrivalent, Preservativ e Free 01/28/2023,07/12/2019 Tetanus Toxoid, Reduced Diph theria Toxoid, and Acellular Pertussis Vaccine, Adsorbed 02/20/2017 Family History Medical History Relation Name Comments No Known Problems Daughter 1 No Known Problems Daughter 2 Heart disease Father Lung cancer Mother Relation Name Status Comments Daughter 1 Alive Daughter 2 Alive Father Alive Mother Social History Tobacco Use Types Packs/Day Years Used Date Smoking Tobacco: Never Smokeless Tobacco: Never Tobacco Cessation:Counseling Given: Not Answered Alcohol Use Standard Drinks/Week Comments Not Currently 0 (1 standard drink = 0.6 oz pur e alcohol) Comments No Sex and Gender Information Value Date Recorded Sex Assigned at Female 04/06/2024 9:30 AM EDT Legal Sex Female 3:30 PM EDT Gender Identity Not on file Sexual Orientation Not on file Last Filed Vital Signs Vital Sign Reading Time Taken Comments Blood Pressure 142/93 03/04/2024 4:35 PM EDT Pulse 65 03/04/2024 4:35 PM EDT Temperature 36.7 C (98.1 F) 04/08/2023 10:30 AM EDT Respiratory Rate 18 07/11/2023 10:45 AM EST Oxygen Saturation 99% 07/11/2023 10:45 AM EST Inhaled Oxygen Concentration - - Weight 66.3 kg (146 lb 3.2 oz) 03/04/2024 4:35 P M EDT Height 157.5 cm (5' 2.01 ) 11/13/2023 2:08 PM ED T Body Mass Index 26.73 11/13/2023 2:08 PM EDT Plan of Treatment Health Maintenance Due Date Last Done Comments Cologuard 1962 Colon Cancer Screening 1962 Colonoscopy 1962 FOBT / Fit Test 1962 HIV Screening 1962 Hepatitis C Screening 1962 Sigmoidoscopy 1962 COVID-19 Vaccine (#1) 1967 Pneumococcal Vaccine: 50+ Ye ars (1 of 2 - PCV) 1981 Zoster Vaccines (1 of 2) 1981 Hepatitis B Vaccines (3 of 3 - 19+ 3-dose series) 05/11/2008 12/09/2007, 11/09/2007 Alcohol/Substance Use Screening 08/25/2024 Depression Screening and Follow-Up 08/25/2024 Social Drivers of Health Sara ual Screening 08/25/2024 Influenza Vaccine (#1) 2025 , 07/26/2020, 07/12/2019 Mammogram 07/04/2025 07/04/2023, 06/25, 10/21/2018 DTaP,Tdap,and Td Vaccines (2 - Td or Tdap) 02/20/2027 02/20/2017 RSV Vaccine (60+ years old a nd patients) (1 - 1-dose 75+ series) 2037 Insurance [facility] Advance Directives * Presumed Full Code (Latest Code Status on File) Date Activated Date Inactivated Comments 04/07/2023 6:05 AM 04/08/2023 5:51 PM Care Teams Batch Records Clerk Relationship Specialty Start Date End Date Kevyn Hdz [address] [place] [address] PCP - General Internal Medicine 02/17/23
--- OUTSIDE RECORDS SUMMARY | 2025-06-29 18:18 | XMS_ITS | Encounter Summary ---
Author Organization [employer] Address [address] [facility] 7t [place] [address] Care Team Providers Care Tsa Screener Name Role Phone Kevyn Samson MD Primary Care Provide r Encounter Details Date Type Department Care Team (Latest Contact Info) Description 10/18/2019 Abstract [facility] CONVERSIONS Dental, Provider, DDS Social [...] on filedocumented in this encounter Care Teams Tsa Screener Relationship Specialty Start Date End Date Kevyn Samson MD [address] [place] [id number] PCP - General Internal Medicine 04/20/21 documented as of this encounter
--- OUTSIDE RECORDS SUMMARY | 2025-06-29 18:18 | XMS_ITS | Encounter Summary ---
Author Organization [employer] Address [address] [facility] 7t [place] [address] Care Team Providers Care Vegetable Tier Name Role Phone Kevyn Samson MD Primary Care Provide r Encounter Details Date Type Department Care Team (Latest Contact Info) Description 09/18/2018 Abstract [facility] CONVERSIONS Dental, Provider, DDS Social History Tobacco [...] on filedocumented in this encounter Care Teams Vegetable Tier Relationship Specialty Start Date End Date Kevyn Samson MD [address] [place] [id number] PCP - General Internal Medicine 04/20/21 documented as of this encounter
--- OUTSIDE RECORDS SUMMARY | 2025-06-29 18:19 | XMS_ITS | Encounter Summary ---
Author Organization [employer] Address [address] [facility] 7t [place] [address] Care Team Providers Care Vmware Engineer Name Role Phone Kevyn Samson MD Primary Care Provide r Reason for Visit * Reason Onset Date Comments Other 01/08/2023 Encounter Details Date Type Department Care Team ([facility] st Contact Info) Description 01/08/2023 Telephone [facility] MEDICINE [address] [place], [place] [phone] Kevyn Samson MD [address] [place], [place] [phone] Other Social History Tobacco Use Types Packs/Day Years [...] encounter Miscellaneous Notes * Telephone Encounter - Misty Casareznez - 01/08/2023 10:37 AM EDT Tc from patient calling in regards to CT soft tissue neck w and w/o contrast from 12/26/22. States she called the office where they informed her they still need paperwork from PCP's office to be able to schedule her. Presidential Support Specialist offered to fax order and patient stated it's not the order but she was unsureof what other paperwork needs to be sent. Please advise. Patient speaks luxembourgish. documented in this encounter Plan of Treatment Not on file documented as of this encounter Visit Diagnoses Not on filedocumented in this encounter Additional Health Concerns Assessment Noted Time PHQ-9 Depression Total Score: 2 12/27/19 23 9:28 AM EDT documented as of this encounter Care Teams Vmware Engineer Relationship Specialty Start Date End Date Kevyn Samson MD [address] [place] [address] PCP - General Internal Medicine 04/20/21 documented as of this encounter
== END 2025-06-29 16:29 | disposition home or self-care (01) ==
LOC: HO.ENCR 15:23
PROVIDERS: PCP Internal Medicine; Visit Provider Student in an Organized Health Care Education/Training Program
DX: Z85.850 Personal history of malignant neoplasm of thyroid (principal)
CPT/HCPCS: 99205

== ENCOUNTER → 2025-06-29 15:22 | Outpatient (BNVA) | payer OTHER, SELFPAY | PROVIDERS: PCP Internal Medicine; Visit Provider Student in an Organized Health Care Education/Training Program | DX: E03.9 Hypothyroidism, unspecified (principal); Z85.850 Personal history of malignant neoplasm of thyroid; R91.8 Other nonspecific abnormal finding of lung field | CPT/HCPCS: 99202 ==

== ENCOUNTER 2025-07-18 09:34 | Outpatient (REF) | payer OTHER, SELFPAY ==
[2025-07-18 14:54] LABS: Free T4 (Free Thyroxine) 1.28 ng/dL (0.71-1.85); Thyroid Stimulating Hormone < 0.01 uIU/mL (0.32-4.0)
[2025-07-19 22:33] LABS: Thyroglobulin Antibodies <1 IU/mL (< or = 1)
== END 2025-07-18 09:35 | disposition home or self-care (01) ==
LOC: HO.LAB 09:34
PROVIDERS: Absent Provider Student in an Organized Health Care Education/Training Program; PCP Internal Medicine; Visit Provider Internal Medicine Gastroenterology
DX: K63.5 Polyp of colon (principal); K21.9 Gastro-esophageal reflux disease without esophagitis; K59.00 Constipation, unspecified; K74.69 Other cirrhosis of liver; K75.81 Nonalcoholic steatohepatitis (NASH); Z85.850 Personal history of malignant neoplasm of thyroid
CPT/HCPCS: 36415; 84432; 84439; 84443; 86800; 99212

== ENCOUNTER 2025-07-18 09:34 | Outpatient (AMB) | payer OTHER, SELFPAY ==
[2025-07-18 09:43] VITALS: BP 137/75; PULSE 63; BMI 27.3
--- NOTE | 2025-07-18 09:43 | MHC.OFFVIS ---
Vital Signs 07/18/25 09:43 Height 5 ft 2 in Weight 149 lb 7.574 oz BMI 27.3 BP 137/75 Blood Pressure Location Lt brachial Position Sitting Pulse 63 Intake Visit Reasons: colo screening Intake Note: Patient in office today for colonoscopy screening. CC: Patient reports a lot of gas. She states that she d/c the omeprazole and is now taking natural teas. She also reports heartburn, and soft stools with hard small tools. Application Security Consultant Required: Yes Application Security Consultant Language: Senior Ui Ux Developer Name: [facility] analytical scientist Allergies acetaminophen (ACETAMINOPHEN) Allergy (Intermediate, Verified 07/18/25 09:49) Shows Hepitis when takes too much oxycodone (OXYCODONE) Allergy (Intermediate, Verified 07/18/25 09:49) GI UPSET HPI HPI colo screening: Details: 65 yr old f w/ hx of thyroid ca and thyroidectomy here for f/u ? RECAP: ? she was having epigastric pain ? EGD 03/2019--with chronic gastritis, no h pylori, relfux esophagitis on path ? on omeprazole, ? lots of stess in home life ? overall feels 70% improved ? no dysphagia, epigastric pain gone ? seeing urology for renal stones ? no more blood in stool but has abn bowel habit, going several times to toilet, 4-5 times going on for a while, no tenesmus ? colonoscopy--08/2019-- sessile polyp right colon--tubular adenoma, moderate hemorrhoids, tortuous colon ? rept 1-2 yrs due to prep ? she had CT scan in ED? after going for abdo pain, dialted appendix noted, ?liver hemangioma, steatosis ? labs with mild raised alt,ast, nml cbc--neg AMA, JOVANNY, rept labs 06/2021-- nml LFT ? MRI 04/2020-- diffuse steatosis, hemangioma, no gallstones, renal cysts incl hemorrhagic I had arranged Mr defocgraphy but she was unable to do it US 01/2021-- renal calculi, diffuse steatosis, Colonoscopy: 2021-- Polyp lesion removed from cecum and DC, path with adenoma, no dysplasia, small internal hemorrhoids US 11/2022-- mild steatosis, elastography 1.35 INTERIM: she has issues with constipation has to move her anus in certai direction and then push and stool comes out going out for 3 years now she has bloating no n/v ? EXAM: GENERAL: The patient is well developed and nontoxic. VITAL SIGNS:see workflow HEENT: Nonicteric sclerae, PERRLA, EOMI. Oropharynx clear. Moist mucous membranes. Conjunctivae appear well perfused. No thyroid mass.--scar over lower neck noted CHEST: Chest wall is nontender. HEART: Regular rate and rhythm without murmurs. LUNGS: Clear to auscultation bilaterally. ABDOMEN: Soft, positive bowel sounds, nontender, no organomegaly.no flank tenderness SKIN: No rash, no excessive bruising, petechiae, or purpura. NEUROLOGIC: Cranial nerves II-XII intact without motor/sensory deficit. Assessments ? 1. AVALOS, Mild 2. possible rectocele or pelvic floor prolapse? 3/ bloaitng, ? SIBO, CHO intolerance PLAN: 1/ US liver 2/cont with PPi 3/ repeat colonoscopy now and add EGD with bx for disaccharidases --suprep 4/ advised try fiber gummies, and high fiber diet 5/ try to get Mr defecography again at [facility] Medical History Family history of breast cancer Hemorrhoids with complication Gastroesophageal reflux disease Steatosis Elevated liver enzymes Surgical History Hx of thyroidectomy Hx of endoscopy Hx of colonoscopy History of hysterectomy Family History Father Hypercholesterolemia Mother Hypertension Osteoporosis Arthritis Social History Household Members Other:: lives with father Alcohol intake: former Patient Tobacco Use Status: Never used Tobacco Current occupational status: employed 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 Physical Exam Vital Signs: Last Vital Signs Pulse 63 07/18/25 09:43 BP 137/75 07/18/25 09:43 BMI result Body Mass Index 27.3 Assessment & Plan Assessment & Plan (1) Gastroesophageal reflux disease: Code(s): K21.9 - Gastro-esophageal reflux disease without esophagitis Category: Medical Plan: as above (2) Colon polyp: Code(s): K63.5 - Polyp of colon Category: Medical Plan: as above (3) Constipation: Code(s): K59.00 - Constipation, unspecified Category: Medical Plan: as above Orders: Orders US abdomen walker w elastography Today K74.69 - Other cirrhosis of liver, K75.81 - Nonalcoholic steatohepatitis (AVALOS) MR pelvis wo con Today K59.00 - Constipation, unspecified Referrals GI Procedure Notification K21.9 - Gastro-esophageal reflux disease without esophagitis, K63.5 - Polyp of colon Medications: New sodium,potassium,mag sulfates 17.5-3.13-1.6 gram (Suprep Bowel Prep Kit) DILUTE; drink 1/2 at 6-8 pm and half at 11 PM- 1AM 354 mL 0RF Coding Level of Care Code Est Pt Level 4 (44963) Diagnoses Gastroesophageal reflux disease K21.9 Colon polyp K63.5 Constipation K59.00
--- OUTSIDE RECORDS SUMMARY | 2025-07-18 11:02 | XMS_ITS | Encounter Summary ---
Author Organization [facility] Address [address] [facility] [address] [place] [phone] Phone Care Team Providers Care Technical Administrator Name Role Phone Kevyn Hdz MD Primary Care Provide r Encounter Details Date Type Department Care Team (Late st Contact Info) Description 02/04/2024 Procedure [facility], Ct Scan - [address] [address] Social History Tobacco Use Types Packs/Day Years [...] 6:40 PM EDT Arianne Swain RN * [place] Suicide Severity Rating Scale (Screener/Recent Self-Report) Question [...] on filedocumented in this encounter Care Teams Technical Administrator Relationship Specialty Start Date End Date Kevyn Hdz MD [address] [place] [address] [address] [place] [phone] [email or web address] PCP - General Internal Medicine 02/04/24 documented as of this encounter Additional Source Comments The information contained in this document represents components of the legal health record. It is not the complete legal health record.[facility]
--- OUTSIDE RECORDS SUMMARY | 2025-07-18 11:02 | XMS_ITS | Encounter Summary ---
Author Organization [employer] Address [address] [facility] 7t [place] [address] Care Team Providers Care Disease Control Inspector Name Role Phone Kevyn Samson MD Primary Care Provide r Encounter Details Date Type Department Care Team (Latest Contact Info) Description 07/27/2021 Abstract [facility] CONVERSIONS Dental, Provider, DDS Social History Tobacco [...] on filedocumented in this encounter Care Teams Disease Control Inspector Relationship Specialty Start Date End Date Kevyn Samson MD [address] [place] [phone] PCP - General Internal Medicine 04/20/21 documented as of this encounter
--- OUTSIDE RECORDS SUMMARY | 2025-07-18 11:02 | XMS_ITS | Encounter Summary ---
Author Organization [employer] Address [address] [facility] 7t [place] [address] Care Team Providers Care Athletic Events Scorer Name Role Phone Kevyn Samson MD Primary Care Provide r Encounter Details Date Type Department Care Team (Latest Contact Info) Description 10/18/[address] [facility] CONVERSIONS Dental, Provider, DDS Social [...] on filedocumented in this encounter Care Teams Athletic Events Scorer Relationship Specialty Start Date End Date Kevyn Samson MD [address] [place] [address] PCP - General Internal Medicine 04/20/21 documented as of this encounter
--- OUTSIDE RECORDS SUMMARY | 2025-07-18 11:02 | XMS_ITS | Encounter Summary ---
Author Organization [employer] Address [address] [facility] 7t [place] [address] Care Team Providers Care Evp Name Role Phone Kevyn Samson MD Primary Care Provide r Encounter Details Date Type Department Care Team (Late st Contact Info) Description 12/12/2022 Orders Only [facility] MED & PEDS [address] [place] [address] Kat Glasgow LPN Social History Tobacco Use [...] on filedocumented in this encounter Care Teams Evp Relationship Specialty Start Date End Date Kevyn Samson MD [address] [place] [address] PCP - General Internal Medicine 04/20/21 documented as of this encounter
--- OUTSIDE RECORDS SUMMARY | 2025-07-18 11:02 | XMS_ITS | Encounter Summary ---
Author Organization [employer] Address [address] [facility] [address]t [place] [address] Care Team Providers Care Bee Raiser Name Role Phone Kevyn Samson MD Primary Care Provide r Encounter Details Date Type Department Care Team (Latest Contact Info) Description 09/18/2018 Abstract [facility] CONVERSIONS Dental, Provider, DDS Social History Tobacco [...] on filedocumented in this encounter Care Teams Bee Raiser Relationship Specialty Start Date End Date Kevyn Samson MD [address] [place] [phone] PCP - General Internal Medicine 04/20/21 documented as of this encounter
--- OUTSIDE RECORDS SUMMARY | 2025-07-18 11:02 | XMS_ITS | Encounter Summary ---
Author Organization [employer] Address [address] [facility] 7t [place] [address] Care Team Providers Care Compacting Machine Operator/Tender Name Role Phone Kevyn Samson MD Primary Care Provide r Encounter Details Date Type Department Care Team (Late st Contact Info) Description 10/16/2022 Orders Only [facility] CHC MED & PEDS [address] [place] [address] Kat Glasgow LPN Social History Tobacco Use [...] on filedocumented in this encounter Care Teams Compacting Machine Operator/Tender Relationship Specialty Start Date End Date Kevyn Samson MD [address] [place] [phone] PCP - General Internal Medicine 04/20/21 documented as of this encounter
--- OUTSIDE RECORDS SUMMARY | 2025-07-18 11:02 | XMS_ITS | Clinical Summary ---
Author Organization [employer] Address [address] [facility] 7t [place] [address] Care Team Providers Care Watch Inspector Final Movement Name Role Phone Kevyn Samson MD Primary [...] HEARTBURN 90 tablet 3 12/19/19 24 Active ketorolac (Acular) 0.4 % ophthalmic solutionIndication s:Subconjunctival hemorrhage of left eye,Blurry vision, bilateral Administer 1 drop into the left eye 4 times daily. 5 mL 04/12/20 24 Active cetirizine (ZyrTEC) 10 MG tabletIndications: Seasonal allergies Take 1 tablet (10 mg) by mouth Once per day. 30 tablet 2 02/04/20 25 Active fluticasone (Flonase) 50 MCG/ACT nasal sprayIndications:S easonal allergies Administer 1-2 sprays into each nostril Once per day. Shake gently. Before first use, prime pump. After use, clean tip and replace cap. 16 g 2 02/04/20 25 026 Active cholecalciferol (Vitamin D-3) 25 MCG tabletIndications: Other fatigue TAKE 1 TABLET BY MOUTH EVERY DAY 90 tablet 3 02/10/20 25 Active rosuvastatin (Crestor) 10 MG tabletIndications: Dyslipidemia Take 1 tablet (10 mg) by mouth Once per day. 30 tablet 3 07/12/2025 3:43 PM EST 06/09/20 25 026 Active levothyroxine (Synthroid, Levoxyl) 112 MCG tabletIndications: Postoperative hypothyroidism Take 1 tablet (112 mcg) by mouth Once per day. 90 tablet 1 06/09/20 Active Active Problems Problem Noted Date Diagnosed [...] (03/04/2024 8:53 AM EDT): Pt seen at [facility] 01/24/2024, she presented to the ED [...] symptoms. She prefers to be self-referred to [facility] in [place] and will follow-up with clinician during next medical appointment. PLAN: (check all that apply) Behavioral Health Integration Plan Patient Self Plan Patient to utilize skills provided in intervention , Patient to reach out to [facility] team as needed, Comply with medication , and Patient to reach out to [facility] as needed Self-referred to [facility] program in [place]. Assessment & Plan (02/09/2024 4:18 PM EDT): [...] a traumatic experience. Omayra presented to the [facility] for a follow-up. She was [...] She is open to do follow-up with [facility] clinician during next medical appointment with Dr. White. PLAN: (check all that apply) Behavioral Health Integration Plan Internal Follow up with [facility] Patient Self Plan Patient to utilize skills provided in intervention , Patient to reach out to [facility] team as needed, Comply with medication , and Patient to reach out to [facility] as needed Anxiety 02/09/2024 Assessment & Plan (06/15/2024 12:11 PM EDT): Feels good Seen by our [facility] clinician, She presented with Acute Stress [...] prefers to be self-referred to [facility] in [place] and will follow-up with clinician during next medical appointment. PLAN: (check all that apply) Behavioral Health Integration Plan Patient Self Plan Patient to utilize skills provided in intervention , Patient to reach out to [facility] team as needed, Comply with medication , and Patient to reach out to [facility] as needed Self-referred to [facility] program in [place]. Assessment & Plan (03/04/2024 10:28 AM EDT): Seen by our [facility] clinician, She presented with Acute Stress [...] a traumatic experience. Omayra presented to the [facility] for a follow-up. She was [...] She is open to do follow-up with [facility] clinician during next medical appointment with Dr. White. PLAN: (check all that apply) Behavioral Health Integration Plan Internal Follow up with [facility] Patient Self Plan Patient to utilize skills provided in intervention , Patient to reach out to [facility] team as needed, Comply with medication , and Patient to reach out to [facility] as needed Other fatigue 07/08/2023 Assessment & Plan (07/08/2023 11:59 AM EST): Pt with c/o feeling fatigued ever since her thyroidectomy. Vital signs and weight remain stable, exam unremarkable Plan: Obtain CBC, TSH, PTH, CMP Pt has follow up with Firmware Test Engineer next month Follow up with me afterwards [...] on levothyroxine 112 mcg po daily by Firmware Test Engineer Last seen 03/04/[address] motley. She cannot continue to see them at [facility] Will refer to Local Firmware Test Engineer S/p radioactive iodine treatment Will continue to prescribe her Levothyroxine for now Assessment & Plan (02/03/2025 2:28 PM EDT): Pt on levothyroxine 112 mcg po daily by her Firmware Test Engineer Last seen 03/04/[address] motley S/p radioactive iodine treatment Assessment & Plan (06/15/2024 11:54 AM EDT): Pt on levothyroxine 112 mcg po daily by her Firmware Test Engineer Last seen 03/04/[address] motley S/p radioactive iodine treatment Assessment & Plan (03/04/2024 10:21 AM EDT): Pt on levothyroxine 112 mcg po daily by her Firmware Test Engineer Last seen 11/13/[address] motley S/p radioactive iodine treatment Has a follow up today Assessment & Plan (11/18/2023 10:29 AM EDT): Pt on levothyroxine 125 mcg po daily by her Firmware Test Engineer Last seen 11/13/[address] motley S/p radioactive iodine treatment Assessment & Plan (09/09/2023 10:13 AM EST): Pt on levothyroxine recently lowered to 125 mcg po daily by her Firmware Test Engineer She has a follow up with Endocrinology she is scheduled to receive radioactive iodine treatment Assessment & Plan (05/29/2023 4:15 PM EDT): Pt on levothyroxine recently increased to 137 mcg po daily by her Firmware Test Engineer Pt feels ever since the dose was [...] 03/05/2023 Overview (03/05/2023): Confirmed via biopsy 02/2023 [facility], they are coordinating w/ pt for CT to eval for metastatic disease and for surgical planning Assessment & Plan (06/09/2025 2:26 PM EDT): Patient is here for a f/u. S/P radioactive iodine treatment 09/15/[address] Motley 03/04/2024 Unable to continue to follow at [facility] Will refer to local acid strength inspector She is s/p total thyroidectomy April 07, [...] is under the care of Dr Motley Firmware Test Engineer at [facility] who counseled her about the [...] is under the care of Dr Motley Firmware Test Engineer at [facility] who counseled her about the [...] is under the care of Dr Shoemaker Firmware Test Engineer at [facility] who counseled her about the [...] is under the care of Dr Shoemaker Firmware Test Engineer at [facility] who counseled her about the [...] is under the care of Dr Shoemaker Firmware Test Engineer at [facility] who counseled her about the [...] is under the care of Dr Shoemaker Firmware Test Engineer at [facility] who counseled her about the [...] is under the care of Dr Shoemaker Firmware Test Engineer at [facility] who counseled her about the [...] present. Pt is already scheduled to see acid strength inspector 05/08/2023 Dr Shoemaker at [facility] for likely SPRAGUE treatment Pt [...] discussed with Dr. Guevara Pathologist at [facility] who mentioned the testing [...] with no success. I have asked our copy center specialist to inquire for appointment availability with ENT at [facility]. Follow up with me after ENT Will also refer to Endocrinology at [facility] Assessment & Plan (01/28/2023 8:53 AM EDT): [...] of the neck 4 week follow up [facility] health care 12/25/2022 Assessment & Plan (06/09/2025 [...] discussed with Dr. Guevara Pathologist at [facility] who mentioned the testing [...] with no success. I have asked our copy center specialist to inquire for appointment availability at [facility]. Follow up with me after ENT Will also refer to Endocrinology at [facility]. ENT at [facility] does not have availability [...] discussed with Dr. Guevara Pathologist at [facility] who mentioned the testing [...] with no success. I have asked our copy center specialist to inquire for appointment availability with an ENT at [facility]. Follow up with me after ENT Will also refer to Endocrinology at [facility] Assessment & Plan (01/28/2023 12:36 PM EDT): [...] Description 06/09/2025 2:15 PM EDT Office Visit [address] [address] Kevyn Samson MD Dyslipidemia (Primary Dx); Postoperative hypothyroidism; Tubular adenoma of colon; Impaired fasting glucose; Hx of papillary thyroid carcinoma; Overweight (BMI 25.0-29.9); Preventative health care; Dietary counseling; Exercise counseling; Encounter for immunization 06/09/2025 Travel 06/08/[address] [address] Kevyn Samson MD chart prep 05/19/2025 Orders Only [address] [address] Kevyn Samson MD Postoperative hypothyroidism (Primary Dx) 05/16/[address] [address] Kevyn Samson MD Medication Question from Last 3 Months Immunizations Immunization Administration [...] FOBT 1960 HIV Screening 1960 Sigmoidoscopy 1960 Disability Screening 1962 Alcohol/Substance Use Screening 1974 Hepatitis B Vaccines (3 of 3 - Risk 3-dose series) 05/11/2008 12/09/2007, 11/09/2007 RSV Patients and Patients Aged 60 years or older (1 - Risk 50-74 years 1-dose series) 2012 Zoster Vaccines (1 of 2) 2012 Colonoscopy 10/30/2024 10/30/2021 Colorectal Cancer Screening 10/30/2024 COVID-19 Vaccine ( - season) 2025 SDOH Screening 01/27/2026 01/27/2025 Depression Screening 02/03/2026 [...] AM EDT Narrative 03/06/2025 1:53 PM EDT [address] [place] [address] Mammography Report Signed Patient: Omayra Salmeron MR#: [id number] 7 : 1960 Acct:[id number] Age/Sex: 64 / F ADM Date: 02/21/25 Loc: HO.MAMMO Attending Dr: Kevyn Hdz MD Ordering Physician: Kevyn Hdz MD Resu lts: 1Negative Date of Service: 02/21/25 Follow Up: 1 Year From Orig inal Mammogram Procedure(s): MM tomosynthesis screening BI Accession Number(s): [id number] cc: Kevyn Hdz MD EXAMINATION: MM SCREENING [...] Kristina Brooks DO 03/06/2025 01:50 PM EDT RP Dictated By: Kristina Brooks DO Signed By: <Electronically signed by Kristina Brooks DO in OV> 03/06/25 1350 DD/ 1015 TD/TT: 02/21/25 1024 Open Cut Examiner: Procedure Note Donotuseinterpreter, Image - 03/06/2025 [facility] [address] [place], [place] [address] Mammography Report Signed Patient: Valdez Salmeron#: [id number] 7 : 1960cct:[id number] Age/Sex: 64 / FADM Date: 02/21/25 Loc: HO.MAMMO Attending Dr: Kevyn Hdz MD Ordering Physician: Kevyn Hdz MDResu lts: 1Negative Date of Service: 02/21/25Follow Up: 1 Year From Orig inal Mammogram Procedure(s): MM tomosynthesis screening BI Accession Number(s): [id number] cc: Kevyn Hdz MD EXAMINATION: MM SCREENING [...] 03/06/25 1350 DD/ 1015 TD/TT: 02/21/25 1024 Open Cut Examiner: Kevyn Murphy MD IMG BI PROCEDURES Fin al Result * Hepatitis A,B,C Profile (07/14/2023 1:24 PM EST) Hepatitis A IgM Nonreactive Nonreactive [facility] Comment:IgM antibodies to HAMMOND V not detected; does not exclude earlyacute or recovered HAV infection. ~Hepatitis B Surface Antibody REACTIVE Nonreactive [facility] Comment:REACTIVE: > 11.99 mI U/mL Hepatitis B Core Antibody Nonreactive Nonreactive [facility] Hepatitis C Antibody Nonreactive Nonreactive [facility] Comment:Antibodies to HCV no t detected; does not exclude early acuteHCV infection. Hepatitis B Surface Ag Negative Negative [facility] Blood Venous blood specimen / Unknown 07/14/2023 1:24 PM EST 07/14/2023 3:59 PM EST Kevyn Murphy MD LAB BLOOD ORDERABLES Final Result [facility] [address] [place] [address] [phone] * Hm Colonoscopy (10/30/2021) Colonoscopy Normal Normal 10/30/2021 Narrative Arelis Brooks - 10/30/2021 1:16 PM EST Recommended 3 year follow up ( see scanned report) us Historical Provider HEALTH MAINTENANCE Edited Result - Final from Last 3 Months or Most Recently Relevant to Health Maintenance Insurance [facility] [place] [address] [address] [place] [address] Care Teams Watch Inspector Final Movement Relationship Specialty Start Date End Date Kevyn Samson MD [address] [place] [address] PCP - General Internal Medicine 04/20/21
--- OUTSIDE RECORDS SUMMARY | 2025-07-18 11:03 | XMS_ITS | Encounter Summary ---
Author Organization [employer] Address [address] [facility] 7t [place] [address] Care Team Providers Care Sales Manager Name Role Phone Kevyn Samson MD Primary Care Provide r Encounter Details Date Type Department Care Team (Late st Contact Info) Description 12/27/2022 Abstract [facility] MEDICINE [address] [place], [place] [phone] Kevyn Samson MD [address] [place], [place] [phone] Social History Tobacco Use Types Packs/Day Years [...] documented as of this encounter Care Teams Sales Manager Relationship Specialty Start Date End Date Kevyn Samson MD [address] [place] [phone] PCP - General Internal Medicine 04/20/21 documented as of this encounter
--- OUTSIDE RECORDS SUMMARY | 2025-07-18 11:03 | XMS_ITS | Clinical Summary ---
Author Organization [facility] Address [address] [facility] [address] [place] [address] Phone Care Team Providers Care Social Work Administrator Name Role Phone Kevyn Hdz MD [...] ACO C3 ACO C3 ACO Care Teams Social Work Administrator Relationship Specialty Start Date End Date Kevyn Hdz MD [address] [place] [address] [address] [place] [phone] PCP - General Internal Medicine 02/04/24 Additional Source Comments The information contained in this document represents components of the legal health record. It is not the complete legal health record.[facility]
--- OUTSIDE RECORDS SUMMARY | 2025-07-18 11:03 | XMS_ITS | Encounter Summary ---
Author Organization [facility] Address [address] [place] [address] Care Team Providers Care Electronic Service Technician Name Role Phone Kevyn Hdz Primary Care Provider + Encounter Details Date Type Department Care Team (Late st Contact Info) Description 08/11/2023 Orders Only [facility] Nuclear Medicine [address] [place], [place] [phone] Jameson Barr MD [address] [place] [address] Social History Tobacco Use Types Packs/Day Years [...] on filedocumented in this encounter Care Teams Electronic Service Technician Relationship Specialty Start Date End Date Kevyn Hdz [address] [place] [address] PCP - General Internal Medicine 02/17/23 documented as of this encounter
--- OUTSIDE RECORDS SUMMARY | 2025-07-18 11:03 | XMS_ITS | Encounter Summary ---
Author Organization [employer] Address [address] [facility] [address] [place] [address] Care Team Providers Care Tool And Die Maker Level Five Name Role Phone Kevyn Samson MD Primary Care Provide r Reason for Visit * Reason Onset Date Comments Medication Question 06/05/2023 Encounter Details Date Type Department Care Team ([facility] st Contact Info) Description 06/05/2023 Refill [facility] MEDICINE [address] [place], [place] [phone] Kevyn Samson MD [address] [place], [place] [phone] Social History Tobacco Use Types Packs/Day Years [...] documented as of this encounter Care Teams Tool And Die Maker Level Five Relationship Specialty Start Date End Date Kevyn Samson MD [address] [place] [id number] PCP - General Internal Medicine 04/20/21 documented as of this encounter
--- OUTSIDE RECORDS SUMMARY | 2025-07-18 11:03 | XMS_ITS ---
Author Organization [facility] Address [address] [place] [address] Care Team Providers Care Cad Librarian Name Role Phone WhiteRaphael Kevyn Primary Care [...] 03/05/2023 Overview (03/31/2023): Confirmed via biopsy 02/2023 [facility], they are coordinating w/ pt for [...] Case discussed with Dr. Guevara Pathologist at [facility] who mentioned the testing could [...] with no success. I have asked our clinical services specialist to inquire for appointment [facility] Follow up with me after ENT Will also refer to Endocrinology at [facility] Steatosis of liver 08/09/2020 Overview (03/31/2023): Last [...] TotalDLP 533 mGy 533 mGy 0 mGy [id number] 12.9 mSv 12.9 mSv 0 mSv CTDIvol [...] Case discussed with Dr. Guevara Pathologist at [facility] who mentioned the testing could [...] with no success. I have asked our clinical services specialist to inquire for appointment [facility] Follow up with me after ENT Will also refer to Endocrinology at [facility]. ENT at [facility] does not have availability
--- OUTSIDE RECORDS SUMMARY | 2025-07-18 11:03 | XMS_ITS | Encounter Summary ---
Author Organization [employer] Address [address] [facility] [address] [place] [address] Care Team Providers Care Water Pollution Control Technician Name Role Phone Kevyn Samson MD Primary Care Provide r Reason for Visit * Reason Onset Date Comments Other 01/08/2023 Encounter Details Date Type Department Care Team ([facility] st Contact Info) Description 01/08/2023 Telephone [facility] [address] [place], [place] [phone] Kevyn Samson MD [address] [place], [place] [phone] Other Social History Tobacco Use Types Packs/Day [...] office to be able to schedule her. Bone Plant Supervisor offered to fax order and patient stated it's not the order but she was unsureof what other paperwork needs to be sent. Please advise. Patient speaks chinese. documented in this encounter Plan of Treatment Not on file documented as of this encounter Visit Diagnoses Not on filedocumented in this encounter Additional Health Concerns Assessment Noted Time PHQ-9 Depression Total Score: 2 12/27/19 23 9:28 AM EDT documented as of this encounter Care Teams Water Pollution Control Technician Relationship Specialty Start Date End Date Kevyn Samson MD [address] [place] [address] PCP - General Internal Medicine 04/20/21 documented as of this encounter
--- OUTSIDE RECORDS SUMMARY | 2025-07-18 11:03 | XMS_ITS | Encounter Summary ---
Author Organization [facility] Address [address] [place] [address] Care Team Providers Care Plug Overwrap Machine Tender Name Role Phone Kevyn Hdz Primary Care Provider + Encounter Details Date Type Department Care Team (Late st Contact Info) Description 05/08/2023 Orders Only [facility] Nuclear Medicine [address] [place], [place] [phone] Jameson Barr MD [address] [place] [address] Social History Tobacco Use Types Packs/Day Years [...] on filedocumented in this encounter Care Teams Plug Overwrap Machine Tender Relationship Specialty Start Date End Date Kevyn Hdz [address] [place] [address] PCP - General Internal Medicine 02/17/23 documented as of this encounter
--- OUTSIDE RECORDS SUMMARY | 2025-07-18 11:03 | XMS_ITS | Clinical Summary ---
Author Organization [facility] Address [address] [place] [address] Care Team Providers Care Fretted Instrument Inspector Name Role Phone Kevyn Hdz Primary Care [...] 03/05/2023 Overview (03/31/2023): Confirmed via biopsy 02/2023 [facility], they are coordinating w/ pt for [...] Case discussed with Dr. Guevara Pathologist at [facility] who mentioned the testing [...] with no success. I have asked our property management specialist to inquire for appointment availability with an ENT at [facility]. Follow up with me after ENT [...] Case discussed with Dr. Guevara Pathologist at [facility] who mentioned the testing [...] with no success. I have asked our property management specialist to inquire for appointment availability at [facility]. Follow up with me after ENT Will also refer to Endocrinology at [facility]. ENT at [facility] does not have availability Immunizations Immunization Administration [...] (1 - 1-dose 75+ series) 2037 Insurance [facility] Advance Directives * Presumed Full Code (Latest Code Status on File) Date Activated Date Inactivated Comments 04/07/2023 6:05 AM 04/08/2023 5:51 PM Care Teams Fretted Instrument Inspector Relationship Specialty Start Date End Date Kevyn Hdz [address] [place] [address] PCP - General Internal Medicine 02/17/23
== END 2025-07-18 10:01 | disposition home or self-care (01) ==
LOC: HO.HGI 09:35
PROVIDERS: PCP Internal Medicine; Visit Provider Internal Medicine Gastroenterology
DX: K21.9 Gastro-esophageal reflux disease without esophagitis (principal); K63.5 Polyp of colon; K59.00 Constipation, unspecified
CPT/HCPCS: 99214

== ENCOUNTER 2025-08-04 10:23 | Outpatient (REF) | payer OTHER, SELFPAY ==
--- NOTE | ~2025-08-04 | US_ITS ---
EXAMINATION: US THYROID HISTORY: Z85.850 - Personal history of malignant neoplasm of thyroid TECHNIQUE: Real-time grayscale ultrasound imaging was performed and images were reviewed. COMPARISON: Comparison is made with the prior examination dated 09/12/2022. FINDINGS: Sonographic examination of the thyroid bed was performed. No residual thyroid tissue is identified. Multiple normal-appearing lymph nodes are identified as described below: Right level II lymph node measuring 10 x 5 x 5 mm. Right level II lymph node measuring 8 x 3 x 5 mm. Right level VA lymph node measuring 8 x 3 x 7 mm. Right level VB lymph node measuring 10 x 5 x 8 mm Left level IB lymph node measuring 13 x 6 x 8 mm. Left level II lymph node measuring 8 x 4 x 4 mm. Left level III lymph node measuring 7 x 2 x 7 mm. Left level III lymph node measuring 7 x 4 x 6 mm. In addition, there is a right level III lymph node measuring 5 x 3 x 5 mm which does not have visible fatty hilum. There is a left level IB lymph node measuring 5 x 3 x 4 mm which also does not demonstrate a normal fatty hilum. US/US thyroid IMPRESSION: No residual thyroid tissue is identified. There are multiple lymph nodes in the neck bilaterally, two of which measure up to 5 mm in size and do not demonstrate fatty simon. Follow-up is recommended. ACR TI-RADS Guidelines TR1 (0 points): Benign. No follow-up or biopsy required TR2 (2 points): Not Suspicious. No biopsy or follow up indicated TR3 (3 points): Mildly Suspicious. FNA if >= 2.5 cm, Follow if >= 1.5 cm TR4 (4-6 points): Moderately Suspicious. FNA if >= 1.5 cm, Follow if >= 1.0 cm TR5 (>=7 points): Highly Suspicious. FNA if >= 1.0 cm, Follow if >= 0.5 cm Electronically signed by: Jameson Sanchez MD 08/04/2025 12:42 PM [facility]
== END 2025-08-04 10:24 | disposition home or self-care (01) ==
LOC: HO.US 10:23
PROVIDERS: Visit Provider Student in an Organized Health Care Education/Training Program
DX: Z85.850 Personal history of malignant neoplasm of thyroid (principal)
CPT/HCPCS: 76536

== ENCOUNTER → 2025-08-04 10:24 | Outpatient (BNV) | payer OTHER, SELFPAY | PROVIDERS: Visit Provider Radiology Diagnostic Radiology | DX: R59.0 Localized enlarged lymph nodes (principal); Z85.850 Personal history of malignant neoplasm of thyroid | CPT/HCPCS: 76536 ==